=== PATIENT | female | born 1975 | race Caucasian/White ===

== ENCOUNTER 2021-11-14 22:36 | Emergency (ER) | payer BC, MEDICAID, SELFPAY ==
[2021-11-14 22:45] VITALS: BP 127/86; PULSE 86; RESP 18; TEMP 36.7; O2SAT 94; BMI 25.5
--- NOTE | 2021-11-14 23:03 | ED_ITS ---
HPI - General Adult General Time Seen by Provider: 23:09 Date Seen: 11/14/21 Chief complaint: Back Injury/Pain Stated complaint: back pain Time Seen by Provider: 11/14/21 22:37 Source: patient Mode of arrival: ambulatory Limitations: no limitations History of Present Illness HPI narrative: 38-year-old female who comes flank pain after a fall several days ago. Says she tripped cleaning the garage and hit her back on the edge of a shelf. There injury. Denies any numbness or tingling in the legs. Pain is worse with movement, breathing, coughing. She denies shortness of breath. She has been taking ibuprofen for this and applying topical balm but no other treatment. Denies hematuria. Related Data Home Medications Medication Instructions Recorded Confirmed sertraline 50 mg tablet mg 11/14/21 Allergies Allergy/AdvReac Type Severity Reaction Status Date / Time No Known Drug Allergies Allergy Verified 11/14/21 22:50 Review of Systems Status of ROS: Reports: 10 or more systems reviewed and unremarkable except as noted in History and below [facility] Surgical History (Updated 11/14/21 @ 22:51 by Cait Mike RN) History of surgery on left wrist Hx of hysterectomy Social History Smoking Status: Never smoker Do you use any of these nicotine containing products: None Second hand tobacco smoke exposure: No How often do you have a drink containing alcohol: 2-3 times a week AUDIT-C Alcohol total score: 3 Non-prescribed substance use: denies use Exam Narrative: Exam Narrative: General: Well-developed and well-nourished, no acute distress Head: Atraumatic and normocephalic Eyes: Pupils are equal reactive, extraocular motions intact, conjunctiva clear ENT: External nose and ears are normal, posterior pharynx without erythema or exudate Neck: No midline cervical tenderness, full spontaneous range of motion the neck, trachea midline, no adenopathy Heart: Regular rate and rhythm no murmurs or thrills Lungs: Clear to auscultation bilaterally without wheezes or crackles Abdomen: Soft, nontender, nondistended with active bowel sounds Musculoskeletal: Left flank and posterior lower rib tenderness with 4 cm bruise Neurologic: Awake, alert, and oriented x3, no gross focal neurologic deficits, cranial nerves intact as tested Psych: Mood and affect are appropriate Skin: No rashes Const: Vital Signs, click to edit/add: Vital Signs - 24 hr 11/14/21 22:45 Temperature 98.1 F Pulse Rate [Right Pulse Oximeter] 86 Respiratory Rate 18 Blood Pressure [Le ft Upper Arm] 127/86 Pulse Oximetry 94 Course Reevaluation(s) Reevaluation #1: CT scan is negative for any acute traumatic findings. Patient is stable for discharge Time: 01:22 Vital Signs Vital signs: Initial Vital Signs Temperature 98.1 F 11/14/21 22:45 Temperature Source Temporal Artery Scan 11/14/21 22:45 Pulse Rate 86 11/14/21 22:45 Respiratory Rate 18 11/14/21 22:45 Blood Pressure 127/86 11/14/21 22:45 Blood Pressure Mean 99 11/14/21 22:45 Blood Pressure Position Supine 11/14/21 22:45 Pulse Oximetry 94 11/14/21 22:45 Oxygen Delivery Method 11/14/21 22:45 Vital Signs Temperature 98.1 F 11/14/21 22:45 Pulse Rate 86 11/14/21 22:45 Respiratory Rate 18 11/14/21 22:45 Blood Pressure 127/86 11/14/21 22:45 Pulse Oximetry 94 11/14/21 22:45 Temperature 98.1 F 11/14/21 22:45 Pulse Rate 86 11/14/21 22:45 Respiratory Rate 18 11/14/21 22:45 Blood Pressure 127/86 11/14/21 22:45 Pulse Oximetry 94 11/14/21 22:45 Medical Decision Making MDM Narrative Medical decision making narrative: Patient seen and examined, prior records reviewed. Differential diagnosis includes but not limited to contusion, hematoma, psoas hematoma, renal laceration, rib fracture. Patient left flank pain after fall several days ago. Some bruising in the flank area. Due to continued pain out of proportion for soft tissue injury, CT ordered to evaluate for deeper injury. Toradol and Ativan are ordered for pain and spasm. Medical Records Medical records reviewed: Yes I reviewed the patient's medical records Lab Data Lab results reviewed: Yes I reviewed the patient's lab results Imaging Data CT scan - abdomen: Attestation: I have reviewed the pertinent imaging results. My impression: Negative Radiologist's impression: No acute findings Discharge Plan Discharge Clinical Impression: Contusion of flank Patient Disposition: Home, Self-Care Condition: Improved Instructions: Contusion in Adults (ED) Additional Instructions: Warm packs to areas of pain. Gentle stretching and gentle massage. Continue ibuprofen take Flexeril and [place] as needed. Do not drive for at least 12 hours after you take this. Follow-up with your primary care doctor this week. Activity Level: Activity as Tolerated Discharge Diet: Regular Prescriptions: No Action sertraline 50 mg tablet 0RF Label Comments: TAKE 1 TABLET BY MOUTH DAILY Stand Alone Forms: [facility] Info Instructions
--- NOTE | 2021-11-14 23:08 | CRLHL7_ITS ---
For Patients: As a result of the Century Cures Act, medical imaging exams and procedure reports are released immediately into your electronic medical record. You may view this report before your referring provider. If you have questions, please contact your health care provider. INDICATION: Right flank pain. TECHNIQUE: CT abdomen and pelvis without contrast. COMPARISON: None. FINDINGS: Lower chest: Unremarkable. Liver: Normal in size and attenuation. No suspicious masses. Gallbladder and bile ducts: No stones or inflammation. No biliary dilatation. Pancreas: Unremarkable. No mass or inflammation. Spleen: Normal in size. No masses. Adrenal glands: Normal in size. No nodules. Kidneys: Normal in size. No suspicious masses, stones, or hydronephrosis. GI tract: Unremarkable. Normal in caliber. No sign of mass or inflammation. Normal appendix. Vasculature: Abdominal aorta is normal in caliber. Lymph nodes: No lymphadenopathy. Peritoneum/Abdominal Wall: Unremarkable. No sign of mass or infiltration. No free air or significant free fluid. Pelvic organs: Unremarkable. No pelvic masses. Bones: Unremarkable for age. IMPRESSION: Normal CT of the abdomen and pelvis. No finding to explain right flank pain. Specifically no stones and no hydronephrosis. Please note that all CT scans at this facility use dose modulation, iterative reconstruction, and/or weight-based dosing when appropriate to reduce radiation dose to as low as reasonably achievable. Dictated by Román Parker MD @ 11/15/2021 1:21:25 AM (Electronically Signed)
[2021-11-14] MEDS: KETOROLAC 30 MG/ML inj IM (23:15)
[2021-11-14] MEDS: LORazepam 0.5 MG TABLET PO (23:15)
== END 2021-11-15 01:29 | disposition home or self-care (01) ==
LOC: ED 23:48
PROVIDERS: Emergency Provider Family Medicine
DX: S30.1XXA Contusion of abdominal wall, initial encounter (principal); W01.10XA Fall on same level from slipping, tripping and stumbling with subsequent striking against unspecified object, initial encounter
CPT/HCPCS: 74176; 96372; 99284; A9270; J1885

== ENCOUNTER 2022-11-20 17:01 | Emergency (ER) | payer BC, MEDICAID, SELFPAY ==
[2022-11-20 17:04] VITALS: BP 187/124; PULSE 111; RESP 16; TEMP 36.5; O2SAT 95; BMI 22.9
--- NOTE | 2022-11-20 17:33 | ED_ITS ---
HPI - General Adult General Chief complaint: Fall/Minor Trauma Stated complaint: face pain from fall yesterday Time Seen by Provider: 11/20/22 17:10 History of Present Illness HPI narrative: Pt states [place] when a dog ran out in front of her. Pt states she hit face/nose on concrete and is unsure if she had a LOC. Pt states she immediately got up and walked to bathroom with friends and then started to faint in bathroom. Pt states she was evaluated by [facility] and taken to [place] [facility]. Pt states they did blood work, but no imaging . Pt states since this morning, she feels very off , out of it, and like mentally something is really wrong. I can't stop crying, like I feel very depressed and for no reason. All of my teeth hurt. Pt does score positive for suicide screening, states yes to feeling suicidal over past two weeks. 47-year-old woman presenting to the emergency department just not feeling very well with a lot of pain in her face. Seems primarily related to tooth that she broke in a fall yesterday at a festival. She actually did a face plant. She is not complaining of neck or back pain. There may have been loss of consciousness. Been feeling more stressed lately and says she has been doing really well but in last 24 hours then she did have a couple alcoholic drinks. She has not contacted her sponsor. Was evaluated in the local emergency department yesterday without imaging. Blood work was done. She says she had been drinking at the festival in fact they had just gotten there and a dog ran out in front of her and she tripped over the leash falling face down. They did give her a sealant to apply to the tooth and she is to follow up with a dentist but has worried about how far out that appointment will be in the amount of ?shit? 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 She feels embarrassed and generally hides her smile. In fact all of her teeth hurt. Her head feels funny and she is not sure if this is related to her injury or becoming more depressed. Just feels increasingly off and out of it and feels like something is really wrong. I did review concern of suicidality; Ms. Duque clearly denies and indicates that she has resources. Related Data Previous Rx's Medication Instructions Recorded sertraline 50 mg tablet 50 mg PO QDAY #90 tabs 12/21/21 Allergies Allergy/AdvReac Type Severity Reaction Status Date / Time No Known Drug Allergies Allergy Verified 11/20/22 17:13 Review of Systems Status of ROS: Reports: 6 or more systems reviewed and unremarkable except as noted in History and below [facility] Medical History History of hypothyroidism ?Z86.39 - Personal history of other endocrine, nutritional and metabolic disease (ICD-10) Surgical History History of foot surgery ?Z98.890 - Other specified postprocedural states (ICD-10) Hx of hysterectomy ?Z90.710 - Acquired absence of both cervix and uterus (ICD-10) History of surgery on left wrist ?Z98.890 - Other specified postprocedural states (ICD-10) Social History Smoking Status: Current every day smoker Do you use any of these nicotine containing products: E-Cigarettes and Vaping Products Second hand tobacco smoke exposure: No How often do you have a drink containing alcohol: 2-3 times a week AUDIT-C Alcohol total score: 3 Non-prescribed substance use: denies use service: No Exam Narrative: Exam Narrative: Pleasant. Smiles hesitantly. Generally flushed. Cranial nerves 2-12 intact. Extraocular movements are full. Fluid. There is light abrasion at the philtrum of her lip. Oropharyngeal exam shows some paint over fractured tooth 11. TMJs are not tender. Neck is supple nontender back nontender. She is breathing easily. Moving all extremities without difficulty. There is no discrete pain beyond what I think is in the area of her tooth. Does have however some right TMJ area pain. Const: Vital Signs, click to edit/add: Vital Signs - 24 hr 11/20/22 17:04 Temperature 97.7 F Pulse Rate [Pulse Oximeter] 111 H Respiratory Rate 16 Blood Pressure [Ri ght Upper Arm] 187/124 H Pulse Oximetry 95 Oxygen Delivery Me thod Room Air Documenting provider has reviewed patient's vital signs: yes Course Vital Signs Vital signs: Initial Vital Signs Temperature 97.7 F 11/20/22 17:04 Temperature Source Temporal Artery Scan 11/20/22 17:04 Pulse Rate 111 H 11/20/22 17:04 Respiratory Rate 16 11/20/22 17:04 Blood Pressure 187/124 H 11/20/22 17:04 Blood Pressure Mean 145 H 11/20/22 17:04 Blood Pressure Position Sitting 11/20/22 17:04 Pulse Oximetry 95 11/20/22 17:04 Oxygen Delivery Method Room Air 11/20/22 17:04 Vital Signs Temperature 97.7 F 11/20/22 17:04 Pulse Rate 111 H 11/20/22 17:04 Respiratory Rate 16 11/20/22 17:04 Blood Pressure 187/124 H 11/20/22 17:04 Pulse Oximetry 95 11/20/22 17:04 Oxygen Delivery Method Room Air 11/20/22 17:04 Temperature 97.7 F 11/20/22 17:04 Pulse Rate 96 11/20/22 19:32 Respiratory Rate 16 11/20/22 19:32 Blood Pressure 178/119 H 11/20/22 19:32 Pulse Oximetry 95 11/20/22 17:04 Oxygen Delivery Method Room Air 11/20/22 17:04 Medical Decision Making MDM Narrative Medical decision making narrative: I think certainly reasonable to image head and facial bones. If nothing else would provides peace of mind as I think anxiety stress is amplifying other history/symptoms. I did offer a bupivacaine injection which I think ultimately made her feel more nervous. Also indicating general pain more than discrete tooth pain. Settled on a couple tabs of [place]. Perhaps also return to alcohol ingestion generates a feeling of more of a toxic effect than prior generate this feeling of ?out of it?. As well as feelings of sadness. I did review the CT images of head and facial bones and could not appreciate any acute abnormality. Noncontrast CT images acquired through the facial bones. Comparison None. Findings The facial bones are intact. No acute fracture or dislocation. No soft tissue hematoma. Mild sinusoidal nasal septal deviation. Mild right maxillary sinus mucosal thickening. Small left maxillary sinus retention cyst or polyp. The globes are symmetric. No retrobulbar hematoma. Dental caries. IMPRESSION: No acute fracture or dislocation of the facial bones. Noncontrast CT images acquired through the brain. COMPARISON: None. FINDINGS: The ventricles and sulci are within normal limits for patient age. No mass effect or midline shift. The cheng-white differentiation is maintained. No acute intracranial hemorrhage or pathologic extra-axial fluid collection. The globes are symmetric. The calvarium is intact. Small left maxillary sinus retention cyst or polyp. Mild right maxillary sinus mucosal thickening. Trace right mastoid effusion. IMPRESSION: No acute intracranial hemorrhage or mass effect. Overall improved and I think relieved during time in the emergency department. Discussed use of mask at her work for comfort. See patient discharge plan Discharge Plan Discharge Clinical Impression: Pain, dental, Sadness Patient Disposition: Home, Self-Care Condition: Improved Additional Instructions: Try to get quality and regular sleep. Be up to see the morning sunlight. Try to get in little heart pumping exercise daily. Surely all of this will be good for your mental health. Think it is a fine idea to reach out to Dr. Edwards. Dust off your relationship with your therapist. This dental list is a place to start other than any prior clinic you have been to. Reach out to your social support network. Plan something fun to do with other people this coming week. And/or something special just for you. Can take up to 800mg of ibuprofen or up to 1000mg of acetaminophen per dose. Alternative to the ibuprofen might be up to 500mg of naproxen 2 times daily. Prescriptions: No Action sertraline 50 mg tablet 50 mg PO QDAY Qty: 90 3RF Patient Comments: TAKE 1 TABLET BY MOUTH DAILY Follow Up/Referrals: Ravi Smith MD [Primary Care Provider] - Stand Alone Forms: [employer] Info Instructions
--- NOTE | 2022-11-20 17:54 | CRLHL7_ITS ---
For Patients: As a result of the Century Cures Act, medical imaging exams and procedure reports are released immediately into your electronic medical record. You may view this report before your referring provider. If you have questions, please contact your health care provider. INDICATION: Fall. TECHNIQUE: Noncontrast CT images acquired through the brain. COMPARISON: None. FINDINGS: The ventricles and sulci are within normal limits for patient age. No mass effect or midline shift. The cheng-white differentiation is maintained. No acute intracranial hemorrhage or pathologic extra-axial fluid collection. The globes are symmetric. The calvarium is intact. Small left maxillary sinus retention cyst or polyp. Mild right maxillary sinus mucosal thickening. Trace right mastoid effusion. IMPRESSION: No acute intracranial hemorrhage or mass effect. Please note that all CT scans at this facility use dose modulation, iterative reconstruction, and/or weight-based dosing when appropriate to reduce radiation dose to as low as reasonably achievable. Dictated by Jw Zuniga MD @ 11/20/2022 6:39:44 PM (Electronically Signed)
--- NOTE | 2022-11-20 17:54 | CRLHL7_ITS ---
For Patients: As a result of the Cures Act, medical imaging exams and procedure reports are released immediately into your electronic medical record. You may view this report before your referring provider. If you have questions, please contact your health care provider. INDICATION: Fall. Technique Noncontrast CT images acquired through the facial bones. Comparison None. Findings The facial bones are intact. No acute fracture or dislocation. No soft tissue hematoma. Mild sinusoidal nasal septal deviation. Mild right maxillary sinus mucosal thickening. Small left maxillary sinus retention cyst or polyp. The globes are symmetric. No retrobulbar hematoma. Dental caries. IMPRESSION: No acute fracture or dislocation of the facial bones. Please note that all CT scans at this facility use dose modulation, iterative reconstruction, and/or weight-based dosing when appropriate to reduce radiation dose to as low as reasonably achievable. Dictated by Jw Zuniga MD @ 11/20/2022 6:45:32 PM (Electronically Signed)
[2022-11-20] MEDS: BUPIVACAINE 0.25% 30 ML INJECTION (18:12)
[2022-11-20] MEDS: HYDROCODONE-ACETAMIN 5-325 MG 1 TAB 2 TAB PO (19:23)
[2022-11-20 19:32] VITALS: BP 178/119; PULSE 96; RESP 16
== END 2022-11-20 19:32 | disposition home or self-care (01) ==
PROVIDERS: Emergency Provider Family Medicine; PCP Family Medicine
DX: K08.89 Other specified disorders of teeth and supporting structures (principal)
CPT/HCPCS: 70450; 70486; 99283; 99284; A9270; J0665

== ENCOUNTER 2023-07-07 13:29 | Emergency (ER) | payer BC, SELFPAY ==
[2023-07-07 14:01] VITALS: BP 164/123; PULSE 100; RESP 24; TEMP 36.8; O2SAT 98; BMI 25.1
--- NOTE | 2023-07-07 15:18 | ED.PSYCH ---
HPI - Psych General Chief Complaint: Psychiatric Problem/Disorder Stated Complaint: Suicidal Time Seen by Provider: 07/07/23 14:24 History of Present Illness HPI Narrative: This 48-year-old female comes in reporting depression and anxiety symptoms. She states that she is sober from alcohol abuse for the past 4 years. She does not report any use of alcohol or street drugs currently. She has always had some depression in and anxiety and has been on medications in the past but currently is not taking anything. She states that she is not sleeping well at night. She does not report any specific triggers that have made things worse for her. She states that she does have some thoughts of not wanting to live but does not have any specific plan and states that she would never harm herself. She is interested in obtaining prescriptions for medicine to help her feel better. Related Data Previous Rx's Medication Instructions Recorded sertraline 50 mg tablet 50 mg PO QDAY #90 tabs 12/21/21 hydroxyzine HCl 25 mg tablet 25 mg PO QID #30 tabs 07/07/23 lorazepam 0.5 mg tablet (Ativan) 0.5 mg PO BID PRN #15 tabs 07/07/23 sertraline 50 mg tablet (Zoloft) 50 mg PO DAILY #30 tabs 07/07/23 Allergies Allergy/AdvReac Type Severity Reaction Status Date / Time No Known Drug Allergies Allergy Verified 11/20/22 17:13 Review of Systems Status of ROS: Reports: 10 or more systems reviewed and unremarkable except as noted in History and below Narrative: Constitutional: No fevers, no weight gain or loss. Eyes: No discharge. No vision changes. HENT: No congestion, no sore throat, no ear pain. Cardiovascular: No chest pain, no palpitations. Respiratory: No shortness of breath, no wheezes, no cough. Gastrointestinal: No abdominal pain, no vomiting, no diarrhea. Genitourinary: No dysuria, no hematuria. Musculoskeletal: Normal range of motion. Skin: No rashes, no pruritis. Neurological: No dizziness, weakness, sensory change, speech change. Endo/Heme/Allergies: No bruising or bleeding. No polydipsia. Pysch: Anxiety and depression with insomnia. She admits to having some thoughts of not wanting to live but does not specify any particular plan and has not harmed herself in the past. All other systems reviewed and are negative. PFSH PFSH Medical History History of hypothyroidism ?Z86.39 - Personal history of other endocrine, nutritional and metabolic disease (ICD-10) Surgical History History of foot surgery ?Z98.890 - Other specified postprocedural states (ICD-10) Hx of hysterectomy ?Z90.710 - Acquired absence of both cervix and uterus (ICD-10) History of surgery on left wrist ?Z98.890 - Other specified postprocedural states (ICD-10) Social History Smoking Status: Current every day smoker Do you use any of these nicotine containing products: E-Cigarettes and Vaping Products Second hand tobacco smoke exposure: No How often do you have a drink containing alcohol: 2-3 times a week AUDIT-C Alcohol total score: 3 Non-prescribed substance use: denies use service: No Exam Narrative: Exam Narrative: Constitutional: Well-developed, well-nourished, no acute distress. HEENT: Normocephalic, atraumatic. Neck: Normal range of motion. Nontender. Supple. Heart: Regular. No murmurs. Normal rate. Intact distal pulses. Lungs: Clear to auscultation. No chest discomfort. No wheezes, rhonchi, or rales. Abdomen: Normal bowel sounds. Nontender. No rebound tenderness. Genitalia: Deferred. Back: No midline tenderness. Normal range of motion. Extremities: Normal range of motion. No injury. Skin: Intact. No rash. Warm. No erythema or pallor. Neurologic: No altered sensation. No weakness. Alert and oriented. Psychiatric: She is tearful at times. She appears anxious with depression. She reports insomnia. Nursing notes and vitals signs are reviewed. Const: Vital Signs, click to edit/add: Vital Signs - 24 hr 07/07/23 14:01 Temperature 98.3 F Pulse Rate [Pulse Oximeter] 100 Respiratory Rate 24 Blood Pressure [Ri ght Upper Arm] 164/123 H Pulse Oximetry 98 Oxygen Delivery Me thod Room Air Course Vital Signs Vital signs: Initial Vital Signs Temperature 98.3 F 07/07/23 14:01 Temperature Source Temporal Artery Scan 07/07/23 14:01 Pulse Rate 100 07/07/23 14:01 Respiratory Rate 24 07/07/23 14:01 Blood Pressure 164/123 H 07/07/23 14:01 Blood Pressure Mean 136 H 07/07/23 14:01 Pulse Oximetry 98 07/07/23 14:01 Oxygen Delivery Method Room Air 07/07/23 14:01 Vital Signs Temperature 98.3 F 07/07/23 14:01 Pulse Rate 100 07/07/23 14:01 Respiratory Rate 24 07/07/23 14:01 Blood Pressure 164/123 H 07/07/23 14:01 Pulse Oximetry 98 07/07/23 14:01 Oxygen Delivery Method Room Air 07/07/23 14:01 Temperature 98.3 F 07/07/23 14:01 Pulse Rate 100 07/07/23 14:01 Respiratory Rate 24 07/07/23 14:01 Blood Pressure 164/123 H 07/07/23 14:01 Pulse Oximetry 98 07/07/23 14:01 Oxygen Delivery Method Room Air 07/07/23 14:01 MDM - Psych MDM Narrative Medical decision making narrative: This 48-year-old female comes in for psychiatric evaluation and treatment. I did discuss the role of a telehealth assessment. She states that she underwent this about 4 years ago and was placed in an inpatient facility for 3 days. She says it was the most terrible experience for her. She states that she feels she does not need any kind of in patient treatment but is interested in restarting medications to help her with her depression and anxiety. She did receive a oral dose of Ativan 1 mg to treat her current symptoms. I did provide prescription for more tablets of Ativan 0.5 mg with the understanding that we will not refill this here. She also received prescription for Zoloft and hydroxyzine. She is instructed to follow-up with her primary physician in 2-3 weeks for ongoing management or return if worsening symptoms happen. Discharge Plan Discharge Clinical Impression: Anxiety, Depression Patient Disposition: Home w/ Parent or Adult Condition: Stable Additional Instructions: Take medications as prescribed. Follow up with primary physician in 2-3 weeks for ongoing management. Return if not improving or worsening symptoms happen. Prescriptions: New lorazepam [Ativan] 0.5 mg tablet 0.5 mg PO BID PRNQty: 15 0RF hydroxyzine HCl 25 mg tablet 25 mg PO QID Qty: 30 0RF sertraline [Zoloft] 50 mg tablet 50 mg PO DAILY Qty: 30 2RF No Action sertraline 50 mg tablet 50 mg PO QDAY Qty: 90 3RF Patient Comments: TAKE 1 TABLET BY MOUTH DAILY Follow Up/Referrals: Ravi Smith MD [Primary Care Provider] - Stand Alone Forms: [facility] Info Instructions
[2023-07-07] MEDS: LORazepam 1 MG TABLET PO (15:25)
== END 2023-07-07 15:35 | disposition home or self-care (01) ==
PROVIDERS: Emergency Provider Emergency Medicine Emergency Medical Services; PCP Family Medicine
DX: F32.A Depression, unspecified (principal); F41.9 Anxiety disorder, unspecified; F10.10 Alcohol abuse, uncomplicated
CPT/HCPCS: 99284; A9270

== ENCOUNTER 2023-07-19 16:04 | Emergency (ER) | payer BC, SELFPAY ==
[2023-07-19 16:34] VITALS: BP 159/115; PULSE 96; RESP 16; TEMP 36.5; O2SAT 99; BMI 22.7
--- NOTE | 2023-07-19 17:28 | ED_ITS ---
HPI - Anxiety General Chief Complaint: Anxiety Stated Complaint: Anxiety Time Seen by Provider: 07/19/23 16:05 History of Present Illness HPI narrative: This patient is a 48-year-old female that has anxiety and depression symptoms. 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 She does however have significant anxiety symptoms with insomnia. She was seen by me about 12 days ago and benefited from an oral dose of Ativan 1 mg. She did receive a prescription for Ativan 0.5 mg but states that she was afraid to take them. She also received a prescription for Zoloft and has not started the medicine. She had an appointment with her primary physician and received a phone call that the appointment was canceled. She comes in here instead. Related Data Previous Rx's Medication Instructions Recorded sertraline 50 mg tablet 50 mg PO QDAY #90 tabs 12/21/21 hydroxyzine HCl 25 mg tablet 25 mg PO QID #30 tabs 07/07/23 lorazepam 0.5 mg tablet (Ativan) 0.5 mg PO BID PRN #15 tabs 07/07/23 sertraline 50 mg tablet (Zoloft) 50 mg PO DAILY #30 tabs 07/07/23 Allergies Allergy/AdvReac Type Severity Reaction Status Date / Time No Known Drug Allergies Allergy Verified 07/19/23 16:40 Review of Systems Status of ROS: Reports: 10 or more systems reviewed and unremarkable except as noted in History and below Narrative: Constitutional: No fevers, no weight gain or loss. Eyes: No discharge. No vision changes. HENT: No congestion, no sore throat, no ear pain. Cardiovascular: No chest pain, no palpitations. Respiratory: No shortness of breath, no wheezes, no cough. Gastrointestinal: No abdominal pain, no vomiting, no diarrhea. Genitourinary: No dysuria, no hematuria. Musculoskeletal: Normal range of motion. Skin: No rashes, no pruritis. Neurological: No dizziness, weakness, sensory change, speech change. Endo/Heme/Allergies: No bruising or bleeding. No polydipsia. Pysch: no suicidality. Anxiety and insomnia as described above. All other systems reviewed and are negative. [facility] Medical History History of hypothyroidism ?Z86.39 - Personal history of other endocrine, nutritional and metabolic disease (ICD-10) Surgical History History of foot surgery ?Z98.890 - Other specified postprocedural states (ICD-10) Hx of hysterectomy ?Z90.710 - Acquired absence of both cervix and uterus (ICD-10) History of surgery on left wrist ?Z98.890 - Other specified postprocedural states (ICD-10) Social History Smoking Status: Current every day smoker Do you use any of these nicotine containing products: E-Cigarettes and Vaping Products Second hand tobacco smoke exposure: No How often do you have a drink containing alcohol: monthly or less How often do you have six or more drinks on one occasion: Never AUDIT-C Alcohol total score: 1 Non-prescribed substance use: denies use service: No Exam Narrative: Exam Narrative: Constitutional: Well-developed, well-nourished, no acute distress. HEENT: Normocephalic, atraumatic. Neck: Normal range of motion. Nontender. Supple. Heart: Regular. No murmurs. Normal rate. Intact distal pulses. Lungs: Clear to auscultation. No chest discomfort. No wheezes, rhonchi, or rales. Abdomen: Normal bowel sounds. Nontender. No rebound tenderness. Genitalia: Deferred. Back: No midline tenderness. Normal range of motion. Extremities: Normal range of motion. No injury. Skin: Intact. No rash. Warm. No erythema or pallor. Neurologic: No altered sensation. No weakness. Alert and oriented. Psychiatric: No suicidality. The patient is tearful at times but always pleasant and cooperative. She does not appear to be extremely anxious. Nursing notes and vitals signs are reviewed. Const: Vital Signs, click to edit/add: Vital Signs - 24 hr 07/19/23 16:34 Temperature 97.7 F Pulse Rate [Pulse Oximeter] 96 Respiratory Rate 16 Blood Pressure [Le ft Upper Arm] 159/115 H Pulse Oximetry 99 Oxygen Delivery Me thod Room Air Course Vital Signs Vital signs: Initial Vital Signs Temperature 97.7 F 07/19/23 16:34 Temperature Source Temporal Artery Scan 03/20/24 16:34 Pulse Rate 96 07/19/23 16:34 Respiratory Rate 16 07/19/23 16:34 Blood Pressure 159/115 H 07/19/23 16:34 Blood Pressure Mean 129 H 07/19/23 16:34 Blood Pressure Position Sitting 07/19/23 16:34 Pulse Oximetry 99 07/19/23 16:34 Oxygen Delivery Method Room Air 07/19/23 16:34 Vital Signs Temperature 97.7 F 07/19/23 16:34 Pulse Rate 96 07/19/23 16:34 Respiratory Rate 16 07/19/23 16:34 Blood Pressure 159/115 H 07/19/23 16:34 Pulse Oximetry 99 07/19/23 16:34 Oxygen Delivery Method Room Air 07/19/23 16:34 Temperature 97.7 F 07/19/23 16:34 Pulse Rate 96 07/19/23 16:34 Respiratory Rate 16 07/19/23 16:34 Blood Pressure 159/115 H 07/19/23 16:34 Pulse Oximetry 99 07/19/23 16:34 Oxygen Delivery Method Room Air 07/19/23 16:34 MDM - Anxiety MDM Narrative Medical decision making narrative: This patient has prescriptions for Zoloft and Ativan in her keeping but has not used these medicines. I encouraged her to use them as indicated and directed. She did use some hydroxyzine a few times which helped her with anxiety and ins omnia. She is asking for recommendation for primary care physician to help manage these symptoms. I did make some recommendations. The patient is not showing any sign of suicidality or worsening symptoms. She appears better in her mood then when I saw her 12 days ago. I encouraged to use the medicines she has as prescribed and to follow up with the primary care appointment. Discharge Plan Discharge Clinical Impression: Insomnia, Anxiety Patient Disposition: Home, Self-Care Condition: Stable Additional Instructions: Take medication as prescribed. Follow up with MD return if worsening. Prescriptions: No Action lorazepam [Ativan] 0.5 mg tablet 0.5 mg PO BID PRNQty: 15 0RF hydroxyzine HCl 25 mg tablet 25 mg PO QID Qty: 30 0RF sertraline [Zoloft] 50 mg tablet 50 mg PO DAILY Qty: 30 2RF sertraline 50 mg tablet 50 mg PO QDAY Qty: 90 3RF Patient Comments: TAKE 1 TABLET BY MOUTH DAILY Follow Up/Referrals: Ravi Smith MD [Primary Care Provider] - Stand Alone Forms: [employer] Info Instructions
== END 2023-07-19 18:00 | disposition home or self-care (01) ==
LOC: ED 17:48
PROVIDERS: Emergency Provider Emergency Medicine Emergency Medical Services; PCP Family Medicine
DX: G47.00 Insomnia, unspecified (principal); F41.9 Anxiety disorder, unspecified
CPT/HCPCS: 99283; 99284

== ENCOUNTER 2024-01-10 12:28 | Outpatient (CLI) | payer MEDICAID, SELFPAY | END 2024-01-10 12:29 | disposition home or self-care (01) | LOC: AMB 01-25 01:34 | PROVIDERS: PCP Family Medicine; Visit Provider Family Medicine | DX: T65.92XA Toxic effect of unspecified substance, intentional self-harm, initial encounter (principal); Y92.039 Unspecified place in apartment as the place of occurrence of the external cause | CPT/HCPCS: A0425; A0427 ==

== ENCOUNTER 2024-01-10 12:58 | Emergency (ER) | payer MEDICAID, SELFPAY ==
[2024-01-10] VITALS (19 sets, daily range): BP systolic 121–168; BP diastolic 84–135; PULSE 78–131; RESP 16–28; TEMP 36.4; O2SAT 86–99; BMI 27.5
--- NOTE | 2024-01-10 13:05 | CRLHL7_ITS ---
For Patients: As a result of the Century Cures Act, medical imaging exams and procedure reports are released immediately into your electronic medical record. You may view this report before your referring provider. If you have questions, please contact your health care provider. INDICATION: Overdose TECHNIQUE: 1 view chest radiograph COMPARISON: 09/16/2019 FINDINGS: Devices: None. Lung volumes are moderate. Lungs clear. No acute findings. No pleural effusion. No pneumothorax. Heart size is normal. IMPRESSION: Lungs clear. No acute findings. Dictated by Marian Baumann MD @ 01/10/2024 2:40:52 PM (Electronically Signed)
--- NOTE | 2024-01-10 13:05 | CRLHL7_ITS ---
For Patients: As a result of the Cures Act, medical imaging exams and procedure reports are released immediately into your electronic medical record. You may view this report before your referring provider. If you have questions, please contact your health care provider. INDICATION: Confusion. Suspected overdose. TECHNIQUE: CT head without contrast. COMPARISON: CT head without contrast 11/20/2022. FINDINGS: There is no mass effect or midline shift. No hydrocephalus. No CT evidence of acute hemorrhage or infarction. No abnormal extra-axial fluid collection. Bone windows show no acute calvarial fracture. Mild paranasal sinus mucosal thickening. No discrete air-fluid level. Orbits as imaged are unremarkable. IMPRESSION: No acute intracranial abnormality. Dictated by Duran May MD @ 01/10/2024 3:01:25 PM Please note that all CT scans at this facility use dose modulation, iterative reconstruction, and/or weight-based dosing when appropriate to reduce radiation dose to as low as reasonably achievable. Dictated by: Duran May MD @ 01/10/2024 15:01:30 (Electronically Signed)
--- NOTE | 2024-01-10 13:12 | ED.GENADULT ---
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 (Negative) Urine Urobilinogen (0.2-1.0) Ur Leukocyte Esterase (Negative) Urine RBC (0-2) Urine WBC (0-5) Ur Squamous Epith Cells (None-Few) Amorphous Sediment (None) Urine Bacteria (None) Fine Granular Casts (None) Salicylates < 1.0 L (1.0-10) mg/dL Urine Opiates Screen (Negative) Ur Oxycodone Screen (Negative) Urine Methadone Screen (Negative) Acetaminophen < 10.0 L (10.0-30.0) ug/mL Ur Barbiturates Screen (Negative) U Tricyclic Antidepress (Negative) Ur Phencyclidine Scrn (Negative) Ur Amphetamines Screen (Negative) U Methamphetamines Scrn (Negative) U Benzodiazepines Scrn (Negative) Urine Cocaine Screen (Negative) U Marijuana (THC) Screen (Negative) Ur Drug Screen Comment Ethyl Alcohol 0.56 H* < 0.01 L (0.01-0.03) % POC Troponin I (0.01-0.04) ng/ml <Jesse Chavarria MD - Last Filed: 01/10/24 15:56> Lab Results 01/10/24 01/10/24 01/10/24 Range/Units 13:05 13:06 13:12 WBC 7.12 (4.50-11.00) K/uL RBC 5.35 H (4.00-5.20) m/uL Hgb 17.3 H (12.0-16.0) gm/dL Hct 51.3 H (33.0-51.0) % MCV 96 (80-100) fL MCH 32 (26-34) pg MCHC 34 (32-36) gm/dL RDW Coeff of Cally 12.6 (11.5-15.5) % Plt Count 314 (140-440) K/uL Neut % (Auto) 50.9 (42.0-72.0) % Lymph % (Auto) 43.5 (20-44) % [place] % (Auto) 4.5 (0.0-11.0) % Eos % (Auto) 0.4 (0.0-7.0) % Baso % (Auto) 0.6 (0.0-3.0) % Neut # (Auto) 3.62 (1.7-7.0) K/uL Lymph # (Auto) 3.10 H (0.90-2.90) K/uL [place] # (Auto) 0.30 (0.00-0.90) K/UL Eos # (Auto) 0.03 (0.00-0.50) K/uL Baso # (Auto) 0.04 (0.00-0.30) K/uL Abs Immat Gran (auto) 0.01 (0.00-0.30) K/uL Imm/Tot Granulo (auto) 0.1 % VBG pH 7.301 L (7.32-7.43) VBG pCO2 47 (40-50) mmHG VBG pO2 48.9 H (25-47) mmHG VBG HCO3 23 (21-28) mmol/L Sodium 142 (135-149) mmol/L Potassium 3.5 L (3.6-5.1) mmol/L Chloride 105 (96-114) mmol/L Carbon Dioxide 23 (20-32) mmol/L Anion Gap 14 (7-15) mEq/L BUN 12 (7-30) mg/dL Creatinine 0.9 (0.5-1.5) mg/dL Estimated Creat Clear 64.58 Estimated GFR 78 ml/min Glucose 78 (60-115) mg/dL Lactate 2.9 H (0.5-1.9) mmol/L Calcium 8.8 (8.4-10.6) mg/dL Magnesium 1.9 (1.5-2.6) mg/dL Total Bilirubin (0.1-1.5) mg/dL Direct Bilirubin (0.0-0.5) mg/dL AST (12-35) U/L ALT (4-35) U/L Alkaline Phosphatase (40-150) U/L NT-Pro-B Natriuret Pep pg/mL Total Protein (6.0-8.3) g/dL Albumin (3.3-5.0) g/dL HCG, Qual (Negative) Urine Color Yellow (Yellow) Urine Appearance Clear (Clear) Urine pH 5.5 (5.0-8.5) Ur Specific [place] 1.025 (1.000-1.030) Urine Protein 2+ A (Negative) Urine Glucose (UA) Negative (Negative) Urine Ketones 1+ A (Negative) Urine Blood 1+ A (Negative) Urine Nitrite Negative (Negative) Urine Bilirubin Negative (Negative) Urine Urobilinogen 0.2 (0.2-1.0) Ur Leukocyte Esterase Negative (Negative) Urine RBC 0-2 (0-2) Urine WBC 0-2 (0-5) Ur Squamous Epith Cells Few (None-Few) Amorphous Sediment Few A (None) Urine Bacteria Moderate A (None) Fine Granular Casts Few A (None) Salicylates (1.0-10) mg/dL Urine Opiates Screen Negative (Negative) Ur Oxycodone Screen Negative (Negative) Urine Methadone Screen Negative (Negative) Acetaminophen (10.0-30.0) ug/mL Ur Barbiturates Screen Negative (Negative) U Tricyclic Antidepress Negative (Negative) Ur Phencyclidine Scrn Negative (Negative) Ur Amphetamines Screen Negative (Negative) U Methamphetamines Scrn Negative (Negative) U Benzodiazepines Scrn Negative (Negative) Urine Cocaine Screen Negative (Negative) U Marijuana (THC) Screen Negative (Negative) Ur Drug Screen Comment See Note Ethyl Alcohol (0.01-0.03) % POC Troponin I 0.00 L (0.01-0.04) ng/ml 01/10/24 01/11/24 Range/Units 13:12 08:18 WBC (4.50-11.00) K/uL RBC (4.00-5.20) m/uL Hgb (12.0-16.0) gm/dL Hct (33.0-51.0) % MCV (80-100) fL MCH (26-34) pg MCHC (32-36) gm/dL RDW Coeff of Cally (11.5-15.5) % Plt Count (140-440) K/uL Neut % (Auto) (42.0-72.0) % Lymph % (Auto) (20-44) % [place] % (Auto) (0.0-11.0) % Eos % (Auto) (0.0-7.0) % Baso % (Auto) (0.0-3.0) % Neut # (Auto) (1.7-7.0) K/uL Lymph # (Auto) (0.90-2.90) K/uL [place] # (Auto) (0.00-0.90) K/UL Eos # (Auto) (0.00-0.50) K/uL Baso # (Auto) (0.00-0.30) K/uL Abs Immat Gran (auto) (0.00-0.30) K/uL Imm/Tot Granulo (auto) % VBG pH (7.32-7.43) VBG pCO2 (40-50) mmHG VBG pO2 (25-47) mmHG VBG HCO3 (21-28) mmol/L Sodium (135-149) mmol/L Potassium (3.6-5.1) mmol/L Chloride (96-114) mmol/L Carbon Dioxide (20-32) mmol/L Anion Gap (7-15) mEq/L BUN (7-30) mg/dL Creatinine (0.5-1.5) mg/dL Estimated Creat Clear Estimated GFR ml/min Glucose (60-115) mg/dL Lactate (0.5-1.9) mmol/L Calcium (8.4-10.6) mg/dL Magnesium Cancelled (1.5-2.6) mg/dL Total Bilirubin 0.6 (0.1-1.5) mg/dL Direct Bilirubin 0.4 (0.0-0.5) mg/dL AST 68 H (12-35) U/L ALT 30 (4-35) U/L Alkaline Phosphatase 71 (40-150) U/L NT-Pro-B Natriuret Pep < 20 pg/mL Total Protein 7.9 (6.0-8.3) g/dL Albumin 4.9 (3.3-5.0) g/dL HCG, Qual Negative (Negative) Urine Color (Yellow) Urine Appearance (Clear) Urine pH (5.0-8.5) Ur Specific [place] (1.000-1.030) Urine Protein (Negative) Urine Glucose (UA) (Negative) Urine Ketones (Negative) Urine Blood (Negative) Urine Nitrite (Negative) Urine Bilirubin (Negative) Urine Urobilinogen (0.2-1.0) Ur Leukocyte Esterase (Negative) Urine RBC (0-2) Urine WBC (0-5) Ur Squamous Epith Cells (None-Few) Amorphous Sediment (None) Urine Bacteria (None) Fine Granular Casts (None) Salicylates < 1.0 L (1.0-10) mg/dL Urine Opiates Screen (Negative) Ur Oxycodone Screen (Negative) Urine Methadone Screen (Negative) Acetaminophen < 10.0 L (10.0-30.0) ug/mL Ur Barbiturates Screen (Negative) U Tricyclic Antidepress (Negative) Ur Phencyclidine Scrn (Negative) Ur Amphetamines Screen (Negative) U Methamphetamines Scrn (Negative) U Benzodiazepines Scrn (Negative) Urine Cocaine Screen (Negative) U Marijuana (THC) Screen (Negative) Ur Drug Screen Comment Ethyl Alcohol 0.56 H* < 0.01 L (0.01-0.03) % POC Troponin I (0.01-0.04) ng/ml <Harmeet Blackmon, DO - Last Filed: 01/12/24 17:03> Lab Results 01/10/24 01/10/24 01/10/24 Range/Units 13:05 13:06 13:12 WBC 7.12 (4.50-11.00) K/uL RBC 5.35 H (4.00-5.20) m/uL Hgb 17.3 H (12.0-16.0) gm/dL Hct 51.3 H (33.0-51.0) % MCV 96 (80-100) fL MCH 32 (26-34) pg MCHC 34 (32-36) gm/dL RDW Coeff of Cally 12.6 (11.5-15.5) % Plt Count 314 (140-440) K/uL Neut % (Auto) 50.9 (42.0-72.0) % Lymph % (Auto) 43.5 (20-44) % [place] % (Auto) 4.5 (0.0-11.0) % Eos % (Auto) 0.4 (0.0-7.0) % Baso % (Auto) 0.6 (0.0-3.0) % Neut # (Auto) 3.62 (1.7-7.0) K/uL Lymph # (Auto) 3.10 H (0.90-2.90) K/uL [place] # (Auto) 0.30 (0.00-0.90) K/UL Eos # (Auto) 0.03 (0.00-0.50) K/uL Baso # (Auto) 0.04 (0.00-0.30) K/uL Abs Immat Gran (auto) 0.01 (0.00-0.30) K/uL Imm/Tot Granulo (auto) 0.1 % VBG pH 7.301 L (7.32-7.43) VBG pCO2 47 (40-50) mmHG VBG pO2 48.9 H (25-47) mmHG VBG HCO3 23 (21-28) mmol/L Sodium 142 (135-149) mmol/L Potassium 3.5 L (3.6-5.1) mmol/L Chloride 105 (96-114) mmol/L Carbon Dioxide 23 (20-32) mmol/L Anion Gap 14 (7-15) mEq/L BUN 12 (7-30) mg/dL Creatinine 0.9 (0.5-1.5) mg/dL Estimated Creat Clear 64.58 Estimated GFR 78 ml/min Glucose 78 (60-115) mg/dL Lactate 2.9 H (0.5-1.9) mmol/L Calcium 8.8 (8.4-10.6) mg/dL Magnesium 1.9 (1.5-2.6) mg/dL Total Bilirubin (0.1-1.5) mg/dL Direct Bilirubin (0.0-0.5) mg/dL AST (12-35) U/L ALT (4-35) U/L Alkaline Phosphatase (40-150) U/L NT-Pro-B Natriuret Pep pg/mL Total Protein (6.0-8.3) g/dL Albumin (3.3-5.0) g/dL HCG, Qual (Negative) Urine Color Yellow (Yellow) Urine Appearance Clear (Clear) Urine pH 5.5 (5.0-8.5) Ur Specific [place] 1.025 (1.000-1.030) Urine Protein 2+ A (Negative) Urine Glucose (UA) Negative (Negative) Urine Ketones 1+ A (Negative) Urine Blood 1+ A (Negative) Urine Nitrite Negative (Negative) Urine Bilirubin Negative (Negative) Urine Urobilinogen 0.2 (0.2-1.0) Ur Leukocyte Esterase Negative (Negative) Urine RBC 0-2 (0-2) Urine WBC 0-2 (0-5) Ur Squamous Epith Cells Few (None-Few) Amorphous Sediment Few A (None) Urine Bacteria Moderate A (None) Fine Granular Casts Few A (None) Salicylates (1.0-10) mg/dL Urine Opiates Screen Negative (Negative) Ur Oxycodone Screen Negative (Negative) Urine Methadone Screen Negative (Negative) Acetaminophen (10.0-30.0) ug/mL Ur Barbiturates Screen Negative (Negative) U Tricyclic Antidepress Negative (Negative) Ur Phencyclidine Scrn Negative (Negative) Ur Amphetamines Screen Negative (Negative) U Methamphetamines Scrn Negative (Negative) U Benzodiazepines Scrn Negative (Negative) Urine Cocaine Screen Negative (Negative) U Marijuana (THC) Screen Negative (Negative) Ur Drug Screen Comment See Note Ethyl Alcohol (0.01-0.03) % POC Troponin I 0.00 L (0.01-0.04) ng/ml 01/10/24 01/11/24 Range/Units 13:12 08:18 WBC (4.50-11.00) K/uL RBC (4.00-5.20) m/uL Hgb (12.0-16.0) gm/dL Hct (33.0-51.0) % MCV (80-100) fL MCH (26-34) pg MCHC (32-36) gm/dL RDW Coeff of Cally (11.5-15.5) % Plt Count (140-440) K/uL Neut % (Auto) (42.0-72.0) % Lymph % (Auto) (20-44) % [place] % (Auto) (0.0-11.0) % Eos % (Auto) (0.0-7.0) % Baso % (Auto) (0.0-3.0) % Neut # (Auto) (1.7-7.0) K/uL Lymph # (Auto) (0.90-2.90) K/uL [place] # (Auto) (0.00-0.90) K/UL Eos # (Auto) (0.00-0.50) K/uL Baso # (Auto) (0.00-0.30) K/uL Abs Immat Gran (auto) (0.00-0.30) K/uL Imm/Tot Granulo (auto) % VBG pH (7.32-7.43) VBG pCO2 (40-50) mmHG VBG pO2 (25-47) mmHG VBG HCO3 (21-28) mmol/L Sodium (135-149) mmol/L Potassium (3.6-5.1) mmol/L Chloride (96-114) mmol/L Carbon Dioxide (20-32) mmol/L Anion Gap (7-15) mEq/L BUN (7-30) mg/dL Creatinine (0.5-1.5) mg/dL Estimated Creat Clear Estimated GFR ml/min Glucose (60-115) mg/dL Lactate (0.5-1.9) mmol/L Calcium (8.4-10.6) mg/dL Magnesium Cancelled (1.5-2.6) mg/dL Total Bilirubin 0.6 (0.1-1.5) mg/dL Direct Bilirubin 0.4 (0.0-0.5) mg/dL AST 68 H (12-35) U/L ALT 30 (4-35) U/L Alkaline Phosphatase 71 (40-150) U/L NT-Pro-B Natriuret Pep < 20 pg/mL Total Protein 7.9 (6.0-8.3) g/dL Albumin 4.9 (3.3-5.0) g/dL HCG, Qual Negative (Negative) Urine Color (Yellow) Urine Appearance (Clear) Urine pH (5.0-8.5) Ur Specific [place] (1.000-1.030) Urine Protein (Negative) Urine Glucose (UA) (Negative) Urine Ketones (Negative) Urine Blood (Negative) Urine Nitrite (Negative) Urine Bilirubin (Negative) Urine Urobilinogen (0.2-1.0) Ur Leukocyte Esterase (Negative) Urine RBC (0-2) Urine WBC (0-5) Ur Squamous Epith Cells (None-Few) Amorphous Sediment (None) Urine Bacteria (None) Fine Granular Casts (None) Salicylates < 1.0 L (1.0-10) mg/dL Urine Opiates Screen (Negative) Ur Oxycodone Screen (Negative) Urine Methadone Screen (Negative) Acetaminophen < 10.0 L (10.0-30.0) ug/mL Ur Barbiturates Screen (Negative) U Tricyclic Antidepress (Negative) Ur Phencyclidine Scrn (Negative) Ur Amphetamines Screen (Negative) U Methamphetamines Scrn (Negative) U Benzodiazepines Scrn (Negative) Urine Cocaine Screen (Negative) U Marijuana (THC) Screen (Negative) Ur Drug Screen Comment Ethyl Alcohol 0.56 H* < 0.01 L (0.01-0.03) % POC Troponin I (0.01-0.04) ng/ml <Jl Crockett MD - Last Filed: 01/11/24 05:15> Lab Results 01/10/24 01/10/24 01/10/24 Range/Units 13:05 13:06 13:12 WBC 7.12 (4.50-11.00) K/uL RBC 5.35 H (4.00-5.20) m/uL Hgb 17.3 H (12.0-16.0) gm/dL Hct 51.3 H (33.0-51.0) % MCV 96 (80-100) fL MCH 32 (26-34) pg MCHC 34 (32-36) gm/dL RDW Coeff of Cally 12.6 (11.5-15.5) % Plt Count 314 (140-440) K/uL Neut % (Auto) 50.9 (42.0-72.0) % Lymph % (Auto) 43.5 (20-44) % [place] % (Auto) 4.5 (0.0-11.0) % Eos % (Auto) 0.4 (0.0-7.0) % Baso % (Auto) 0.6 (0.0-3.0) % Neut # (Auto) 3.62 (1.7-7.0) K/uL Lymph # (Auto) 3.10 H (0.90-2.90) K/uL [place] # (Auto) 0.30 (0.00-0.90) K/UL Eos # (Auto) 0.03 (0.00-0.50) K/uL Baso # (Auto) 0.04 (0.00-0.30) K/uL Abs Immat Gran (auto) 0.01 (0.00-0.30) K/uL Imm/Tot Granulo (auto) 0.1 % VBG pH 7.301 L (7.32-7.43) VBG pCO2 47 (40-50) mmHG VBG pO2 48.9 H (25-47) mmHG VBG HCO3 23 (21-28) mmol/L Sodium 142 (135-149) mmol/L Potassium 3.5 L (3.6-5.1) mmol/L Chloride 105 (96-114) mmol/L Carbon Dioxide 23 (20-32) mmol/L Anion Gap 14 (7-15) mEq/L BUN 12 (7-30) mg/dL Creatinine 0.9 (0.5-1.5) mg/dL Estimated Creat Clear 64.58 Estimated GFR 78 ml/min Glucose 78 (60-115) mg/dL Lactate 2.9 H (0.5-1.9) mmol/L Calcium 8.8 (8.4-10.6) mg/dL Magnesium 1.9 (1.5-2.6) mg/dL Total Bilirubin (0.1-1.5) mg/dL Direct Bilirubin (0.0-0.5) mg/dL AST (12-35) U/L ALT (4-35) U/L Alkaline Phosphatase (40-150) U/L NT-Pro-B Natriuret Pep pg/mL Total Protein (6.0-8.3) g/dL Albumin (3.3-5.0) g/dL HCG, Qual (Negative) Urine Color Yellow (Yellow) Urine Appearance Clear (Clear) Urine pH 5.5 (5.0-8.5) Ur Specific [place] 1.025 (1.000-1.030) Urine Protein 2+ A (Negative) Urine Glucose (UA) Negative (Negative) Urine Ketones 1+ A (Negative) Urine Blood 1+ A (Negative) Urine Nitrite Negative (Negative) Urine Bilirubin Negative (Negative) Urine Urobilinogen 0.2 (0.2-1.0) Ur Leukocyte Esterase Negative (Negative) Urine RBC 0-2 (0-2) Urine WBC 0-2 (0-5) Ur Squamous Epith Cells Few (None-Few) Amorphous Sediment Few A (None) Urine Bacteria Moderate A (None) Fine Granular Casts Few A (None) Salicylates (1.0-10) mg/dL Urine Opiates Screen Negative (Negative) Ur Oxycodone Screen Negative (Negative) Urine Methadone Screen Negative (Negative) Acetaminophen (10.0-30.0) ug/mL Ur Barbiturates Screen Negative (Negative) U Tricyclic Antidepress Negative (Negative) Ur Phencyclidine Scrn Negative (Negative) Ur Amphetamines Screen Negative (Negative) U Methamphetamines Scrn Negative (Negative) U Benzodiazepines Scrn Negative (Negative) Urine Cocaine Screen Negative (Negative) U Marijuana (THC) Screen Negative (Negative) Ur Drug Screen Comment See Note Ethyl Alcohol (0.01-0.03) % POC Troponin I 0.00 L (0.01-0.04) ng/ml 01/10/24 01/11/24 Range/Units 13:12 08:18 WBC (4.50-11.00) K/uL RBC (4.00-5.20) m/uL Hgb (12.0-16.0) gm/dL Hct (33.0-51.0) % MCV (80-100) fL MCH (26-34) pg MCHC (32-36) gm/dL RDW Coeff of Cally (11.5-15.5) % Plt Count (140-440) K/uL Neut % (Auto) (42.0-72.0) % Lymph % (Auto) (20-44) % [place] % (Auto) (0.0-11.0) % Eos % (Auto) (0.0-7.0) % Baso % (Auto) (0.0-3.0) % Neut # (Auto) (1.7-7.0) K/uL Lymph # (Auto) (0.90-2.90) K/uL [place] # (Auto) (0.00-0.90) K/UL Eos # (Auto) (0.00-0.50) K/uL Baso # (Auto) (0.00-0.30) K/uL Abs Immat Gran (auto) (0.00-0.30) K/uL Imm/Tot Granulo (auto) % VBG pH (7.32-7.43) VBG pCO2 (40-50) mmHG VBG pO2 (25-47) mmHG VBG HCO3 (21-28) mmol/L Sodium (135-149) mmol/L Potassium (3.6-5.1) mmol/L Chloride (96-114) mmol/L Carbon Dioxide (20-32) mmol/L Anion Gap (7-15) mEq/L BUN (7-30) mg/dL Creatinine (0.5-1.5) mg/dL Estimated Creat Clear Estimated GFR ml/min Glucose (60-115) mg/dL Lactate (0.5-1.9) mmol/L Calcium (8.4-10.6) mg/dL Magnesium Cancelled (1.5-2.6) mg/dL Total Bilirubin 0.6 (0.1-1.5) mg/dL Direct Bilirubin 0.4 (0.0-0.5) mg/dL AST 68 H (12-35) U/L ALT 30 (4-35) U/L Alkaline Phosphatase 71 (40-150) U/L NT-Pro-B Natriuret Pep < 20 pg/mL Total Protein 7.9 (6.0-8.3) g/dL Albumin 4.9 (3.3-5.0) g/dL HCG, Qual Negative (Negative) Urine Color (Yellow) Urine Appearance (Clear) Urine pH (5.0-8.5) Ur Specific [place] (1.000-1.030) Urine Protein (Negative) Urine Glucose (UA) (Negative) Urine Ketones (Negative) Urine Blood (Negative) Urine Nitrite (Negative) Urine Bilirubin (Negative) Urine Urobilinogen (0.2-1.0) Ur Leukocyte Esterase (Negative) Urine RBC (0-2) Urine WBC (0-5) Ur Squamous Epith Cells (None-Few) Amorphous Sediment (None) Urine Bacteria (None) Fine Granular Casts (None) Salicylates < 1.0 L (1.0-10) mg/dL Urine Opiates Screen (Negative) Ur Oxycodone Screen (Negative) Urine Methadone Screen (Negative) Acetaminophen < 10.0 L (10.0-30.0) ug/mL Ur Barbiturates Screen (Negative) U Tricyclic Antidepress (Negative) Ur Phencyclidine Scrn (Negative) Ur Amphetamines Screen (Negative) U Methamphetamines Scrn (Negative) U Benzodiazepines Scrn (Negative) Urine Cocaine Screen (Negative) U Marijuana (THC) Screen (Negative) Ur Drug Screen Comment Ethyl Alcohol 0.56 H* < 0.01 L (0.01-0.03) % POC Troponin I (0.01-0.04) ng/ml <Jesus Obregon MD - Last Filed: 01/11/24 11:58> Lab Results 01/10/24 01/10/24 01/10/24 Range/Units 13:05 13:06 13:12 WBC 7.12 (4.50-11.00) K/uL RBC 5.35 H (4.00-5.20) m/uL Hgb 17.3 H (12.0-16.0) gm/dL Hct 51.3 H (33.0-51.0) % MCV 96 (80-100) fL MCH 32 (26-34) pg MCHC 34 (32-36) gm/dL RDW Coeff of Cally 12.6 (11.5-15.5) % Plt Count 314 (140-440) K/uL Neut % (Auto) 50.9 (42.0-72.0) % Lymph % (Auto) 43.5 (20-44) % [place] % (Auto) 4.5 (0.0-11.0) % Eos % (Auto) 0.4 (0.0-7.0) % Baso % (Auto) 0.6 (0.0-3.0) % Neut # (Auto) 3.62 (1.7-7.0) K/uL Lymph # (Auto) 3.10 H (0.90-2.90) K/uL [place] # (Auto) 0.30 (0.00-0.90) K/UL Eos # (Auto) 0.03 (0.00-0.50) K/uL Baso # (Auto) 0.04 (0.00-0.30) K/uL Abs Immat Gran (auto) 0.01 (0.00-0.30) K/uL Imm/Tot Granulo (auto) 0.1 % VBG pH 7.301 L (7.32-7.43) VBG pCO2 47 (40-50) mmHG VBG pO2 48.9 H (25-47) mmHG VBG HCO3 23 (21-28) mmol/L Sodium 142 (135-149) mmol/L Potassium 3.5 L (3.6-5.1) mmol/L Chloride 105 (96-114) mmol/L Carbon Dioxide 23 (20-32) mmol/L Anion Gap 14 (7-15) mEq/L BUN 12 (7-30) mg/dL Creatinine 0.9 (0.5-1.5) mg/dL Estimated Creat Clear 64.58 Estimated GFR 78 ml/min Glucose 78 (60-115) mg/dL Lactate 2.9 H (0.5-1.9) mmol/L Calcium 8.8 (8.4-10.6) mg/dL Magnesium 1.9 (1.5-2.6) mg/dL Total Bilirubin (0.1-1.5) mg/dL Direct Bilirubin (0.0-0.5) mg/dL AST (12-35) U/L ALT (4-35) U/L Alkaline Phosphatase (40-150) U/L NT-Pro-B Natriuret Pep pg/mL Total Protein (6.0-8.3) g/dL Albumin (3.3-5.0) g/dL HCG, Qual (Negative) Urine Color Yellow (Yellow) Urine Appearance Clear (Clear) Urine pH 5.5 (5.0-8.5) Ur Specific [place] 1.025 (1.000-1.030) Urine Protein 2+ A (Negative) Urine Glucose (UA) Negative (Negative) Urine Ketones 1+ A (Negative) Urine Blood 1+ A (Negative) Urine Nitrite Negative (Negative) Urine Bilirubin Negative (Negative) Urine Urobilinogen 0.2 (0.2-1.0) Ur Leukocyte Esterase Negative (Negative) Urine RBC 0-2 (0-2) Urine WBC 0-2 (0-5) Ur Squamous Epith Cells Few (None-Few) Amorphous Sediment Few A (None) Urine Bacteria Moderate A (None) Fine Granular Casts Few A (None) Salicylates (1.0-10) mg/dL Urine Opiates Screen Negative (Negative) Ur Oxycodone Screen Negative (Negative) Urine Methadone Screen Negative (Negative) Acetaminophen (10.0-30.0) ug/mL Ur Barbiturates Screen Negative (Negative) U Tricyclic Antidepress Negative (Negative) Ur Phencyclidine Scrn Negative (Negative) Ur Amphetamines Screen Negative (Negative) U Methamphetamines Scrn Negative (Negative) U Benzodiazepines Scrn Negative (Negative) Urine Cocaine Screen Negative (Negative) U Marijuana (THC) Screen Negative (Negative) Ur Drug Screen Comment See Note Ethyl Alcohol (0.01-0.03) % POC Troponin I 0.00 L (0.01-0.04) ng/ml 01/10/24 01/11/24 Range/Units 13:12 08:18 WBC (4.50-11.00) K/uL RBC (4.00-5.20) m/uL Hgb (12.0-16.0) gm/dL Hct (33.0-51.0) % MCV (80-100) fL MCH (26-34) pg MCHC (32-36) gm/dL RDW Coeff of Cally (11.5-15.5) % Plt Count (140-440) K/uL Neut % (Auto) (42.0-72.0) % Lymph % (Auto) (20-44) % [place] % (Auto) (0.0-11.0) % Eos % (Auto) (0.0-7.0) % Baso % (Auto) (0.0-3.0) % Neut # (Auto) (1.7-7.0) K/uL Lymph # (Auto) (0.90-2.90) K/uL [place] # (Auto) (0.00-0.90) K/UL Eos # (Auto) (0.00-0.50) K/uL Baso # (Auto) (0.00-0.30) K/uL Abs Immat Gran (auto) (0.00-0.30) K/uL Imm/Tot Granulo (auto) % VBG pH (7.32-7.43) VBG pCO2 (40-50) mmHG VBG pO2 (25-47) mmHG VBG HCO3 (21-28) mmol/L Sodium (135-149) mmol/L Potassium (3.6-5.1) mmol/L Chloride (96-114) mmol/L Carbon Dioxide (20-32) mmol/L Anion Gap (7-15) mEq/L BUN (7-30) mg/dL Creatinine (0.5-1.5) mg/dL Estimated Creat Clear Estimated GFR ml/min Glucose (60-115) mg/dL Lactate (0.5-1.9) mmol/L Calcium (8.4-10.6) mg/dL Magnesium Cancelled (1.5-2.6) mg/dL Total Bilirubin 0.6 (0.1-1.5) mg/dL Direct Bilirubin 0.4 (0.0-0.5) mg/dL AST 68 H (12-35) U/L ALT 30 (4-35) U/L Alkaline Phosphatase 71 (40-150) U/L NT-Pro-B Natriuret Pep < 20 pg/mL Total Protein 7.9 (6.0-8.3) g/dL Albumin 4.9 (3.3-5.0) g/dL HCG, Qual Negative (Negative) Urine Color (Yellow) Urine Appearance (Clear) Urine pH (5.0-8.5) Ur Specific [place] (1.000-1.030) Urine Protein (Negative) Urine Glucose (UA) (Negative) Urine Ketones (Negative) Urine Blood (Negative) Urine Nitrite (Negative) Urine Bilirubin (Negative) Urine Urobilinogen (0.2-1.0) Ur Leukocyte Esterase (Negative) Urine RBC (0-2) Urine WBC (0-5) Ur Squamous Epith Cells (None-Few) Amorphous Sediment (None) Urine Bacteria (None) Fine Granular Casts (None) Salicylates < 1.0 L (1.0-10) mg/dL Urine Opiates Screen (Negative) Ur Oxycodone Screen (Negative) Urine Methadone Screen (Negative) Acetaminophen < 10.0 L (10.0-30.0) ug/mL Ur Barbiturates Screen (Negative) U Tricyclic Antidepress (Negative) Ur Phencyclidine Scrn (Negative) Ur Amphetamines Screen (Negative) U Methamphetamines Scrn (Negative) U Benzodiazepines Scrn (Negative) Urine Cocaine Screen (Negative) U Marijuana (THC) Screen (Negative) Ur Drug Screen Comment Ethyl Alcohol 0.56 H* < 0.01 L (0.01-0.03) % POC Troponin I (0.01-0.04) ng/ml <Jl Martinez MD - Last Filed: 01/15/24 11:23> Discharge Plan Discharge Clinical Impression: History of alcohol abuse, Drug overdose Depression Qualifiers: Depression Type: major depressive disorder Major depression recurrence: recurrent Active/Remission status: currently active Major depression episode severity: moderate Qualified Code(s): F33.1 - Major depressive disorder, recurrent, moderate <Jesse Chavarria MD - Last Filed: 01/10/24 15:56> Patient Disposition: Xfer Other <Jesse Chavarria MD - Last Filed: 01/10/24 15:56> Additional Instructions: After cleared medically, needs placement in a mental health institution for suicidal overdose attempt <Jesse Chavarria MD - Last Filed: 01/10/24 15:56> Prescriptions: No Action escitalopram oxalate 10 mg tablet 10 mg PO QDAY Qty: 30 2RF <Jesse Chavarria MD - Last Filed: 01/10/24 15:56> Stand Alone Forms: MyHealth Info Instructions <Jesse Chavarria MD - Last Filed: 01/10/24 15:56>
[2024-01-10] MEDS: NALOXONE 1 MG/ML SYRINGE IV (13:14)
[2024-01-10 13:22] LABS: HCO3 VBG 23 mmol/L (21-28); PCO2 VBG 47 mmHG (40-50); PO2 VBG 48.9 mmHG (25-47); pH VBG 7.301 (7.32-7.43)
[2024-01-10 13:24] LABS: Basophils Absolute Auto 0.04 K/uL (0.00-0.30); Basophils Percent Auto 0.6 % (0.0-3.0); Eosinophils Absolute Auto 0.03 K/uL (0.00-0.50); Eosinophils Percent Auto 0.4 % (0.0-7.0); Hematocrit 51.3 % (33.0-51.0); Hemoglobin* 17.3 gm/dL (12.0-16.0); Immature Granulocytes Abs Auto 0.01 K/uL (0.00-0.30); Immature Granulocytes Pct Auto 0.1 %; Lactate* 2.9 mmol/L (0.5-1.9); Lymphocytes Percent Auto 43.5 % (20-44); Mean Corpuscular HGB Conc 34 gm/dL (32-36); Mean Corpuscular Hemoglobin 32 pg (26-34); Mean Corpuscular Volume 96 fL (80-100); Monocytes Percent Auto 4.5 % (0.0-11.0); Neutrophils Absolute Auto 3.62 K/uL (1.7-7.0); Neutrophils Percent Auto 50.9 % (42.0-72.0); Platelet Count* 314 K/uL (140-440); RDW Coefficient of Variation % 12.6 % (11.5-15.5); Red Blood Count 5.35 m/uL (4.00-5.20); White Blood Count* 7.12 K/uL (4.50-11.00)
[2024-01-10 13:26] LABS: Slide Review Reflex No
[2024-01-10 13:38] LABS: Albumin* 4.9 g/dL (3.3-5.0); Chloride* 105 mmol/L (96-114)
[2024-01-10 13:39] LABS: Potassium* 3.5 mmol/L (3.6-5.1); Sodium* 142 mmol/L (135-149)
[2024-01-10 13:41] LABS: Anion Gap 14 mEq/L (7-15); Bilirubin Direct* 0.4 mg/dL (0.0-0.5); Bilirubin Total* 0.6 mg/dL (0.1-1.5); Carbon Dioxide* 23 mmol/L (20-32); Creatinine* 0.9 mg/dL (0.5-1.5); Est. Creatinine Clearance* 64.58; Estimated Glomerular Filt Rate 78 ml/min; Total Protein* 7.9 g/dL (6.0-8.3)
[2024-01-10] MEDS: THIAMINE 250 MG in 0.9 % SODIUM CHLORIDE 100 ml 100 ML 102.5 MG IVPB (13:41)
[2024-01-10 13:42] LABS: Alanine Aminotransferase* 30 U/L (4-35); Alkaline Phosphatase* 71 U/L (40-150); Aspartate Amino Transferase* 68 U/L (12-35); Blood Urea Nitrogen* 12 mg/dL (7-30); Calcium* 8.8 mg/dL (8.4-10.6); Glucose* 78 mg/dL (60-115); Magnesium* 1.9 mg/dL (1.5-2.6)
[2024-01-10 13:47] LABS: Acetaminophen* < 10.0 ug/mL (10.0-30.0); Salicylate* < 1.0 mg/dL (1.0-10)
[2024-01-10] MEDS: 0.9 % SODIUM CHLORIDE 1000 ml 1,000 ML 6000 ML IV (13:47)
[2024-01-10 13:53] LABS: Amphetamine Screen Urine Negative (Negative); Barbiturate Screen Urine Negative (Negative); Benzodiazepines Screen Urine Negative (Negative); Cannabinoid Screen Urine Negative (Negative); Cocaine Screen Urine Negative (Negative); Methadone Screen Urine Negative (Negative); Methamphetamines Screen Urine Negative (Negative); Opiate Screen Urine Negative (Negative); Oxycodone Screen Urine Negative (Negative); Phencyclidine Screen Urine Negative (Negative); Tricyclic Antidepressant Urine Negative (Negative)
[2024-01-10 13:55] LABS: Appearance Urine Clear (Clear); Bilirubin Urine Negative (Negative); Blood Urine 1+ (Negative); Color Urine Yellow (Yellow); Glucose Urine Negative (Negative); Ketones Urine 1+ (Negative); Leukocyte Esterase Urine Negative (Negative); Nitrite Urine Negative (Negative); Protein Urine 2+ (Negative); Specific Gravity Urine 1.025 (1.000-1.030); Urobilinogen Urine 0.2 (0.2-1.0); pH Urine 5.5 (5.0-8.5)
[2024-01-10 14:04] LABS: Ethanol* 0.56 % (0.01-0.03)
[2024-01-10 14:06] LABS: NT Pro B Type NatriureticPept* < 20 pg/mL
[2024-01-10 14:17] LABS: Bacteria Urine Moderate; RBC Urine 0-2 (0-2); Squamous Epithelial Cell Urine Few (None-Few); WBC Urine 0-2 (0-5)
[2024-01-10 14:18] LABS: Amorphous Sediment Urine Few; Fine Granular Casts Urine Few
[2024-01-10 15:04] LABS: HCG Qualitative Serum* Negative (Negative)
[2024-01-10] MEDS: LORazepam 0.5 MG TABLET PO ×2 (18:45→21:06)
[2024-01-10] MEDS: MELATONIN 3 MG TABLET PO (23:05)
[2024-01-11] VITALS (34 sets, daily range): BP systolic 170–173; BP diastolic 117–124; PULSE 78–117; RESP 18–20; TEMP 36.6; O2SAT 89–99
[2024-01-11] MEDS: LORazepam 1 MG TABLET PO (00:21)
[2024-01-11 08:41] LABS: Ethanol* < 0.01 % (0.01-0.03)
--- NOTE | 2024-01-11 12:33 | PC.SOCIAL ---
Discharge planning: Per MD order for in-pt mental health placement, checked the [place] mental health bed availability board and called the following facilities regarding placement: 1. [facility] facilities - [phone] 2. [facility] [phone] 3. [facility] - [phone] 4. [facility] [phone] - have beds available, please fax information for evaluation for admit to fax#[phone]. Received call from [facility] CPS worker, Natali Denton, , who states there is an open CPS case on pt's 17 year old child, who uses he/him pronouns and goes by Link. Natali requested a call when discharge plan is determined.
[2024-01-11] MEDS: OLANZapine 5 MG TAB.RAPDIS 10 MG PO (19:23)
--- NOTE | 2024-01-12 01:57 | ED.NURSE ---
Pt up to the bathrrom, this nurse performed pysch assessments on pt at this time. Pt cooperative and pleasant. Pt has no questions for this nurse at this time. Pt went back to sleep.
[2024-01-12 10:00] VITALS: BP 134/78; PULSE 90; RESP 18; TEMP 36.3; O2SAT 100
[2024-01-12 10:45] VITALS: BP 134/78; PULSE 90; RESP 18; TEMP 36.3; O2SAT 100
--- NOTE | 2024-01-12 12:10 | PC.SOCIAL ---
Addendum entered by ITALIA Dean 01/12/24 15:43: Social work: Prior to acceptance at [facility], faxed [place] letter in support of commitment to [facility] and [facility]. Called CPS worker, Natali Denton, at her request and informed her of discharge plan. Called [facility] worker, Chloe Sanchez, who is aware of MD letter in support of commitment and when the current 72 hour hold expires. Addendum entered by ITALIA Dean 01/12/24 15:35: Social work: Received call from Kristofer at [facility] intake [phone], stating they are accepting pt for admit any time. Accepting MD is Dr. Ramos to [address] [place]. RN to arrange transport and call for nurse to nurse to [phone] and follow prompts to the [address] [place] nursing station. Addendum entered by ITALIA Dean 01/12/24 13:59: Social work: Received call from [facility] stating they do not have an appropriate bed available. Received call from Kristofer at [facility] stating they can only accept pt today if hospital files for commitment with the [facility] prior to sending pt. embroidery worker to follow up as needed. Original Note: Social work: Checked the [facility] Bed Availability Board online and called all facilities appropriate for this patient in regarding bed availability. 1. [facility], no bed available today. 2. [facility] - [phone] no bed available through the weekend. 3. [facility] - [phone] no beds available today. 4. [facility] - [phone], declined pt yesterday due to high alcohol lab and will not reassess. 5. [facility] - [phone], faxed information for evaluation for [place] facility to [phone]. 6. [facility] - [phone], to fax requested information for evaluation for admit to [phone]. 7. [facility] - [phone], faxed requested information for evaluation for admit to [phone]. The only bed [facility] the [facility] [place] that will evaluate pt are at [facility], [facility] in [place] and [facility] in [place]. Facilities that indicated no beds available today can be called tomorrow for availability if pt is not yet placed by tomorrow. embroidery worker to follow up as needed.
[2024-01-12 19:10] VITALS: BP 176/120; PULSE 93; RESP 16; O2SAT 96
[2024-01-12] MEDS: MELATONIN 3 MG TABLET PO (21:41)
[2024-01-12] MEDS: OLANZapine 5 MG TAB.RAPDIS 10 MG PO (21:42)
[2024-01-12] MEDS: LORazepam 1 MG TABLET PO (21:42)
[2024-01-13 05:30] VITALS: BP 158/115; PULSE 66; RESP 14; TEMP 36.3; O2SAT 98
== END 2024-01-13 07:29 | disposition other institution (70) ==
PROVIDERS: Family Medicine; Emergency Provider Student in an Organized Health Care Education/Training Program; PCP Family Medicine
DX: T43.224A Poisoning by selective serotonin reuptake inhibitors, undetermined, initial encounter (principal); F32.A Depression, unspecified; F10.129 Alcohol abuse with intoxication, unspecified; Z51.81 Encounter for therapeutic drug level monitoring
CPT/HCPCS: 36415; 70450; 71045; 80048; 80076; 80143; 80179; 80306; 81001; 82077; 82803; 83605; 83735; 83880; 84484; 84703; 85025; 87086; 93005; 94761; 96365; 96366; 96375; 99283; 99285; A9270; J2310; J3411; J7030

== ENCOUNTER 2024-01-13 07:10 | Outpatient (CLI) | payer MEDICAID, SELFPAY | END 2024-01-13 07:11 | disposition home or self-care (01) | LOC: AMB 01-25 01:44 | PROVIDERS: PCP Family Medicine; Visit Provider Emergency Medicine Emergency Medical Services | DX: F33.1 Major depressive disorder, recurrent, moderate (principal) | CPT/HCPCS: A0425; A0428 ==

== ENCOUNTER 2024-06-24 22:13 | Outpatient (CLI) | payer BC, SELFPAY | END 2024-06-24 22:14 | disposition home or self-care (01) | LOC: AMB 06-26 10:11 | PROVIDERS: PCP Family Medicine; Visit Provider Emergency Medicine | DX: M25.571 Pain in right ankle and joints of right foot (principal) | CPT/HCPCS: A0425; A0427 ==

== ENCOUNTER 2024-06-24 22:53 | Emergency (ER) | payer BC, SELFPAY ==
--- OUTSIDE RECORDS SUMMARY | 2024-06-24 22:55 | XMS_ITS | Clinical Summary ---
Author Organization [employer] [facility] Address [address] [place] [address] Care Team Providers Care Trial Consultant Name Role Phone Jennifer Benitez MD Primary Care Prov ider Allergies No known active allergies Medications * This document contains information received from the source organization and may not represent a complete record from that organization. [employer] Take by mouth. Active ibuprofen (ADVIL; MOTRIN) 200 mg tabletIndicatio ns:Metrorrhagia Take 1-3 tablets by mouth every 6 hours if needed for Pain. 100 tablet 04/03/2019 Active losartan (COZAAR) 50 mg tabletIndicatio ns:HTN (hypertension) Take 0.5 Tablet (25 mg) by mouth once daily for 1 week then increase to 1 tablets (50mg) daily. 30 Tablet 2 03/25/2024 Active FLUoxetine (PROZAC) 10 mg capsuleIndicati ons:Anxiety and depression Take 1 Capsule (10 mg) by mouth once daily for 1 week then increase to 2 capsules (20mg) by mouth once daily 60 Capsule 1 03/25/2024 Active hydrOXYzine pamoate (VISTARIL) 25 mg capsuleIndicati ons:Anxiety Take 1-2 Capsules (25-50 mg) by mouth every 6 hours if needed for Anxiety. 60 Capsule 1 03/25/2024 Active oxyCODONE (ROXICODONE) 5 mg immediate release tablet Take 5 mg by mouth every 4 hours if needed for Pain. 05/27/2024 Active Active Problems Problem Noted Date Diagnosed Date Anxiety and depression 04/10/2024 HTN (hypertension) 04/10/2024 Intramural leiomyoma of uterus 04/03/2019 Resolved Problems Problem Noted Date Diagnosed Date Resolved Date Metrorrhagia 04/03/2019 04/10/2024 Encounters Date Type Department Care Team Description 05/28/2024 1:15 PM CONE OPERATOR Office Visit [facility] [address] [place] [address] Manjeet Atwood MD Preoperative Exam (DOS: 06/03/2024, right ankle, Dr. Brooks, [facility]) 05/27/2024 Travel 04/10/2024 3:15 PM CONE OPERATOR Office Visit [facility] [address] [place] [address] Abbie Sanders, DO Follow Up (Has started losartan, has not yet started prozac, will start today.) 04/10/2024 Travel 04/10/2024 Telephone [facility] [address] [place] [address] Jennifer Benitez MD Appointment 03/25/2024 3:30 PM CONE OPERATOR Office Visit [facility] [address] [place] [address] Jennifer Benitez MD Establish Care; Medication Management (anxiety and depression ) 03/25/2024 Travel from Last 3 Months Immunizations Name Administration Dates Next Due Influenza, IIV3 (Age >=3 years) 03/17/2003 Tdap 12/13/2021 Family History Medical History Relation Name Comments Asthma Maternal Grandmother Leona Heart Disease Maternal Grandmother Leona Heart Attack at Young Age Hypertension Maternal Grandmother Leona Stroke Maternal Grandmother Leona Hypertension Mother Janine Anesthesia Problem No Family History Blood Disease No Family History Relation Name Status Comments Brother Rubin Alive Father Manjeet Alive Adopted me when I was 1 Maternal Grandmother Leona Mother Janine Alive Paternal Grandmother Social History Tobacco Use Types Packs/Day Years Used Date Smoking Tobacco: Former Cigarettes Smokeless Tobacco: Never Tobacco Cessation:Counseling Given: No Comments:Quit at age 18 Alcohol Use Standard Drinks/Week Comments Not Currently 0 (1 standard drink = 0.6 oz pure alcohol) last use 03/05/2024, 4 times a weeks about 3 drinks (vodka), [facility] outpatient PHQ-2 Answer Date Recorded PHQ-2 TOTAL SCORE 3 03/25/2024 Social Connections Answer Date Recorded Do you often feel lonely or isolated from those around you? 0 03/25/2024 Financial Resource Strain Answer Date R ecorded Difficulty of Paying Living Expenses 3 03/25/2024 Difficulty of Paying Living Expenses Not on file 03/25/2024 Food Insecurity Answer Date Recorded Do you worry your food will run out before you are able to buy more? 1 03/25/2024 Transportation Needs Answer Date Record ed Does lack of transportation keep you from medica l appointments? 1 03/25/2024 Does lack of transportation keep you from work, meetings or getting things that you need? 1 03/25/2024 Housing Stability Answer Date Recorded What is your housing situation today? 1 03/25/2024 Utilities Answer Date Recorded Do you have trouble paying f or utilities (for example, heat, electricity, water, phone)? 1 03/25/2024 Comments No Sex and Gender Information Value Date Recorded Sex Assigned at Not on file Legal Sex Female 6:20 AM CONE OPERATOR Gender Identity Not on file Sexual Orientation Not on file Occupation Industry Job Start Date Job End Date Not on file Not on file Not on file Not on file Not on file Not on file Not on file Not on file Obstetrics History Para Term AB IAB SAB Ectopic Multiple Livin g Live Births 2 2 2 Date Outcome GA Total Labor Labor/2nd/3rd Weight Sex Type Anes PTL [place] A1 A5 Name Clin Para Comments:forceps Para Comments:forceps Last Filed Vital Signs Vital Sign Reading Time Taken Comments Blood Pressure 146/80 05/28/2024 1:39 PM CONE OPERATOR Pulse 81 05/28/2024 1:25 PM CONE OPERATOR Temperature 35.7 C (96.3 F) 11/19/2022 8:14 PM CDT Respiratory Rate 18 11/19/2022 8:14 PM CDT Oxygen Saturation 96% 05/28/2024 1:25 PM CONE OPERATOR Inhaled Oxygen Concentration - - Weight 63 kg (139 lb) 05/28/2024 1:25 PM CONE OPERATOR Height 157.5 cm (5' 2) 05/28/2024 1:25 PM CONE OPERATOR Body Mass Index 25.42 05/28/2024 1:25 PM CONE OPERATOR Plan of Treatment Health Maintenance Due Date Last Done Comments HIV for age 15-65 1988 Pneumococcal series for age 50+ (1 of 2 - PCV) 1992 Colonoscopy through age 75 2018 Mammogram for age 45-75 2018 Zoster (shingles) series for age 50+ (1 of 2) 2023 COVID-19 vaccine series ( - season) 2023 Influenza for age 50-64 12/31/2023 03/17/2003 Depression screening for age 12+ 03/25/2025 03/25/2024, 03/18/2024, 03/15/2024, Additional history exists BMI (ht and wt on same day) for age 18+ 05/28/2025 05/28/2024, 06/11/2019, 07/01/2016, Additional history exists Lipids for age 45-75 04/10/2029 04/10/2024 Tetanus booster 12/14/2031 12/13/2021 Tdap Completed 12/13/2021 Hepatitis C screening for ag e 18-79 Completed 04/10/2024 Procedures Procedure Name Priority Date/Time Associated Diagnosis Comments COMP METABOLIC PANEL Routine 04/10/2024 3:47 PM CONE OPERATOR HTN (hypertension) CBC WITH AUTO DIFFERENTIAL Routine 04/10/2024 3:47 PM CONE OPERATOR HTN (hypertension) TSH WITH REFLEX Routine 04/10/2024 3:47 PM CONE OPERATOR Elevated TSH LIPID PANEL W REFLEX MEASURED LDL Routine 04/10/2024 3:47 PM CONE OPERATOR Screening cholesterol level ANTI HCV Routine 04/10/2024 3:47 PM CONE OPERATOR Encounter for HCV screening test for low risk patient HIV-1 RNA, REAL TIME PCR (NON-GRAPH) Routine 04/10/2024 3:47 PM CONE OPERATOR Encounter for screening for HIV HEMOGLOBIN A1C MONITORING (POCT) Routine 04/10/2024 3:46 PM CONE OPERATOR Screening for diabetes mellitus from Last 3 Months Results * HIV-1 RNA, REAL TIME PCR (NON-GRAPH) [facility] (04/10/2024 3:47 PM CONE OPERATOR) Pathologist [facility] HIV 1 RNA, QN PCR NOT DETECTED NOT DETECTED copies/mL [facility] LOG10 HIV 1 RNA, QN PCR NOT DETECTED NOT DETECTED Log copies/mL [facility] Comment: This test was performed using Real-Time Polymerase Chain Reaction. Reportable Range: 20 copies/mL to 10,000,000 copies/mL (1.30 log copies/mL to 7.00 log copies/mL). Blood BLOOD SPECIMEN / Unknown 04/10/2024 3:47 PM CONE OPERATOR 04/10/2024 3:47 PM CONE OPERATOR Jennifer Benitez MD LABORATORY Fi nal Result servtag [facility] [address] [place] [address], [facility] [address] [place] [address] * TSH WITH REFLEX (04/10/2024 3:47 PM CONE OPERATOR) Pathologist [facility] TSH W/REFLEX TO FT4 3.46 mIU/L [facility] Comment: Reference Range > or = 20 Years 0.40-4.50 Ranges First trimester 0.26-2.66 Second trimester 0.55-2.73 Third trimester 0.43-2.91 Blood BLOOD SPECIMEN / Unknown 04/10/2024 3:47 PM CONE OPERATOR 04/10/2024 3:47 PM CONE OPERATOR Jennifer Benitez MD CHEMISTRY Fi nal Result servtag [facility] [address] [place] [address], [facility] [address] [place] [address] * (ABNORMAL) LIPID PANEL W REFLEX MEASURED LDL (04/10/2024 3:47 PM CONE OPERATOR) Pathologist [facility] CHOLESTEROL, TOTAL 243(H) <200 mg/dL [facility] HDL CHOLESTEROL 97 > OR = 50 mg/dL [facility] TRIGLYCERIDES 115 <150 mg/dL [facility] LDL-CHOLESTEROL 123(H) mg/dL (calc) [facility] Comment: Reference range: <100 Desirable range <100 mg/dL for primary prevention; <70 mg/dL for patients with CHD or diabetic patients with > or = 2 CHD risk factors. LDL-C is now calculated using the Victor Hugo calculation, which is a validated novel method providing better accuracy than the Friedewald equation in the estimation of LDL-C. Kushal SS et al. SARINA. 2013;310(51): 7181-2828 (http://education.[employer]Building/faq/DJS914) CHOL/HDLC RATIO 2.5 <5.0 (calc) [facility] NON HDL CHOLESTEROL 146(H) <130 mg/dL (calc) [facility] Comment: For patients with diabetes plus 1 major ASCVD risk factor, treating to a non-HDL-C goal of <100 mg/dL (LDL-C of <70 mg/dL) is considered a therapeutic option. Blood BLOOD SPECIMEN / Unknown 04/10/2024 3:47 PM CONE OPERATOR 04/10/2024 3:47 PM CONE OPERATOR Jennifer Benitez MD CHEMISTRY Fi nal Result servtag [facility] [address] [place] [address], [place] [phone] [facility] [address] [place] [address] * ANTI HCV (04/10/2024 3:47 PM CONE OPERATOR) Pathologist [facility] HEPATITIS C ANTIBODY NON-REACTI VE NON-REACT DULCE [facility]W [facility] Comment: HCV antibody was non-reactive. There is no laboratory evidence of HCV infection. In most cases, no further action is required. However, if recent HCV exposure is suspected, a test for HCV RNA (test code 44657) is suggested. For additional information please refer to http://education.[employer]/faq/EHW80k8 (This link is being provided for informational/ educational purposes only.) Blood BLOOD SPECIMEN / Unknown 04/10/2024 3:47 PM CONE OPERATOR 04/10/2024 3:47 PM CONE OPERATOR Jennifer Benitez MD SEND OUTS Fi nal Result servtag [facility] [address] [place] [address], [facility] [address] [place] [address] * (ABNORMAL) CBC AND DIFFERENTIAL (04/10/2024 3:47 PM CONE OPERATOR) Pathologist [facility] WHITE BLOOD CELL COUNT 7.8 3.8 - 10.8 Thousand/u L [facility] RED BLOOD CELL COUNT 4.68 3.80 - 5.10 Million/uL [facility] HEMOGLOBIN 15.8(H) 11.7 - 15.5 g/dL [facility] HEMATOCRIT 45.8(H) 35.0 - 45.0 % [facility] MCV 97.9 80.0 - 100.0 fL [facility] MCH 33.8(H) 27.0 - 33.0 pg [facility] MCHC 34.5 32.0 - 36.0 g/dL [facility] Comment: For adults, a slight decrease in the calculated MCHC value (in the range of 30 to 32 g/dL) is most likely not clinically significant; however, it should be interpreted with caution in correlation with other red cell parameters and the patient's clinical condition. RDW 12.3 11.0 - 15.0 % [facility] PLATELET COUNT 306 140 - 400 Thousand/u L [facility] MPV 11.7 7.5 - 12.5 fL [facility] ABSOLUTE NEUTROPHILS 5,741 1,500 - 7,800 cells/uL [facility] ABSOLUTE LYMPHOCYTES 1,388 850 - 3,900 cells/uL [facility] ABSOLUTE MONOCYTES 577 200 - 950 cells/uL [facility] ABSOLUTE EOSINOPHILS 23 15 - 500 cells/uL [facility] ABSOLUTE BASOPHILS 70 0 - 200 cells/uL [facility] NEUTROPHILS 73.6 % [facility] LYMPHOCYTES 17.8 % [facility] MONOCYTES 7.4 % [facility] EOSINOPHILS 0.3 % [facility] BASOPHILS 0.9 % [facility] Blood BLOOD SPECIMEN / Unknown 04/10/2024 3:47 PM CONE OPERATOR 04/10/2024 3:47 PM CONE OPERATOR Jennifer Benitez MD HEMATOLOGY Fi nal Result servtag [facility] [address] [place] [address], [facility] [address] [place] [address] * (ABNORMAL) COMP METABOLIC PANEL (04/10/2024 3:47 PM CONE OPERATOR) [facility] GLUCOSE 100(H) 65 - 99 mg/dL [facility] Comment: Fasting reference interval For someone without known diabetes, a glucose value between 100 and 125 mg/dL is consistent with prediabetes and should be confirmed with a follow-up test. UREA NITROGEN (BUN) 7 7 - 25 mg/dL [facility] CREATININE 0.79 0.50 - 1.03 mg/dL [facility] EGFR 91 > OR = 60 mL/min/1. 73m2 [facility] BUN/CREATININE RATIO SEE NOTE: 6 - 22 (calc) [facility] Comment: Not Reported: BUN and Creatinine are within reference range. SODIUM 135 135 - 146 mmol/L [facility] POTASSIUM 3.7 3.5 - 5.3 mmol/L [facility] CHLORIDE 99 98 - 110 mmol/L [facility] CARBON DIOXIDE 26 20 - 32 mmol/L [facility] CALCIUM 9.8 8.6 - 10.4 mg/dL [facility] PROTEIN, TOTAL 7.9 6.1 - 8.1 g/dL [facility] ALBUMIN 5.0 3.6 - 5.1 g/dL [facility] GLOBULIN 2.9 1.9 - 3.7 g/dL (calc) [facility] ALBUMIN/GLOBULIN RATIO 1.7 1.0 - 2.5 (calc) [facility] BILIRUBIN, TOTAL 1.1 0.2 - 1.2 mg/dL [facility] ALKALINE PHOSPHATASE 68 37 - 153 U/L [facility] AST 28 10 - 35 U/L [facility] ALT 21 6 - 29 U/L [facility] Blood BLOOD SPECIMEN / Unknown 04/10/2024 3:47 PM CONE OPERATOR 04/10/2024 3:47 PM CONE OPERATOR Jennifer Benitez MD CHEMISTRY Fi nal Result servtag [facility] [address] [place] [address], [facility] [address] [place] [address] * HEMOGLOBIN A1C MONITORING (POCT) (04/10/2024 3:46 PM CONE OPERATOR) POC HEMOGLOBIN A1C 4.8 <6.0 % OF TOTAL HGB [facility] Comment: Any point of care results exhibiting inconsistency with the patient's clinical status should be repeated using a different testing method. Blood BLOOD SPECIMEN / Unknown 04/10/2024 3:46 PM CONE OPERATOR 04/10/2024 3:46 PM CONE OPERATOR Jennifer Benitez MD CHEMISTRY Fi nal Result [facility] [address] [place] [address], [place] [phone] [facility] [address] [place] [address] from Last 3 Months Insurance [id number] [facility] [id number] [employer] [facility] CMS Advance Directives * Full Code (Latest Code Status on File) Date Activated Date Inactivated Comments 04/03/2019 6:13 AM 04/03/2019 2:55 PM Care Teams Trial Consultant Relationship Specialty Start Date End Date Jennifer Benitez MD [address] [address] PCP - General Family Practice 03/25/24
--- OUTSIDE RECORDS SUMMARY | 2024-06-24 22:55 | XMS_ITS | Encounter Summary ---
Author Organization [facility] Address [address] [address] Phone Care Team Providers Care Watermelon Inspector Name Role Phone Elsewhere, Pcp Primary Care Provider Unavailabl e Encounter Details Date Type Department Care Team (Latest Contact Info) Description 05/25/2024 Travel Social History Tobacco Use Types Packs/Day Years Used Date Smoking Tobacco: Never Assessed EH IP Custom IPV Answer Date Recorded Do you feel UNSAFE in any of your personal relationships with your family members or any other acquaintances? No 2024 Comments Unknown Sex and Gender Information Value Date Recorded Sex Assigned at Not on file Legal Sex Female 1:53 PM THREAD TRIMMER Gender Identity Not on file Sexual Orientation Not on file documented as of this encounter Functional Status * Patient's Vision Adequate to Safely Complete Daily Activities Answer Date of Assessment Author Yes 05/25/2024 2:10 PM THREAD TRIMMER Haritha Garzon RN * Patient's Memory Adequate to Safely Complete Daily Activities Answer Date of Assessment Author Yes 05/25/2024 2:10 PM THREAD TRIMMER Haritha Garzon RN documented as of this encounter Mental Status * Patient's Judgment Adequate to Safely Complete Daily Activities Answer Entry Date Author Yes 05/25/2024 2:10 PM Haritha Cabrera RN documented in this encounter Plan of Treatment Not on file documented as of this encounter Visit Diagnoses Not on filedocumented in this encounter Care Teams Watermelon Inspector Relationship Specialty Start Date End Date Elsewhere, Pcp PCP - General 05/25/24 documented as of this encounter
--- OUTSIDE RECORDS SUMMARY | 2024-06-24 22:55 | XMS_ITS | Clinical Summary ---
Author Organization [facility] Address [address] [place] [address] Care Team Providers Care Pharmacy Picking Tech Name Role Phone Roman Patten MD Primary Care Provider [phone] Source Comments You are receiving this document as you are listed as the primary care provider,follow-up provider, or the patient has been referred to you for consultation.This is in compliance with the Medicare and[facility] EHR Incentive Program,which states Providers who transition their patient to another setting of careor provider of care or refers their patient to another provider of care shouldprovide summary care record for each transition of care or referral. [facility] Allergies No known active allergies Medications hydrOXYzine pamoate (VISTARIL) 25 MG capsule Take 25-50 mg by mouth two times daily as needed. 05/26/2019 Active FLUoxetine (PROZAC) 10 MG capsuleIndicati ons:Generalized anxiety disorder (HRC) TAKE 1 CAPSULE BY MOUTH DAILY 90 Capsule 2 11/10/2020 Active Active Problems Problem Noted Date Diagnosed Date Hypertension 07/24/2013 Resolved Problems Problem Noted Date Diagnosed Date Resolved Date Anxiety 09/24/2013 03/25/2019 Immunizations Immunization Administration Dates Next Due Flu Vac (3+ yrs) 03/17/2003 Family History Medical History Relation Name Comments Hypertension Mother Hypertension Maternal Grandmother Stroke Maternal Grandmother Diabetes Paternal Aunt Anesthesia Reaction Negative Family History Bleeding Disorder Negative Family History Clotting Disorder Negative Family History Relation Name Status Comments Mother Maternal Grandmother Paternal Aunt Social History Tobacco Use Types Packs/Day Years Used Date Smoking Tobacco: Never Smokeless Tobacco: Never Alcohol Use Standard Drinks/Week Comments Not Currently 0 (1 standard drink = 0.6 oz pur e alcohol) PHQ-2 Answer Date Recorded PHQ-2 Score 6 09/20/2019 Comments No Sex and Gender Information Value Date Recorded Sex Assigned at Not on file Legal Sex Female 4:19 AM CDT Gender Identity Not on file Sexual Orientation Not on file Last Filed Vital Signs Vital Sign Reading Time Taken Comments Blood Pressure 122/86 05/09/2019 10:48 AM TRAINING PERSONNEL SUPERVISOR Pulse 70 03/25/2019 4:28 PM TRAINING PERSONNEL SUPERVISOR Temperature 37 C (98.6 F) 09/24/2013 3:01 PM CDT Respiratory Rate - - Oxygen Saturation - - Inhaled Oxygen Concentration - - Weight 56.7 kg (125 lb) 08/14/2020 2:11 PM CDT Height 157.5 cm (5' 2) 03/25/2019 4:28 PM TRAINING PERSONNEL SUPERVISOR Body Mass Index 22.86 03/25/2019 4:28 PM TRAINING PERSONNEL SUPERVISOR Plan of Treatment Health Maintenance Due Date Last Done Comments Colon Cancer Screening Plan Due 1973 Hep C Screening (Preventive Services) 1973 Mammogram 1973 HIV Screening (Preventive Services) 1989 Adult Preventive Visit 1991 DTaP/Tdap/Td (1 - Tdap) 1992 HepB (1) 1992 Cholesterol 2018 Pneumococcal 50+ Yrs (1 of 1 - PCV) 2023 Zoster/Shingles (1 of 2) 2023 Cervical Cancer Screening 11/22/20232018, 03/12/2010 COVID-19 Vaccine (1 - 2023-2 5 season) 2023 Influenza (#1) 2023 03/17/2003 HepA Aged Out No longer eligi ble based on patient's age to complete this topic Hib Aged Out No longer eligi ble based on patient's age to complete this topic IPV (Polio) Aged Out No longer eligi ble based on patient's age to complete this topic MCV4 Aged Out No longer eligi ble based on patient's age to complete this topic Meningococcal B Aged Out No longer el igible based on patient's age to complete this topic Pneumococcal Aged Out No longer eligi ble based on patient's age to complete this topic Procedures Procedure Name Priority Date/Time Associated Diagnosis Comments PAP TEST Routine 11/21/2018 4:04 PM CDT Screening for cervical cancer from Last 3 Months or Most Recently Relevant to Health Maintenance Results * PAP Test (11/21/2018 4:04 PM CDT) Case Report Pap Case: [id number] Authorizing Provider: Oneyda Bautista MD Collected: 11/21/2018 04:04 PM Ordering Location: [place] [address] Received: 11/21/2018 04:23 PM Obstetrics/Gynec ology First Screen: Theresa Hdz CT (ASCP) Specimen: Pap Test, Routine, Cervix/Endocervix 11/27/2018 6:39 AM CDT [facility] Pap Specimen Adequacy Satisfactory for evaluation, endocervical/stewart sformation zone component present. 11/27/2018 6:39 AM CDT [facility] Pap Interpretation Negative for intraepithelial lesion or malignancy (NILM). 11/27/2018 6:39 AM CDT [facility] at 0639 CDT Pap Other Findings Endometrial cells in a woman >=45 years of age. 11/27/2018 6:39 AM CDT [facility] Gross Description The specimen is received in SurePath fixative and properly labeled. 1 Pap-stained SurePath slide is prepared. 11/27/2018 6:39 AM CDT [facility] Pap Disclaimer The Pap test is a screening test designed to aid in the detection of cervical cancer and its precursor lesions. It is not a diagnostic procedure and should not be used as the sole means of detecting cervical cancer. Both false-positive and false-negative reports may occur. 11/27/2018 6:39 AM CDT [facility] Embedded Images 6:39 AM CDT [facility] Other Specimen Type ENTIRE ENDOCERVIX / Unknown 11/21/2018 4:04 PM CDT 11/21/2018 4:23 PM CDT Comment:LMP: Patient's last menstrual period was 11/17/2018. us Oneyda Bautista MD LAB PATHOLOGY Final Result [facility] [address] [place] [address], [facility] from Last 3 Months or Most Recently Relevant to Health Maintenance Care Teams Pharmacy Picking Tech Relationship Specialty Start Date End Date Roman Patten MD [address] [place] [id number] PCP - General 06/12/13
--- OUTSIDE RECORDS SUMMARY | 2024-06-24 22:55 | XMS_ITS | Clinical Summary ---
Author Organization [facility] Address [address] [place] [address] Care Team Providers Care Cylinder Press Feeder Name Role Phone Elsewhere, Pcp Primary Care Provider Unavailabl e Source Comments Patient records contain information from all sites at [facility]. For routine questions regarding patient records, call [phone] during business hours, M-F 8:00 AM - 5:00 PM Central Time. Record requests for emergency care only can be directed to [phone] at any time.[facility] Allergies No known active allergies Medications cholecalciferol (cholecalcifero l) 400 Unit tablet Take 400 Units by mouth daily. Active B complex-vitamin s (for_BALANCE B-50) tablet Take 1 tablet by mouth daily. Active busPIRone (BUSPAR) 10 mg tablet Take 1 tablet (10 mg total) by mouth 2 (two) times a day. 60 tablet 2 08/30/2017 Active escitalopram (LEXAPRO) 10 mg tablet Take 1 tablet (10 mg total) by mouth daily for 10 days. 30 tablet 1 08/30/2017 Active LORazepam (ATIVAN) 0.5 mg tablet Take 1/2 to 1 tab only as needed for panic symptoms, up to 2 tabs daily max. 10 tablet 08/30/2017 Active traZODone (DESYREL) 50 mg tablet Take 1 tablet (50 mg total) by mouth at bedtime. 30 tablet 1 08/30/2017 Active oxyCODONE-aceta minophen (PERCOCET) 5-325 mg per tabletIndicatio ns:Acute Pain Take 2 tablets by mouth every 6 (six) hours as needed for pain Indication: Acute Pain. 20 tablet 02/21/2018 Active FLUoxetine (PROzac) 10 mg capsule Take 1 capsule by mouth daily. 11/10/2020 Active losartan (COZAAR) 50 mg tablet Take 1 tablet (50 mg total) by mouth daily. 90 tablet 12/13/2022 Active metoprolol succinate (TOPROL-XL) 50 mg 24 hr tablet Take 1 tablet (50 mg total) by mouth daily. Do not crush or chew. 90 tablet 12/13/2022 Active hydrOXYzine (ATARAX) 25 mg tablet Take 1 tablet (25 mg total) by mouth every 8 (eight) hours as needed for anxiety. 90 tablet 12/13/2022 Active potassium chloride (K-TAB) 20 mEq CR tablet TAKE 1 TABLET(20 MEQ) BY MOUTH DAILY FOR 5 DAYS 5 tablet 12/22/2022 Active Active Problems Problem Noted Date Diagnosed Date Anxiety Generalized Disorder 08/30/2017 Hypertension Essential Primary 05/11/2016 Overview (07/14/2017): Hypertension (HTN) Chronic Depressive Disorder Resolved Problems Problem Noted Date Diagnosed Date Resolved Date Encounter For Screening For Cardiovascular Disorders 02/28/2010 08/04/2017 Fissure Anal 09/05/2007 08/04/2017 Hypertension NOS 08/04/2017 Family History Medical History Relation Name Comments Coronary artery disease Maternal Grandmother Hypertension Maternal Grandmother Stroke Maternal Grandmother age 32y rs Hypertension Mother Relation Name Status Comments Maternal Grandmother Mother Social History Tobacco Use Types Packs/Day Years Used Date Smoking Tobacco: Former Cigarettes Smokeless Tobacco: Never Alcohol Use Standard Drinks/Week Comments No 0 (1 standard drink = 0.6 oz pur e alcohol) Hasn't used in 9 months Nutrition Answer Date Recorded Nutrition: EVOO Fat Source Unknown 07/02 Nutrition: Servings of Fruits/Vegetables per Day Not on file 07/02/2020 Dental Answer Date Recorded Dental: Regular Dentist Unknown 07/03/19 21 Comments No Sex and Gender Information Value Date Recorded Sex Assigned at Not on file 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 Gender Identity Female 07/14/2017 9:05 AM CDT Sexual Orientation Straight 07/14/2017 9: 05 AM CDT Occupation Industry Job Start Date Job End Date Not on file Not on file Not on file Not on file Last Filed Vital Signs Vital Sign Reading Time Taken Comments Blood Pressure 148/104 12/13/2022 11:00 PM CDT Pulse 79 12/13/2022 11:15 PM CDT Temperature 36.7 C (98.1 F) 12/09/2020 5:15 AM CDT Respiratory Rate 12 12/13/2022 10:1 5 PM CDT Oxygen Saturation 96% 12/13/2022 11: 15 PM CDT Inhaled Oxygen Concentration - - Weight 61.6 kg (135 lb 12.9 oz) 12/13/2022 8:42 PM CDT Height 157.5 cm (5' 2) 12/13/2022 8:42 PM CDT Body Mass Index 24.84 12/13/2022 8:42 PM CDT Plan of Treatment Health Maintenance Due Date Last Done Comments CT Colonography 1973 Cologuard 1973 Colonoscopy 1973 Colorectal Cancer Screening 1973 Depression Monitoring (PHQ-9) 1973 FIT 1973 Hepatitis C Screening 1973 Lipid (Cholesterol) Screening 1973 Office Visit for Blood Pressure Check / Re-check 1973 Hepatitis B Vaccines (1 of 3 - 19+ 3-dose series) 1992 Mammogram 09/07/2018 09/07/2017 Pneumococcal vaccine (50+ years) (1 of 1 - PCV) 2023 Zoster Vaccines (1 of 2) 2023 COVID-19 Vaccine (1 - 2023- season) 2023 Influenza Vaccine (#1) 2024 03/17/2003 Depression Monitoring (PHQ-9 for quality tracking) 05/01/2024 Fasting Glucose for Diabetes Screening 12/13/2025 12/13/2022, 08/02/2017 DTaP,Tdap,and Td Vaccines (2 - Td or Tdap) 12/14/2031 12/13/2021 Cervical/Vaginal Cancer Screening Discontinued 11/21/2018 IPV Vaccines Aged Out No longer eligi ble based on patient's age to complete this topic Procedures Procedure Name Priority Date/Time Associated Diagnosis Comments COMPREHENSIVE METABOLIC PANEL, S/P STAT 12/13/2022 8:59 PM CDT BI BREAST SCREENING BILATERAL RAD - Routine (most inpatients and all outpatients) 09/07/2017 7:50 AM CDT Screening Mammogram Average Risk Patient from Last 3 Months or Most Recently Relevant to Health Maintenance Results * (ABNORMAL) Comprehensive Metabolic Panel (12/13/2022 8:59 PM CDT) Potassium, P 3.0(L) 3.6 - 5.2 mmol/L 12/13/2022 9:27 PM CDT NPRG Sodium, P 140 135 - 145 mmol/L 12/13/2022 9:27 PM CDT NPRG Chloride, P 100 98 - 107 mmol/L 12/13/2022 9:27 PM CDT NPRG Bicarbonate, P 22 22 - 29 mmol/L 12/13/2022 9:27 PM CDT NPRG Anion Gap, P 18(H) 7 - 15 12/13/2022 9:27 PM CDT NPRG BUN (Blood Urea Nitrogen), P 8 6 - 21 mg/dL 12/13/2022 9:27 PM CDT NPRG Creatinine 1.15(H) 0.59 - 1.04 mg/dL 12/13/2022 9:27 PM CDT NPRG Estimated GFR (eGFR) 58(L) >=60 mL/min/BS A 12/13/2022 9:27 PM CDT NPRG Comment: Estimated GFR calculated using the 2020 CKD_EPI creatinine equation. Calcium, Total, P 8.9 8.6 - 10.0 mg/dL 12/13/2022 9:27 PM CDT NPRG Glucose, P 100 70 - 140 mg/dL 12/13/2022 9:27 PM CDT NPRG Protein, Total, P 7.3 6.3 - 7.9 g/dL 12/13/2022 9:27 PM CDT NPRG Albumin, P 4.3 3.5 - 5.0 g/dL 12/13/2022 9:27 PM CDT NPRG Aspartate Aminotransferase (AST), P 66(H) 8 - 43 U/L 12/13/2022 9:27 PM CDT NPRG Alkaline Phosphatase, P 80 35 - 104 U/L 12/13/2022 9:27 PM CDT NPRG Alanine Aminotransferase (ALT), P 52(H) 7 - 45 U/L 12/13/2022 9:27 PM CDT NPRG Bilirubin, Total, P 0.5 <=1.2 mg/dL 12/13/2022 9:27 PM CDT NPRG Blood (Blood, Venous) 12/13/2022 8:59 PM CDT 12/13/2022 9:08 PM CDT us Suzanne Keene D.O. LAB BLOOD ADD-ON Final Result [facility] [address] [place] [address], [facility] NPRG [facility] [address] [place] [address] * BI Breast Screening Bilateral (09/07/2017 7:50 AM CDT) Anatomical Region Laterality Modality Breast, Breast Imaging RST LOS Bilateral M ammography 09/07/2017 8:45 AM CDT Impressions 09/07/2017 8:46 AM CDT IMPRESSION: Negative. RECOMMENDATION: Annual Screening Mammogram ASSESSMENT: BI-RADS: 1: Negative. Narrative 09/07/2017 8:46 AM CDT EXAM: BI BREAST SCREENING BILATERAL Current study was evaluated with a Computer Aided Detection (CAD) system. INDICATION: Screening mammogram. COMPARISON: None, this is a baseline screening exam. DENSITY: c. The breast(s) are heterogeneously dense, which may obscure small masses. FINDINGS: No mammographic findings of malignancy. Procedure Note Kole Lai M.D. - 09/07/2017 EXAM: BI BREAST SCREENING BILATERAL Current study was evaluated with a Computer Aided Detection (CAD) system. INDICATION: Screening mammogram. COMPARISON: None, this is a baseline screening exam. DENSITY: c. The breast(s) are heterogeneously dense, which may obscuresmall masses. FINDINGS: No mammographic findings of malignancy. IMPRESSION: Negative. RECOMMENDATION: Annual Screening Mammogram ASSESSMENT: BI-RADS: 1: Negative. us Kaya Dejesus APRN, C.N.P. IMG BI PROCEDURES F inal Result from Last 3 Months or Most Recently Relevant to Health Maintenance Care Teams Cylinder Press Feeder Relationship Specialty Start Date End Date Elsewhere, Pcp PCP - General Family Medicine 06/12/20
--- OUTSIDE RECORDS SUMMARY | 2024-06-24 22:55 | XMS_ITS | Encounter Summary ---
Author Organization [facility] Address [address] [place] [address] Care Team Providers Care Support Representative Name Role Phone Roman Patten MD Primary Care Provider [phone] Encounter Details Date Type Department Care Team (Late st Contact Info) Description 01/21/2016 Orders Only [facility] [address] [facility] [address] David Martini, DPM [address] [facility] [place] [id number] Social History Tobacco Use Types Packs/Day Years Used Date Smoking Tobacco: Never Alcohol Use Standard Drinks/Week Comments Yes 0 (1 standard drink = 0.6 oz pur e alcohol) Socially Comments No Sex and Gender Information Value Date Recorded Sex Assigned at Not on file Legal Sex Female 4:19 AM CDT Gender Identity Not on file Sexual Orientation Not on file documented as of this encounter Plan of Treatment Not on file documented as of this encounter Visit Diagnoses Not on filedocumented in this encounter Additional Health Concerns Infection Onset Date Last Indicated Resolved Time R/O COVID19 09/17/2019 09/17/2019 09/18/2019 4:30 PM CDT documented as of this encounter Care Teams Support Representative Relationship Specialty Start Date End Date Roman Patten MD [address] [place] [address] PCP - General 06/12/13 documented as of this encounter
--- OUTSIDE RECORDS SUMMARY | 2024-06-24 22:55 | XMS_ITS | Encounter Summary ---
[facility] Organization [facility] Address [address] [place] [address] Care Team Providers Care Husker Operator Name Role Phone Roman Patten MD Primary Care Provider [phone] Encounter Details Date Type Department Care Team (Late st Contact Info) Description 07/23/2015 Orders Only [facility] [address] [place] [address] David Martini, DPM [address] [facility] [facility] [address] [address] [place] [id number] Social History Tobacco Use Types Packs/Day Years Used Date Smoking Tobacco: Never Assessed Comments No Sex and Gender Information Value [...] documented as of this encounter Care Teams Husker Operator Relationship Specialty Start Date End Date Roman Patten MD [address] [place] [address] PCP - General 06/12/13 documented as of this encounter
--- OUTSIDE RECORDS SUMMARY | 2024-06-24 22:55 | XMS_ITS | Encounter Summary ---
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 Name Role Phone Elsewhere, Pcp Primary Care Provider Unavailabl e Reason for Visit * Reason Comments Trauma Encounter Details Date Type Department Care Team (Late st Contact Info) Description 05/25/2024 1:54 PM RED CAP - 05/25/2024 4:48 PM RED CAP Emergency [facility] EM[facility]GENC[facility] DEPARTMENT [address] [place] [id number] Abbie Reyna, PALady [address] [place], [place] [id number] Closed trimalleolar fracture of right ankle, initial encounter (Primary Dx); Ankle dislocation, right, initial encounter; Fall, initial encounter Discharge Disposition: Home and/or Self Care Social History Tobacco Use Types Packs/Day Years Used Date Smoking Tobacco: Never Assessed EH IP Custom IPV Answer Date Recorded Do you feel UNSAFE in any of your personal relationships with your family members or any other acquaintances? No 2024 Comments Unknown Sex and Gender Information Value Date Recorded Sex Assigned at Not on file Legal Sex Female 1:53 PM RED CAP Gender Identity Not on file Sexual Orientation Not on file documented as of this encounter Last Filed Vital Signs Vital Sign Reading Time Taken Comments Blood Pressure 159/107 05/25/2024 3:20 PM RED CAP Pulse 81 05/25/2024 3:20 PM RED CAP Temperature 36.9 C (98.4 F) 05/25/2024 1:58 PM RED CAP Respiratory Rate 19 05/25/2024 3:20 PM RED CAP Oxygen Saturation 97% 05/25/2024 3:20 PM RED CAP Inhaled Oxygen Concentration - - Weight 56.7 kg (125 lb) 05/25/2024 1:58 PM RED CAP Height - - Body Mass Index - - documented in this encounter Functional Status * Patient's Vision Adequate to Safely Complete Daily Activities Answer Date of Assessment Author Yes 05/25/2024 2:10 PM RED CAP Haritha Garzon RN * Patient's Memory Adequate to Safely Complete Daily Activities Answer Date of Assessment Author Yes 05/25/2024 2:10 PM RED CAP Haritha Garozn RN documented as of this encounter Mental Status * Patient's Judgment Adequate to Safely Complete Daily Activities Answer Entry Date Author Yes 05/25/2024 2:10 PM RED CAP Haritha Garzon RN documented in this encounter Discharge Instructions * Discharge Instructions* Abbie Reyna PA-C - 05/25/2024 4:17 PM RED CAP Take 600 mg of ibuprofen with food every 6-8 hours. Take Tylenol every 6 hours as needed for pain. Maximum dose of Tylenol is 4000 mg in 24 hours and do not exceed this amount. Take Percocet every 4-6 hours as needed for more severe pain. Do not take this with driving or drinking alcohol. Take a stool softener as this can cause constipation. Call [facility] orthopedic on Monday to make a follow-up appointment this week. You will likely need surgical fixation of the right ankle. Return to the emergency department if worsening symptoms, uncontrolled pain, blue discoloration of the toes, numbness or any other medical concerns. CAP CAP CAP documented in this encounter Medications at Time of Discharge FLUoxetine (PROzac) 20 MG capsule Take 20 mg by mouth one time a day. LOSARTAN POTASSIUM OR Take by mouth. HYDROXYZINE HCL OR Take by mouth. oxyCODONE-acetam inophen (Percocet) 5-325 MG oral tablet Take 1 Tablet by mouth every four hours as needed for Pain. Limit acetaminophen to 4000 mg per day from all sources. 15 Tablet 05/25/2024 documented as of this encounter Ordered Prescriptions Prescription Sig Dispense Quantity Refills Last Filled Start Date End Date oxyCODONE-acetami nophen (Percocet) 5-325 MG oral tablet Take 1 Tablet by mouth every four hours as needed for Pain. Limit acetaminophen to 4000 mg per day from all sources. 15 Tablet 05/25/2024 documented in this encounter Discharge Disposition Disposition Code Departure Means Destination Comment s Home and/or Self Mcc documented in this encounter Progress Notes * Rusty Esteves GUN PROFILER - 05/25/2024 3:09 PM CST Procedural Sedation Assist Preoxygenation: 100 Suction and bag valve mask at bedside SpO2: 100 EtCO2: 43 Interventions needed: no Was SpO2 <85% for more than 3 minutes?: no CAP documented in this encounter ED Notes * Jeny Yost RN - 05/25/2024 3:37 PM CST Bed: ED 4 Expected date: 05/25/24 Expected time: Means of arrival: Comments: Hold for B CAP * Jermaine Lee MD - 05/25/2024 2:37 PM CSTAssociated Order(s): Moderate Sedation Post-Procedure Diagnose(s): Closed trimalleolar fracture of right ankle, initial encounter; Ankle dislocation, right, initial encounter Moderate Sedation Date/Time: 05/25/2024 2:37 PM Performed by: Jermaine Lee MD Authorized by: Jermaine Lee MD Consent: Consent obtained: Verbal and emergent situation Risks, benefits, and alternatives were discussed: yes Risks discussed: Inadequate sedation and respiratory compromise necessitating ventilatory assistance and intubation Alternatives discussed: Analgesia without sedation [place] protocol: Procedure explained and questions answered to patient or proxy's satisfaction: yes Immediately prior to procedure, a time out was called: yes Patient identity confirmed: Verbally with patient and arm band Indications: Procedure performed: Dislocation reduction Procedure necessitating sedation performed by: Different physician Intended level of sedation: Moderate Pre-sedation assessment: Time since last food or drink: 4 hr ASA classification: class 1 - normal, healthy patient Mouth openin finger widths Mallampati score: II - soft palate, uvula, fauces visible Neck mobility: normal Pre-sedation assessments completed and reviewed: airway patency, anesthesia/sedation history, cardiovascular function, hydration status, mental status, nausea/vomiting, pain level and respiratory function History of difficult intubation: no Pre-sedation assessment completed: 05/25/2024 2:38 PM Procedure details (see MAR for exact dosages): Sedation start time: 05/25/2024 2:20 PM Preoxygenation: Nonrebreather mask Sedation: Propofol Intra-procedure monitoring: Blood pressure monitoring, playground monitor, continuous pulse oximetry, continuous capnometry, frequent LOC assessments and frequent vital sign checks Intra-procedure events: none Sedation end time: 05/25/2024 3:00 PM Total sedation time (minutes): 40 Post-procedure details: Post-sedation assessment completed: 05/25/2024 3:10 PM Attendance: Constant attendance by certified staff until patient recovered Recovery: Patient returned to pre-procedure baseline Complications: Nil Post-sedation assessments completed and reviewed: airway patency, cardiovascular function, hydration status, mental status and respiratory function Patient is stable for discharge or admission: yes Procedure completion: Tolerated well, no immediate complications Jermaine Lee MD 05/25/24 1722 CAP * Abbie Reyna PA-C - 05/25/2024 2:26 PM CSTAssociated Order(s): Orthopedic Injury Treatment - Fracture Post-Procedure Diagnose(s): Closed trimalleolar fracture of right ankle, initial encounter ED PROVIDER NOTE Name: Suzanne Duque Date of : 1975 SUBJECTIVE: Chief Complaint: Chief Complaint Patient presents with Trauma History of Present Illness: Suzanne Duque is a 49 year old female with a history of anxiety, depression, hypertension, hyperlipidemia presents to the emergency department by EMS after a fall. Patient says she was going to do a polar plunge and accidentally slipped on the ice. Patient felt a crack and pain in the right ankle. Patient was unable to stand and walk. Patient denies head injury. No headache, dizziness or synco pe. No neck pain. No chest, back or abdominal pain. No hip pain. Patient says only area of pain is in the left ankle and it is severe. No numbness or tingling. Patient says she last ate blueberries and bananas around 10:30 AM this morning. Patient was given 100 mg of fentanyl and 10 mg of morphine prior to arrival. MEDICAL, SOCIAL, FAMILY HISTORY: Medical, social, and family history reviewed with patient and in chart. PMH: Anxiety, depression, hypertension, hyperlipidemia PHYSICAL EXAMINATION: Vital Signs: Blood pressure (!) 159/107, pulse 81, temperature 98.4 ??F (36.9 ??C), resp. rate 19, weight 56.7 kg (125 lb), SpO2 97%. Physical Exam: GENERAL: Well-nourished, alert, cooperative, moderate distress from pain. The patient appears moderately uncomfortable. Patient is tearful. HEAD: Atraumatic. No swelling, non-tender EYES: Pupils equal, round, and reactive to light. Extra-ocular movements intact. Conjunctiva clear NOSE: No nasal discharge. MOUTH: Moist mucous membranes, no lesions. THROAT: No posterior pharyngeal inflammation or erythema. Swallowing normally. NECK: Supple, no midline cervical spine tenderness. Atraumatic. No bruising. Full range of motion. BACK: CHEST WALL: Nontender LUNGS: No respiratory distress. Clear to auscultation bilaterally. No SOB or wheezing. No cough HEART: Regular rate and rhythm, no murmurs. Peripheral pulses palpable. ABDOMEN: Soft, nontender. NEURO: Awake and alert. Moving all extremities. Sensation intact. No focal deficits. EXTREMITIES: Bruising, swelling and deformity of the right ankle with skin tenting. No open wounds or bleeding. Severe pain with palpation of the right ankle. Pedal pulses intact. Warm toes. Cap refill less than 2 seconds. No pain with palpation of the right knee, proximal tibia/fib or hip. No painwith palpation of the upper extremities or left lower extremity. Old appearing bruise to the left calvert that is nontender. SKIN: Warm and dry. Good color. PSYCH: Appropriate mood and matching affect. Differential Diagnosis: ED COURSE, MEDICAL DECISION MAKING: Data: All laboratory data, imaging, and EKGs were interpreted independently and reviewed as below. No results found for this or any previous visit (from the past 12 hours). Imaging Results XR ANKLE RIGHT 3 OR MORE VIEWS (In process) XR C ARM FLUORO (In process) XR ANKLE RIGHT 2 VIEWS (In process) Result time 05/25/24 14:33:57 Procedure changed from XR ANKLE RIGHT 3 OR MORE VIEWS Procedure: Orthopedic Injury Treatment - Fracture Date/Time: 05/25/2024 3:30 PM Performed by: Abbie Reyna PA-C Authorized by: Abbie Reyna PA-C Consent: Consent obtained: Verbal Consent given by: Patient Risks, benefits, and alternatives were discussed: yes Risks discussed: Pain [place] protocol: Patient identity confirmed: Verbally with patient Injury: Injury location: Ankle Ankle injury location: R ankle Ankle fracture type: trimalleolar Pre-procedure details: Distal neurologic exam: Normal Distal perfusion: distal pulses strong and brisk capillary refill Range of motion: reduced Sedation: Sedation type: Deep Procedure details: Manipulation performed: yes (Dislocation reduced) Reduction successful: yes Immobilization: Splint Splint type: Short leg (RJ) Supplies used: Plaster (Plaster RJ splint) Post-procedure details: Distal neurologic exam: Normal Distal perfusion: brisk capillary refill Procedure completion: Tolerated well, no immediate complications Patient was seen after arrival. Patient is tearful and appears uncomfortable. Patient was given 150mcg of fentanyl and 10 mg of morphine by EMS. Patient is reporting 10 out of 10 pain in the right ankle. SpO2 sat 94%, respirations 18 and patient is hypertensive at 185/114 which may be related to pain. Patient was given an additional 50 mcg of fentanyl for the x-ray. X-ray of the right ankle shows a displaced trimalleolar fracture with ankle dislocation. No open fracture. Dr. Lee also evaluated the patient and agrees with sedation and reduction. Patient last ate blueberries and bananas around 10:30 AM this morning. Patient is not nauseated and was given Zofran by EMS prior to arrival. Patient has no other areas of pain other than in the right ankle. No proximal tib-fib pain. Patient was moved to room B. Patient was preoxygenated. Patient was sedated with propofol by Dr. Lee and I performed the reduction. See procedure note. C-arm was used during the procedure. RJ splint was placed. Patient tolerated the procedure well. Postreduction x-rays were performed. Postreduction x-rays show improvement of the dislocation and better alignment of the trimalleolar fracture. Pain down to a 6 out of 10. Patient was watched in the emergency department for an hour after receiving sedation. Patient is awake and alert and feeling improved. I did a repeat physical exam and see no other signs of acute injury. Old appearing bruising to the left calvert that is nontender. Patient was taught how to use crutches. After the crutch instructions patient is having increasing pain. Patient was given 5 mg of oxycodone and 600 mg of ibuprofen with crackers. I did not contact orthopedics since patient is from out of town and says she will follow-up with [facility] orthopedics in [place]. We discussed she will likely need surgical intervention to fix the right ankle fracture. Patient will call orthopedics on Monday to make an appointment for early this week. Patient will keep the splint on at all times and notget this wet. Ibuprofen every 6-8 hours, Tylenol every 4- 6 hours, Percocet every 4-6 hours. Percocet does contain Tylenol and patient understands the maximum dose of Tylenol. Patient was given a worknote. Patient was discharged in stable condition and understands return precautions. Patient understands the possibility of compartment syndrome and will watch for this. Return to the emergency department if worsening symptoms, worsening pain, uncontrolled pain, numbness, blue discoloration of the toes or any other medical concerns. After evaluation in the emergency department, patient appears appropriate for a trial of outpatientmanagement. Clinical findings and return precautions were reviewed and the patient verbalized understanding. FINAL CLINICAL IMPRESSION: (S82.851A) Closed trimalleolar fracture of right ankle, initial encounter (primary encounter diagnosis) (S93.04XA) Ankle dislocation, right, initial encounter (W19.XXXA) Fall, initial encounter Abbie Reyna PA-C 05/25/24 1627 CAP * Haritha Garzon RN - 05/25/2024 1:55 PM CST Pt arrived by [facility] from Home alone with complaints of right ankle pain.. EMS Significant Findings: Patient slipped on the ice, states she heard her right ankle crack. No other injuries, did not hit her head. Ankle obviously deformed EMS Interventions: splint Additional Information: patient not from the area- in the area [place] in [place] CAP * Jeny Yost RN - 05/25/2024 1:54 PM CST Bed: ED 4 Expected date: 05/25/24 Expected time: 1:46 PM Means of arrival: Ambulance Comments: [facility] 852 Dislocated or fractured ankle CAP documented in this encounter Plan of Treatment Not on file documented as of this encounter Procedures Procedure Name Priority Date/Time Associated Diagnosis Comments APPLY LOWER LEG SPLINT 05/25/2024 3:30 PM RED CAP Closed trimalleolar fracture of right ankle, initial encounter CLOSED RX TRIMALLEOLAR FX,MANIP 05/25/2024 3:30 PM RED CAP Closed trimalleolar fracture of right ankle, initial encounter XR ANKLE RIGHT 3 OR MORE VIEWS STAT 05/25/2024 3:28 PM RED CAP Closed trimalleolar fracture of right ankle, initial encounter XR C ARM FLUORO STAT 05/25/2024 3:15 PM RED CAP Closed trimalleolar fracture of right ankle, initial encounter MOD SED OTHER PHYS/QHP EACH ADDL 15 MINS 05/25/2024 2:37 PM RED CAP Closed trimalleolar fracture of right ankle, initial encounter Ankle dislocation, right, initial encounter MOD SED OTHER PHYS/QHP EACH ADDL 15 MINS 05/25/2024 2:37 PM RED CAP Closed trimalleolar fracture of right ankle, initial encounter Ankle dislocation, right, initial encounter MOD SED OTHER PHYS/QHP INITIAL 15 MINS 5/> YRS 05/25/2024 2:37 PM RED CAP Closed trimalleolar fracture of right ankle, initial encounter Ankle dislocation, right, initial encounter XR ANKLE RIGHT 2 VIEWS STAT 05/25/2024 2:33 PM RED CAP Closed trimalleolar fracture of right ankle, initial encounter documented in this encounter Results * CLOSED RX TRIMALLEOLAR FX,MANIP, APPLY LOWER LEG SPLINT (05/25/2024 3:30 PM RED CAP) Narrative Abbie Reyna PA-C - 05/25/2024 3:30 PM RED CAP Abbie Reyna PA-C 05/25/2024 4:27 PM Orthopedic Injury Treatment - Fracture Date/Time: 05/25/2024 3:30 PM Performed by: Abbie Reyna PA-C Authorized by: Abbie Reyna PA-C Consent: Consent obtained: Verbal Consent given by: Patient Risks, benefits, and alternatives were discussed: yes Risks discussed: Pain [place] protocol: Patient identity confirmed: Verbally with patient Injury: Injury location: Ankle Ankle injury location: R ankle Ankle fracture type: trimalleolar Pre-procedure details: Distal neurologic exam: Normal Distal perfusion: distal pulses strong and brisk capillary refill Range of motion: reduced Sedation: Sedation type: Deep Procedure details: Manipulation performed: yes (Dislocation reduced) Reduction successful: yes Immobilization: Splint Splint type: Short leg (RJ) Supplies used: Plaster (Plaster RJ splint) Post-procedure details: Distal neurologic exam: Normal Distal perfusion: brisk capillary refill Procedure completion: Tolerated well, no immediate complications Abbie Reyna PA-C PROCEDURE/MINOR RAMY ORDERAB LES Final Result * XR ANKLE RIGHT 3 OR MORE VIEWS (05/25/2024 3:28 PM RED CAP) Anatomical Region Laterality Modality Ankle Radiographic Ursula ging 05/25/2024 3:28 PM RED CAP Narrative 05/26/2024 7:44 AM RED CAP PROCEDURE: XR ANKLE RIGHT 3 OR MORE VIEWS. HISTORY: right ankle injury reduction COMPARISON: Right ankle, 2 views 05/25/2024, 1425 hours. FINDINGS: Post reduction radiographs demonstrate significant improvement in alignment of the fracture dislocation, right tibiotalar joint. No underlying bone lesion is seen to indicate a pathologic fracture. Mild widening of the ankle mortise along the medial aspect. Talar dome appears intact. IMPRESSION: Significant interval improvement in alignment of the fracture dislocation, right tibiotalar joint, post closed reduction. Electronically signed by Patrice Gonsales MD Report Date: 05/26/2024 7:44 AM Procedure Note Patrice Gonsales MD - 05/26/2024 PROCEDURE: XR ANKLE RIGHT 3 OR MORE VIEWS. HISTORY: right ankle injury reduction COMPARISON: Right ankle, 2 views 05/25/2024, 1425 hours. FINDINGS: Post reduction radiographs demonstrate significant improvement inalignment of the fracture dislocation, right tibiotalar joint. No underlying bonelesion is seen to indicate a pathologic fracture. Mild widening of the ankle mortisealong the medial aspect. Talar dome appears intact. IMPRESSION: Significant interval improvement in alignment of the fracture dislocation,right tibiotalar joint, post closed reduction. Electronically signed by Patrice Gonsales MD Report Date: 05/26/2024 7:44 AM Abbie Reyna PA-C EC DIAGNOSTIC IMAGING ORDER ADAM Final Result * XR C ARM FLUORO (05/25/2024 3:15 PM RED CAP) Anatomical Region Laterality Modality Radiographic Ursula ging 05/25/2024 3:05 PM RED CAP Narrative 05/26/2024 7:47 AM RED CAP PROCEDURE: C-ARM FLUOROSCOPIC SUPPORT HISTORY: fall right ankle pain deformity. TECHNIQUE: C-arm fluoroscopic imaging. Total fluoroscopy time: 5 seconds. Number of saved fluoroscopic images: 3. COMPARISON: Right ankle, 2 views 05/25/2024, 1425 hours. IMPRESSION: Images obtained during reduction of a displaced, trimalleolar, fracture dislocation, right tibiotalar joint. Alignment is improved. There is persistent widening of the ankle mortise. Please see the procedure note for additional details. Electronically signed by Patrice Gonsales MD Report Date: 05/26/2024 7:47 AM Procedure Note Patrice Gonsales MD - 05/26/2024 PROCEDURE: C-ARM FLUOROSCOPIC SUPPORT HISTORY: fall right ankle pain deformity. TECHNIQUE: C-arm fluoroscopic imaging. Total fluoroscopy time: 5 seconds. Number of saved fluoroscopic images: 3. COMPARISON: Right ankle, 2 views 05/25/2024, 1425 hours. IMPRESSION: Images obtained during reduction of a displaced, trimalleolar, fracture dislocation, right tibiotalar joint. Alignment is improved. There ispersistent widening of the ankle mortise. Please see the procedure note foradditional details. Electronically signed by Patrice Gonsales MD Report Date: 05/26/2024 7:47 AM us Abbie Reyna PA-C EC DIAGNOSTIC IMAGING ORDER ADAM Final Result * MOD SED OTHER PHYS/QHP INITIAL 15 MINS 5/> YRS, MOD SED OTHER PHYS/QHP EACH ADDL 15 MINS, MOD SED OTHER PHYS/QHP EACH ADDL 15 MINS (05/25/2024 2:37 PM RED CAP) Narrative Jermaine Lee MD - 05/25/2024 2:37 PM RED CAP Jermaine Lee MD 05/25/2024 5:22 PM Moderate Sedation Date/Time: 05/25/2024 2:37 PM Performed by: Jermaine Lee MD Authorized by: Jermaine Lee MD Consent: Consent obtained: Verbal and emergent situation Risks, benefits, and alternatives were discussed: yes Risks discussed: Inadequate sedation and respiratory compromise necessitating ventilatory assistance and intubation Alternatives discussed: Analgesia without sedation [place] protocol: Procedure explained and questions answered to patient or proxy's satisfaction: yes Immediately prior to procedure, a time out was called: yes Patient identity confirmed: Verbally with patient and arm band Indications: Procedure performed: Dislocation reduction Procedure necessitating sedation performed by: Different physician Intended level of sedation: Moderate Pre-sedation assessment: Time since last food or drink: 4 hr ASA classification: class 1 - normal, healthy patient Mouth openin finger widths Mallampati score: II - soft palate, uvula, fauces visible Neck mobility: normal Pre-sedation assessments completed and reviewed: airway patency, anesthesia/sedation history, cardiovascular function, hydration status, mental status, nausea/vomiting, pain level and respiratory function History of difficult intubation: no Pre-sedation assessment completed: 05/25/2024 2:38 PM Procedure details (see MAR for exact dosages): Sedation start time: 05/25/2024 2:20 PM Preoxygenation: Nonrebreather mask Sedation: Propofol Intra-procedure monitoring: Blood pressure monitoring, playground monitor, continuous pulse oximetry, continuous capnometry, frequent LOC assessments and frequent vital sign checks Intra-procedure events: none Sedation end time: 05/25/2024 3:00 PM Total sedation time (minutes): 40 Post-procedure details: Post-sedation assessment completed: 05/25/2024 3:10 PM Attendance: Constant attendance by certified staff until patient recovered Recovery: Patient returned to pre-procedure baseline Complications: Nil Post-sedation assessments completed and reviewed: airway patency, cardiovascular function, hydration status, mental status and respiratory function Patient is stable for discharge or admission: yes Procedure completion: Tolerated well, no immediate complications Jermaine Lee MD PROCEDURE/MINOR RAMY ORDERABLES Final Result * XR ANKLE RIGHT 2 VIEWS (05/25/2024 2:33 PM RED CAP) Anatomical Region Laterality Modality Ankle Radiographic Ursula ging 05/25/2024 2:17 PM RED CAP Narrative 05/26/2024 7:38 AM RED CAP PROCEDURE: XR ANKLE RIGHT 2 VIEWS. HISTORY: fall ankle injury dislocation COMPARISON: None available. FINDINGS: There is a trimalleolar fracture dislocation at the right tibiotalar joint. Orthopedic consultation is advised. No underlying bone lesion is seen to indicate a pathologic fracture. The talar dome appears intact. The subtalar and talonavicular joints are normal. No radiopaque foreign body. IMPRESSION: Acute right trimalleolar fracture dislocation. Electronically signed by Patrice Gonsales MD Report Date: 05/26/2024 7:38 AM Procedure Note Patrice Gonsales MD - 05/26/2024 PROCEDURE: XR ANKLE RIGHT 2 VIEWS. HISTORY: fall ankle injury dislocation COMPARISON: None available. FINDINGS: There is a trimalleolar fracture dislocation at the right tibiotalarjoint. Orthopedic consultation is advised. No underlying bone lesion is seen to indicate a pathologic fracture. The talar dome appears intact. Thesubtalar and talonavicular joints are normal. No radiopaque foreign body. IMPRESSION: Acute right trimalleolar fracture dislocation. Electronically signed by Patrice Gonsales MD Report Date: 05/26/2024 7:38 AM us Abbie Reyna PA-C EC DIAGNOSTIC IMAGING ORDER ADAM Final Result documented in this encounter Visit Diagnoses Diagnosis Closed trimalleolar fracture of right ankle, initial encounter- Primary Ankle dislocation, right, initial encounter Fall, initial encounter documented in this encounter Administered Medications Inactive Administered Medications Medication Order MAR Action Action Date Dose Rate Site fentaNYL (Sublimaze) injection 50 mcg 50 mcg, IV Push, ONCE, 1 dose, On 05/25/24 at 1430 Given 05/25/2024 2:25 PM RED CAP 50 mcg fentaNYL (Sublimaze) injection ADS OVERRIDE 1 dose, Starting on 05/25/24 at 1423, Until 05/25/24 at 1425 ibuprofen (Advil) tablet 600 mg 600 mg, Oral, ONCE, 1 dose, On 05/25/24 at 1630 Given 05/25/2024 4:20 PM RED CAP 600 mg oxyCODONE (Roxicodone) immediate release tablet 5 mg 5 mg, Oral, ONCE, 1 dose, On 05/25/24 at 1630 Given 05/25/2024 4:21 PM RED CAP 5 mg propofol (Diprivan) 200 MG/20ML injection IV Push, One-Step Narrator Medication, Starting on 05/25/24 at 0148, Until 05/25/24 at 1448 Given 05/25/2024 2:48 PM RED CAP 60 mg Given 05/25/2024 1:48 AM RED CAP 60 mg propofol (Diprivan) 200 MG/20ML injection IV Push, One-Step Narrator Medication, Starting on 05/25/24 at 1450, Until 05/25/24 at 1450 Given 05/25/2024 2:50 PM RED CAP 40 mg propofol (Diprivan) 200 MG/20ML injection IV Push, One-Step Narrator Medication, Starting on 05/25/24 at 1551, Until 05/25/24 at 1451 Given 05/25/2024 2:51 PM RED CAP 40 mg propofol (Diprivan) 200 MG/20ML injection IV Push, One-Step Narrator Medication, Starting on 05/25/24 at 1453, Until 05/25/24 at 1453 Given 05/25/2024 2:53 PM RED CAP 30 mg documented in this encounter Historical Medications * This list may reflect changes made after this encounter. HYDROXYZINE HCL OR Take by mouth. LOSARTAN POTASSIUM OR Take by mouth. FLUoxetine (PROzac) 20 MG capsule Take 20 mg by mouth one time a day. added in this encounter Active and Recently Administered Medications Times are shown in RED CAP. Scheduled Medication Order 05/23/2024 05/24/2024 05/25/2024 fentaNYL (Sublimaze) injection 50 mcg (COMPLETED) 50 mcg, IV Push, ONCE, 1 dose, On 05/25/24 at 1430 1425 (Given - Provid er: Haritha Garzon RN) ibuprofen (Advil) tablet 600 mg (COMPLETED) 600 mg, Oral, ONCE, 1 dose, On 05/25/24 at 1630 1620 (Given - Provid er: Haritha Garzon RN) oxyCODONE (Roxicodone) immediate release tablet 5 mg (COMPLETED) 5 mg, Oral, ONCE, 1 dose, On 05/25/24 at 1630 1621 (Given - Provid er: Haritha Garzon RN) PRN Medication Order 05/23/2024 05/24/2024 05/25/2024 propofol (Diprivan) 200 MG/20ML injection (COMPLETED) IV Push, One-Step Narrator Medication, Starting on 05/25/24 at 0148, Until 05/25/24 at 1448 0148 (Given - Provid er: Haritha Garzon RN)1448 (Given - Provider: Haritha Garzon RN) propofol (Diprivan) 200 MG/20ML injection (COMPLETED) IV Push, One-Step Narrator Medication, Starting on 05/25/24 at 1450, Until 05/25/24 at 1450 1450 (Given - Provid er: Haritha Garzon RN) propofol (Diprivan) 200 MG/20ML injection (COMPLETED) IV Push, One-Step Narrator Medication, Starting on 05/25/24 at 1551, Until 05/25/24 at 1451 1451 (Given - Provid er: Haritha Garzon RN) propofol (Diprivan) 200 MG/20ML injection (COMPLETED) IV Push, One-Step Narrator Medication, Starting on 05/25/24 at 1453, Until 05/25/24 at 1453 1453 (Given - Provid er: Haritha Garzon RN) No Frequency Medication Order 05/23/2024 05/24/2024 05/25/2024 propofol (Diprivan) 200 MG/20ML injection ADS OVERRIDE 1 dose, Starting on 05/25/24 at 1536, Until 05/25/24 at 2048 1537 (Not Given - Pr ovider: Haritha Garzon RN - Reason: Other) documented in this encounter Orders Medications Ordered That Kwame ht Not Have Been Administered Count Last Ordered Date First Ordered Date propofol (Diprivan) 200 MG/2 0ML injection ADS OVERRIDE 1 05/25/2024 Materials Management Count Last Ordered Date Fi rst Ordered Date [employer] (DME) AMBULATORY AIDS 1 05/25/2024 documented in this encounter Care Teams Commercial Shrimping Captain Relationship Specialty Start Date End Date Elsewhere, Pcp PCP - General 05/25/24 documented as of this encounter
--- OUTSIDE RECORDS SUMMARY | 2024-06-24 22:55 | XMS_ITS | Clinical Summary ---
Author Organization [facility] Address [address] [address] Phone Care Team Providers Care Director Of Search Engine Marketing Name Role Phone Elsewhere, Pcp Primary Care Provider Unavailabl e Allergies No known active allergies Medications FLUoxetine (PROzac) 20 MG capsule Take 20 mg by mouth one time a day. Active LOSARTAN POTASSIUM OR Take by mouth. Ac tive HYDROXYZINE HCL OR Take by mouth. Activ e oxyCODONE-acet aminophen (Percocet) 5-325 MG oral tablet Take 1 Tablet by mouth every four hours as needed for Pain. Limit acetaminophen to 4000 mg per day from all sources. 15 Tablet Active Active Problems Problem Noted Date Diagnosed Date Anxiety and depression 04/10/2024 Primary hypertension 07/24/2013 Overview (05/25/2024): Hypertension (HTN) Chronic Hypertriglyceridemia 03/19/2009 Encounters Date Type Department Care Team Description 05/25/2024 1:54 PM GENERAL CAR SUPERVISOR YARD - 05/25/2024 4:48 PM [facility] Emergency [facility] EMERGENCY DEPARTMENT [address] [place] [address] Abbie Reyna, JUAQUIN Closed trimalleolar fracture of right ankle, initial encounter (Primary Dx); Ankle dislocation, right, initial encounter; Fall, initial encounter Discharge Disposition: Home and/or Self Care 05/25/2024 Travel from Last 3 Months Social History Tobacco Use Types Packs/Day Years Used Date Smoking Tobacco: Never Assessed EH IP Custom IPV Answer Date Recorded Do you feel UNSAFE in any of your personal relationships with your family members or any other acquaintances? No 2024 Comments Unknown Sex and Gender Information Value Date Recorded Sex Assigned at Not on file Legal Sex Female 1:53 PM GENERAL CAR SUPERVISOR YARD Gender Identity Not on file Sexual Orientation Not on file Last Filed Vital Signs Vital Sign Reading Time Taken Comments Blood Pressure 159/107 05/25/2024 3:20 PM GENERAL CAR SUPERVISOR YARD Pulse 81 05/25/2024 3:20 PM GENERAL CAR SUPERVISOR YARD Temperature 36.9 C (98.4 F) 05/25/2024 1:58 PM GENERAL CAR SUPERVISOR YARD Respiratory Rate 19 05/25/2024 3:20 PM GENERAL CAR SUPERVISOR YARD Oxygen Saturation 97% 05/25/2024 3:20 PM GENERAL CAR SUPERVISOR YARD Inhaled Oxygen Concentration - - Weight 56.7 kg (125 lb) 05/25/2024 1:58 PM GENERAL CAR SUPERVISOR YARD Height - - Body Mass Index - - Plan of Treatment Health Maintenance Due Date Last Done Comments CT Colonography 1973 Cervical Cancer Screening 1975 Cologuard 1975 Colonoscopy 1973 Colorectal Cancer Screening 1973 FIT/FOBT 1973 Last pap w/ HPV Testing 1973 Last pap w/o HPV Testing 1973 Sigmoidoscopy 1973 Hepatitis B Vaccine (Standin g Order) (1 of 3 - 19+ 3-dose series) 1992 PERTUSSIS (Standing Order) 1992 TETANUS (Standing Order) 1992 MAMMO,SCREEN 09/07/2018 09/07/2017 Pneumococcal Vaccine: 50+ yr s (Standing Order) (1 of 1 - PCV) 2023 Shingrix (Zoster recombinant ) vaccine (Standing Order) (1 of 2) 2023 COVID-19 Vaccine ( - 2023-2 5 season) 2023 Influenza Vaccine Seasonal (Standing Order) (#1) 2023 HPV Vaccine (Standing Order) Aged Out No longer eligible based on patient's age to complete this topic Procedures Procedure Name Priority Date/Time Associated Diagnosis Comments APPLY LOWER LEG SPLINT 05/25/2024 3:30 PM GENERAL CAR SUPERVISOR YARD Closed trimalleolar fracture of right ankle, initial encounter CLOSED RX TRIMALLEOLAR FX,MANIP 05/25/2024 3:30 PM GENERAL CAR SUPERVISOR YARD Closed trimalleolar fracture of right ankle, initial encounter XR ANKLE RIGHT 3 OR MORE VIEWS STAT 05/25/2024 3:28 PM GENERAL CAR SUPERVISOR YARD Closed trimalleolar fracture of right ankle, initial encounter XR C ARM FLUORO STAT 05/25/2024 3:15 PM GENERAL CAR SUPERVISOR YARD Closed trimalleolar fracture of right ankle, initial encounter MOD SED OTHER PHYS/QHP EACH ADDL 15 MINS 05/25/2024 2:37 PM GENERAL CAR SUPERVISOR YARD Closed trimalleolar fracture of right ankle, initial encounter Ankle dislocation, right, initial encounter MOD SED OTHER PHYS/QHP EACH ADDL 15 MINS 05/25/2024 2:37 PM GENERAL CAR SUPERVISOR YARD Closed trimalleolar fracture of right ankle, initial encounter Ankle dislocation, right, initial encounter MOD SED OTHER PHYS/QHP INITIAL 15 MINS 5/> YRS 05/25/2024 2:37 PM GENERAL CAR SUPERVISOR YARD Closed trimalleolar fracture of right ankle, initial encounter Ankle dislocation, right, initial encounter XR ANKLE RIGHT 2 VIEWS STAT 05/25/2024 2:33 PM GENERAL CAR SUPERVISOR YARD Closed trimalleolar fracture of right ankle, initial encounter from Last 3 Months Results * CLOSED RX TRIMALLEOLAR FX,MANIP, APPLY LOWER LEG SPLINT (05/25/2024 3:30 PM GENERAL CAR SUPERVISOR YARD) Narrative Abbie Reyna PA-C - 05/25/2024 3:30 PM GENERAL CAR SUPERVISOR YARD Abbie Reyna PA-C 05/25/2024 4:27 PM Orthopedic Injury Treatment - Fracture Date/Time: 05/25/2024 3:30 PM Performed by: Abbie Reyna PA-C Authorized by: Abbie Reyna PA-C Consent: Consent obtained: Verbal Consent given by: Patient Risks, benefits, and alternatives were discussed: yes Risks discussed: Pain [place] protocol: Patient identity confirmed: Verbally with patient [...] Procedure completion: Tolerated well, no immediate complications us Abbie Reyna PA-C PROCEDURE/MINOR RAMY ORDERAB LES Final Result * XR ANKLE RIGHT 3 OR MORE VIEWS (05/25/2024 3:28 PM GENERAL CAR SUPERVISOR YARD) Anatomical Region Laterality Modality Ankle Radiographic Ursula ging 05/25/2024 3:28 PM GENERAL CAR SUPERVISOR YARD Narrative 05/26/2024 7:44 AM GENERAL CAR SUPERVISOR YARD PROCEDURE: XR ANKLE RIGHT 3 OR MORE [...] MD Report Date: 05/26/2024 7:44 AM Abbie E Maribell PA-C EC DIAGNOSTIC IMAGING ORDER ADAM Final Result * XR C ARM FLUORO (05/25/2024 3:15 PM GENERAL CAR SUPERVISOR YARD) Anatomical Region Laterality Modality Radiographic Ursula ging 05/25/2024 3:05 PM GENERAL CAR SUPERVISOR YARD Narrative 05/26/2024 7:47 AM GENERAL CAR SUPERVISOR YARD PROCEDURE: C-ARM FLUOROSCOPIC SUPPORT HISTORY: fall right [...] Gonsales MD Report Date: 05/26/2024 7:47 AM Abbie E Maribell PA-C EC DIAGNOSTIC IMAGING ORDER ADAM Final Result * MOD SED OTHER PHYS/QHP INITIAL 15 MINS 5/> YRS, MOD SED OTHER PHYS/QHP EACH ADDL 15 MINS, MOD SED OTHER PHYS/QHP EACH ADDL 15 MINS (05/25/2024 2:37 PM GENERAL CAR SUPERVISOR YARD) Narrative Jermaine Lee MD - 05/25/2024 2:37 PM GENERAL CAR SUPERVISOR YARD Jermaine Lee MD 05/25/2024 5:22 PM Moderate Sedation Date/Time: 05/25/2024 2:37 PM Performed by: Jermaine Lee MD Authorized by: Jermaine Lee MD Consent: Consent obtained: Verbal and emergent situation Risks, benefits, and alternatives were discussed: yes Risks discussed: Inadequate sedation and respiratory compromise necessitating ventilatory assistance and intubation Alternatives discussed: Analgesia without sedation [place] protocol: Procedure explained and questions answered to [...] Sedation: Propofol Intra-procedure monitoring: Blood pressure monitoring, brazing machine setter, continuous pulse oximetry, continuous capnometry, frequent LOC [...] Procedure completion: Tolerated well, no immediate complications us Jermaine Lee MD PROCEDURE/MINOR RAMY ORDERABLES Final Result * XR ANKLE RIGHT 2 VIEWS (05/25/2024 2:33 PM GENERAL CAR SUPERVISOR YARD) Anatomical Region Laterality Modality Ankle Radiographic Ursula ging 05/25/2024 2:17 PM GENERAL CAR SUPERVISOR YARD Narrative 05/26/2024 7:38 AM GENERAL CAR SUPERVISOR YARD PROCEDURE: XR ANKLE RIGHT 2 VIEWS. HISTORY: [...] Gonsales MD Report Date: 05/26/2024 7:38 AM Abbie Reyna PA-C EC DIAGNOSTIC IMAGING ORDER ADAM Final Result from Last 3 Months Insurance * Guarantor: Suzanne Duque Account Type Relation to Patient Date of Phone Billing Address Personal/Family Self 1975 [address] [place] [address] [facility] Commercial Address: [place] [id number] [place] [id number] Care Teams Director Of Search Engine Marketing Relationship Specialty Start Date End Date Elsewhere, Pcp PCP - General 05/25/24
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
--- OUTSIDE RECORDS SUMMARY | 2024-06-24 22:56 | XMS_ITS | Clinical Summary ---
Author Organization [facility] Address [address] [facility] [address] Care Team Providers Care Transition Mgr Rn Name Role Phone Roman Patten MD Primary Care Provider [phone] Allergies No known active allergies Medications Metoprolol Succinate (TOPROL XL PO) Take 50 mg by mouth daily Active Losartan Potassium (COZAAR PO) Take 50 mg by mouth daily Active ranitidine (ZANTAC) 150 MG tablet Take 150 mg by mouth 2 times daily as needed for heartburn Active escitalopram (LEXAPRO) 10 MG tabletIndication s:Major depressive disorder, recurrent episode, moderate (H) Take 1.5 tablets (15 mg) by mouth daily 45 tablet 8 Active traZODone (DESYREL) 50 MG tabletIndication s:Insomnia, unspecified type Take 1 tablet (50 mg) by mouth nightly as needed 30 tablet 8 Active Active Problems Problem Noted Date Diagnosed Date CARDIOVASCULAR SCREENING; LDL GOAL LESS THAN 160 02/28/2010 Hypertriglyceridemia 03/19/2009 Family History Medical History Relation Comments C.A.D. Maternal Grandfather Cerebrovascular Disease Maternal Grandfather Depression Maternal Grandfather Suicide Maternal Grandfather Anxiety Disorder Maternal Grandmother Asthma Maternal Grandmother C.A.D. Maternal Grandmother Cerebrovascular Disease Maternal Grandmother Anxiety Disorder Mother Hypertension Mother Substance Abuse Mother Diabetes Paternal Grandmother Relation Status Comments Maternal Grandfather Maternal Grandmother Mother Paternal Grandmother Social History Tobacco Use Types Packs/Day Years Used Date Smoking Tobacco: Former Cigarettes 1 - 02/06/1999 Smokeless Tobacco: Never Alcohol Use Standard Drinks/Week Comments Yes 0 (1 standard drink = 0.6 oz pur e alcohol) social Adolescent Education Answer Date Record ed Getting School Help Needed Not on file 02/14 Comments No Sex and Gender Information Value Date Recorded Sex Assigned at Not on file Legal Sex Female 4:41 AM REGULATORY ANALYST Gender Identity Not on file Sexual Orientation Not on file Last Filed Vital Signs Vital Sign Reading Time Taken Comments Blood Pressure 133/93 07/31/2017 4:00 AM CDT Pulse 80 07/31/2017 4:00 AM CDT Temperature 36.9 C (98.4 F) 07/31/2017 8:14 AM CDT Respiratory Rate 16 07/31/2017 8:14 AM CDT Oxygen Saturation 95% 07/30/2017 6:08 PM CDT Inhaled Oxygen Concentration - - Weight 61.2 kg (135 lb) 07/30/2017 6:08 PM CDT Height 157.5 cm (5' 2) 07/30/2017 6:08 PM CDT Body Mass Index 24.69 07/30/2017 6:08 PM CDT Plan of Treatment Not on file Insurance [place] Advance Directives For more information, please contact: [phone] * Full Code (Latest Code Status on File) Date Activated Date Inactivated Comments 07/30/2017 6:37 PM 07/31/2017 4:21 PM Care Teams Transition Mgr Rn Relationship Specialty Start Date End Date Roman Patten MD PCP - General Family Practice 11/13/13
[2024-06-24 23:00] VITALS: BP 160/98; PULSE 94; RESP 20; TEMP 36.3; O2SAT 99; BMI 21.8
--- NOTE | 2024-06-24 23:06 | CRLHL7_ITS ---
For Patients: As a result of the Century Cures Act, medical imaging exams and procedure reports are released immediately into your electronic medical record. You may view this report before your referring provider. If you have questions, please contact your health care provider. INDICATION: Worsening ankle pain post operative TECHNIQUE: Ankle radiograph 3 views right COMPARISON: None FINDINGS: Bone: Metallic plate ORIF of the distal fibula is noted. ORIF of the medial malleolus with 2 cannulated lag screws are seen. Joint: The ankle mortise joint and the visualized hindfoot joints are unremarkable in appearance. No significant ankle effusion is seen. Soft tissue: Mild soft tissue swelling and edema is noted. No radiopaque foreign bodies are seen. IMPRESSION: 1. No acute osseous injuries or abnormalities are noted. Dictated by Ishaan Landeros MD @ 06/24/2024 11:58:20 PM Dictated by: Ishaan Landeros MD @ 06/24/2024 23:58:26 (Electronically Signed)
--- NOTE | 2024-06-24 23:23 | ED_ITS ---
HPI - General Adult General Date Seen: 06/24/24 Chief complaint: Extremity Pain/Injury, Lower Stated complaint: Ambulance Time Seen by Provider: 06/24/24 22:55 Source: patient and EMS Mode of arrival: EMS Limitations: no limitations History of Present Illness HPI narrative: Patient is a 49-year-old female presenting to emergency department for right ankle pain. One month ago she was seen by [facility] for a right ankle fracture. This occurred when she tripped and fell. She states she ran out of her oxycodone for ankle pain 3 days ago and has since been alternating Tylenol and ibuprofen wit hout any improvement in her pain. States rebound seems to be all overhanging bone can not say where it is worst. I asked her when her surgery was and she is able to tell me that but then did not know in her most recent follow-up was and thought her next appointment was March. After repeat questioning she was able to tell me she saw her orthopedic provider 7 days ago and is scheduled to see them again and a couple weeks. Denies any fevers or chills. She is toe- touch weight-bearing at this time and uses crutches. No other concerns noted. Related Data Previous Rx's ?Medication ?Instructions ?Recorded escitalopram oxalate 10 mg tablet 10 mg PO QDAY #30 tabs 12/06/23 Allergies Allergy/AdvReac Type Severity Reaction Status Date / Time No Known Drug Allergies Allergy Verified 12/06/23 08:16 [facility] Medical History History of hypothyroidism ?Z86.39 - Personal history of other endocrine, nutritional and metabolic disease (ICD-10) Surgical History History of foot surgery ?Z98.890 - Other specified postprocedural states (ICD-10) Hx of hysterectomy ?Z90.710 - Acquired absence of both cervix and uterus (ICD-10) History of surgery on left wrist ?Z98.890 - Other specified postprocedural states (ICD-10) Social History Smoking Status: Former smoker Do you use any of these nicotine containing products: None Second hand tobacco smoke exposure: No How often do you have a drink containing alcohol: never How often do you have six or more drinks on one occasion: Never AUDIT-C Alcohol total score: 0 Non-prescribed substance use: denies use service: No Exam Narrative: Exam Narrative: Const: Well-nourished, Well-developed, crying Eyes: PERRL, no conjunctival injection, and symmetrical lids HENT: Atraumatic external nose and ears. Moist mucous membranes. Neck: Symmetric, trachea midline, No thyromegaly. CVS: Peripheral pulses 2+ and equal in lower extremities RESP: Unlabored respiratory effort. Clear to auscultation bilaterally. GI: Nontender/Nondistended, No rebound or guarding. MSK: Swelling to the right ankle, well-healing surgical scars Skin: Warm, Dry. No rashes or lesions. Neuro: Normal Muscle tone, No focal neurological deficits. Psych: Awake, Alert, & Oriented x3. Const: Vital Signs, click to edit/add: Vital Signs - 24 hr 06/24/24 23:00 Temperature 97.3 F L Pulse Rate [Pulse Oximeter] 94 Respiratory Rate 20 Blood Pressure [Ri ght Upper Arm] 160/98 H Pulse Oximetry 99 Oxygen Delivery Me thod Room Air Course Vital Signs Vital signs: Initial Vital Signs Temperature 97.3 F L 06/24/24 23:00 Temperature Source Temporal Artery Scan 06/24/24 23:00 Pulse Rate 94 06/24/24 23:00 Respiratory Rate 20 06/24/24 23:00 Blood Pressure 160/98 H 06/24/24 23:00 Blood Pressure Mean 118 H 06/24/24 23:00 Blood Pressure Position Supine 06/24/24 23:00 Pulse Oximetry 99 06/24/24 23:00 Oxygen Delivery Method Room Air 06/24/24 23:00 Vital Signs Temperature 97.3 F L 06/24/24 23:00 Pulse Rate 94 06/24/24 23:00 Respiratory Rate 20 06/24/24 23:00 Blood Pressure 160/98 H 06/24/24 23:00 Pulse Oximetry 99 06/24/24 23:00 Oxygen Delivery Method Room Air 06/24/24 23:00 Temperature 97.3 F L 06/24/24 23:00 Pulse Rate 94 06/24/24 23:00 Respiratory Rate 20 06/24/24 23:00 Blood Pressure 160/98 H 06/24/24 23:00 Pulse Oximetry 99 06/24/24 23:00 Oxygen Delivery Method Room Air 06/24/24 23:00 Medical Decision Making MDM Narrative Medical decision making narrative: Patient is a 49-year-old female presenting for right ankle pain. On my exam she appears to have well-healing surgical scars and my concern for osteomyelitis is very low at this time. She does have a known alcohol abuse history and was seen here previously with an alcohol level of 0.56. This does raise my concern that she possibly was drinking and fell again. Will do an x-ray to re-evaluate her ankle. She has had a 138 oxycodone in the past month. X-ray shows no acute osseous injury. At this time I will give her for oxycodone via [facility] plane informed her she will not be receiving any more narcotics from our emergency department for this injury. She will need to speak to her orthopedic surgeon. Imaging Data Right ankle x-ray: Attestation: I have reviewed the pertinent imaging results. Radiologist's impression: 1. No acute osseous injuries or abnormalities are noted. Dictated by Ishaan Landeros MD @ 06/24/2024 11:58:20 PM Discharge Plan Discharge Clinical Impression: Ankle fracture Qualifiers: Encounter type: sequela Fracture type: closed Laterality: right Qualified Code(s): S82.891S - Other fracture of right lower leg, sequela Patient Disposition: Home, Self-Care Condition: Stable Instructions: Ankle Fracture (ED) Additional Instructions: rotary planer set up operator the oxycodone from instymeds. For any further narcotic pain medicine y ou will need to follow-up with orthopedic surgeon. He will not be able to receive any further narcotics from this emergency department. Also take Tylenol and ibuprofen for pain Prescriptions: No Action escitalopram oxalate 10 mg tablet 10 mg PO QDAY Qty: 30 2RF Follow Up/Referrals: Ravi Smith MD [Primary Care Provider] - Stand Alone Forms: OB10 Info Instructions
--- OUTSIDE RECORDS SUMMARY | 2024-06-24 23:49 | XMS_ITS | Encounter Summary ---
Author Organization [place] Address [address] [facility] [place] [address] Care Team Providers Care Warper Tender Name Role Phone Roman Patten MD Primary Care Provider [phone] Encounter Details Date Type Department Care Team (Late st Contact Info) Description 07/30/2017 Telephone [facility] Behavioral Health Intake [address] [place] [phone] Generic, Behavioral Intake, Social History Tobacco Use Types Packs/Day Years Used Date Smoking Tobacco: Former Cigarettes 1 - 02/06/1999 Smokeless Tobacco: Never Alcohol Use Standard Drinks/Week Comments Yes 0 (1 standard drink = 0.6 oz pur e alcohol) social Comments No Sex and Gender Information Value Date Recorded Sex Assigned at Not on file Legal Sex Female 4:41 AM STEPDOWN NURSE Gender Identity Not on file Sexual Orientation Not on file documented as of this encounter Miscellaneous Notes * Telephone Encounter - Karen Everett - 07/30/2017 11:26 AM CDT S: The pt was brought to [facility] ED B: The pt reports increased anxiety. [...] 20 under the care of Dr Baker. production dispatcher notified of admission at 3:50pm documented in this encounter Plan of Treatment Not on file documented as of this encounter Visit Diagnoses Not on filedocumented in this encounter Care Teams Warper Tender Relationship Specialty Start Date End Date Roman Patten MD PCP - General Family Practice 11/13/13 documented as of this encounter
--- OUTSIDE RECORDS SUMMARY | 2024-06-24 23:49 | XMS_ITS | Clinical Summary ---
Author Organization [employer] [facility] Address [address] [place] [id number] Care Team Providers Care Back End Engineer Name Role Phone Jennifer Benitez MD Primary [...] Department Care Team Description 05/28/2024 1:15 PM MEDICAL RECORDS COORDINATOR Office Visit [facility] [address] [place] [address] Manjeet Atwood MD Preoperative Exam (DOS: 06/03/2024, right ankle, Dr. Brooks, [facility]) 05/27/2024 Travel 04/10/2024 3:15 PM MEDICAL RECORDS COORDINATOR Office Visit [facility] [address] [place] [address] Abbie Sanders, DO Follow Up (Has started losartan, has not yet started prozac, will start today.) 04/10/2024 Travel 04/10/2024 Telephone [facility] [address] [place] [address] Jennifer Benitez MD Appointment 03/25/2024 3:30 PM MEDICAL RECORDS COORDINATOR Office Visit [facility] [address] [place] [address] Jennifer Benitez MD Establish Care; Medication Management [...] on file Legal Sex Female 6:20 AM MEDICAL RECORDS COORDINATOR Gender Identity Not on file Sexual Orientation [...] Comments Blood Pressure 146/80 05/28/2024 1:39 PM MEDICAL RECORDS COORDINATOR Pulse 81 05/28/2024 1:25 PM MEDICAL RECORDS COORDINATOR Temperature 35.7 C (96.3 F) 11/19/2022 8:14 PM CDT Respiratory Rate 18 11/19/2022 8:14 PM CDT Oxygen Saturation 96% 05/28/2024 1:25 PM MEDICAL RECORDS COORDINATOR Inhaled Oxygen Concentration - - Weight 63 kg (139 lb) 05/28/2024 1:25 PM MEDICAL RECORDS COORDINATOR Height 157.5 cm (5' 2) 05/28/2024 1:25 PM MEDICAL RECORDS COORDINATOR Body Mass Index 25.42 05/28/2024 1:25 PM MEDICAL RECORDS COORDINATOR Plan of Treatment Health Maintenance Due Date [...] COMP METABOLIC PANEL Routine 04/10/2024 3:47 PM MEDICAL RECORDS COORDINATOR HTN (hypertension) CBC WITH AUTO DIFFERENTIAL Routine 04/10/2024 3:47 PM MEDICAL RECORDS COORDINATOR HTN (hypertension) TSH WITH REFLEX Routine 04/10/2024 3:47 PM MEDICAL RECORDS COORDINATOR Elevated TSH LIPID PANEL W REFLEX MEASURED LDL Routine 04/10/2024 3:47 PM MEDICAL RECORDS COORDINATOR Screening cholesterol level ANTI HCV Routine 04/10/2024 3:47 PM MEDICAL RECORDS COORDINATOR Encounter for HCV screening test for low risk patient HIV-1 RNA, REAL TIME PCR (NON-GRAPH) Routine 04/10/2024 3:47 PM MEDICAL RECORDS COORDINATOR Encounter for screening for HIV HEMOGLOBIN A1C MONITORING (POCT) Routine 04/10/2024 3:46 PM MEDICAL RECORDS COORDINATOR Screening for diabetes mellitus from Last 3 Months Results * HIV-1 RNA, REAL TIME PCR (NON-GRAPH) [facility] (04/10/2024 3:47 PM MEDICAL RECORDS COORDINATOR) Pathologist [facility] HIV 1 RNA, QN PCR NOT DETECTED NOT DETECTED copies/mL [facility] LOG10 HIV 1 RNA, QN PCR NOT DETECTED NOT DETECTED Log copies/mL [facility] Comment: This test was performed using Real-Time Polymerase Chain Reaction. Reportable Range: 20 copies/mL to 10,000,000 copies/mL (1.30 log copies/mL to 7.00 log copies/mL). Blood BLOOD SPECIMEN / Unknown 04/10/2024 3:47 PM MEDICAL RECORDS COORDINATOR 04/10/2024 3:47 PM MEDICAL RECORDS COORDINATOR Jennifer Benitez MD LABORATORY Fi nal Result [employer] [facility] [address] [place] [address], [facility] [address] [place] [address] * TSH WITH REFLEX (04/10/2024 3:47 PM MEDICAL RECORDS COORDINATOR) Pathologist [facility] TSH W/REFLEX TO FT4 3.46 mIU/L [facility] Comment: Reference Range > or = 20 Years 0.40-4.50 Ranges First trimester 0.26-2.66 Second trimester 0.55-2.73 Third trimester 0.43-2.91 Blood BLOOD SPECIMEN / Unknown 04/10/2024 3:47 PM MEDICAL RECORDS COORDINATOR 04/10/2024 3:47 PM MEDICAL RECORDS COORDINATOR Jennifer Benitez MD CHEMISTRY Fi nal Result [employer] [facility] [address] [place] [address], [facility] [facility] [address] [place] [address] * (ABNORMAL) LIPID PANEL W REFLEX MEASURED LDL (04/10/2024 3:47 PM MEDICAL RECORDS COORDINATOR) Pathologist [facility] CHOLESTEROL, TOTAL 243(H) <200 mg/dL [employer] HDL CHOLESTEROL 97 > OR = 50 mg/dL [employer] TRIGLYCERIDES 115 <150 mg/dL [employer] LDL-CHOLESTEROL 123(H) mg/dL (calc) [employer] Comment: Reference range: <100 Desirable range <100 mg/dL for primary prevention; <70 mg/dL for patients with CHD or diabetic patients with > or = 2 CHD risk factors. LDL-C is now calculated using the Victor Hugo calculation, which is a validated novel method providing better accuracy than the Friedewald equation in the estimation of LDL-C. Kushal SS et al. SARINA. 2013;310(67): 8355-4636 (http://education.Xuehuile/faq/FLG818) CHOL/HDLC RATIO 2.5 <5.0 (calc) [employer] NON HDL CHOLESTEROL 146(H) <130 mg/dL (calc) [facility] Comment: For patients with diabetes plus 1 major ASCVD risk factor, treating to a non-HDL-C goal of <100 mg/dL (LDL-C of <70 mg/dL) is considered a therapeutic option. Blood BLOOD SPECIMEN / Unknown 04/10/2024 3:47 PM MEDICAL RECORDS COORDINATOR 04/10/2024 3:47 PM MEDICAL RECORDS COORDINATOR Jennifer Benitez MD CHEMISTRY Fi nal Result [employer] [facility] [address] [place] [address], [place] [phone] [employer] [facility] [address] [place] [address] * ANTI HCV (04/10/2024 3:47 PM MEDICAL RECORDS COORDINATOR) Pathologist [facility] HEPATITIS C ANTIBODY NON-REACTI VE NON-REACT DULCE [employer] Comment: HCV antibody was non-reactive. There is no laboratory evidence of HCV infection. In most cases, no further action is required. However, if recent HCV exposure is suspected, a test for HCV RNA (test code 99584) is suggested. For additional information please refer to http://education.Farseer/faq/CUE80o0 (This link is being provided for informational/ educational purposes only.) Blood BLOOD SPECIMEN / Unknown 04/10/2024 3:47 PM MEDICAL RECORDS COORDINATOR 04/10/2024 3:47 PM MEDICAL RECORDS COORDINATOR Jennifer Benitez MD SEND OUTS Fi nal Result [employer] [facility] [address] [place] [address], [employer] [address] [place] [address] * (ABNORMAL) CBC AND DIFFERENTIAL (04/10/2024 3:47 PM MEDICAL RECORDS COORDINATOR) Pathologist [facility] WHITE BLOOD CELL COUNT 7.8 3.8 - [...] BLOOD SPECIMEN / Unknown 04/10/2024 3:47 PM MEDICAL RECORDS COORDINATOR 04/10/2024 3:47 PM MEDICAL RECORDS COORDINATOR Jennifer Benitez MD HEMATOLOGY Fi nal Result [facility] [facility] [address] [place] [address], [employer] [facility] [address] [place] [address] * (ABNORMAL) COMP METABOLIC PANEL (04/10/2024 3:47 PM MEDICAL RECORDS COORDINATOR) [facility] GLUCOSE 100(H) 65 - 99 mg/dL [employer] Comment: Fasting reference interval For [...] BLOOD SPECIMEN / Unknown 04/10/2024 3:47 PM MEDICAL RECORDS COORDINATOR 04/10/2024 3:47 PM MEDICAL RECORDS COORDINATOR Jennifer Benitez MD CHEMISTRY Fi nal Result [employer] [facility] [address] [place] [address], [facility] [address] [place] [address] * HEMOGLOBIN A1C MONITORING (POCT) (04/10/2024 3:46 PM MEDICAL RECORDS COORDINATOR) POC HEMOGLOBIN A1C 4.8 <6.0 % OF TOTAL HGB [facility] Comment: Any point of care results exhibiting inconsistency with the patient's clinical status should be repeated using a different testing method. Blood BLOOD SPECIMEN / Unknown 04/10/2024 3:46 PM MEDICAL RECORDS COORDINATOR 04/10/2024 3:46 PM MEDICAL RECORDS COORDINATOR Jennifer Benitez MD CHEMISTRY Fi nal Result [facility] [address] [place] [address], [place] [phone] [facility] [address] [place] [phone] from Last 3 Months Insurance [id number] [facility] [id number] [employer] [place] [employer] [facility] CMS Advance Directives * Full Code (Latest Code Status on File) Date Activated Date Inactivated Comments 04/03/2019 6:13 AM 04/03/2019 2:55 PM Care Teams Back End Engineer Relationship Specialty Start Date End Date Jennifer Benitez MD [address] [address] PCP - General Family Practice 03/25/24
--- OUTSIDE RECORDS SUMMARY | 2024-06-24 23:49 | XMS_ITS | Clinical Summary ---
Author Organization [place] Address [address] [facility] [place] [address] Care Team Providers Care Land Management Forester Name Role Phone Roman Patten MD Primary Care Provider [phone] Allergies No known active allergies Medications Metoprolol [...] on file Legal Sex Female 4:41 AM MEDICAL APPOINTMENT SCHEDULER Gender Identity Not on file Sexual Orientation [...] Treatment Not on file [place] Advance Directives For more information, please contact: [phone] * Full Code (Latest Code Status on File) Date Activated Date Inactivated Comments 07/30/2017 6:37 PM 07/31/2017 4:21 PM Care Teams Land Management Forester Relationship Specialty Start Date End Date Roman Patten MD PCP - General Family Practice 11/13/13
--- OUTSIDE RECORDS SUMMARY | 2024-06-24 23:49 | XMS_ITS | Encounter Summary ---
Author Organization [facility] Address [address] [address] Phone Care Team Providers Care Charcoal Burner Beehive Kiln Name Role Phone Elsewhere, Pcp Primary Care Provider Unavailabl e Reason for Visit * Reason Comments Trauma Encounter Details Date Type Department Care Team (Late st Contact Info) Description 05/25/2024 1:54 PM REGIONAL ACCOUNT DIRECTOR - 05/25/2024 4:48 PM REGIONAL ACCOUNT DIRECTOR Emergency [facility] EMERGENCY DEPARTMENT [address] [place] [phone] Abbie Reyna, PALady [address] [place], [place] [address] Closed trimalleolar fracture of right ankle, initial [...] on file Legal Sex Female 1:53 PM REGIONAL ACCOUNT DIRECTOR Gender Identity Not on file Sexual Orientation Not on file documented as of this encounter Last Filed Vital Signs Vital Sign Reading Time Taken Comments Blood Pressure 159/107 05/25/2024 3:20 PM REGIONAL ACCOUNT DIRECTOR Pulse 81 05/25/2024 3:20 PM REGIONAL ACCOUNT DIRECTOR Temperature 36.9 C (98.4 F) 05/25/2024 1:58 PM REGIONAL ACCOUNT DIRECTOR Respiratory Rate 19 05/25/2024 3:20 PM REGIONAL ACCOUNT DIRECTOR Oxygen Saturation 97% 05/25/2024 3:20 PM REGIONAL ACCOUNT DIRECTOR Inhaled Oxygen Concentration - - Weight 56.7 kg (125 lb) 05/25/2024 1:58 PM REGIONAL ACCOUNT DIRECTOR Height - - Body Mass Index - - documented in this encounter Functional Status * Patient's Vision Adequate to Safely Complete Daily Activities Answer Date of Assessment Author Yes 05/25/2024 2:10 PM REGIONAL ACCOUNT DIRECTOR Haritha Garzon RN * Patient's Memory Adequate to Safely Complete Daily Activities Answer Date of Assessment Author Yes 05/25/2024 2:10 PM REGIONAL ACCOUNT DIRECTOR Haritha Garzon RN documented as of this encounter Mental Status * Patient's Judgment Adequate to Safely Complete Daily Activities Answer Entry Date Author Yes 05/25/2024 2:10 PM REGIONAL ACCOUNT DIRECTOR Haritha Garzon RN documented in this encounter Discharge Instructions * Discharge Instructions* Abbie Reyna PA-C - 05/25/2024 4:17 PM REGIONAL ACCOUNT DIRECTOR Take 600 mg of ibuprofen with food [...] softener as this can cause constipation. Call [facility] orthopedic on Monday to make a follow-up appointment this week. You will likely need surgical fixation of the right ankle. Return to the emergency department if worsening symptoms, uncontrolled pain, blue discoloration of the toes, numbness or any other medical concerns. ONAL ACCOUNT DIRECTOR ONAL ACCOUNT DIRECTOR ONAL ACCOUNT DIRECTOR documented in this encounter Medications at Time [...] Means Destination Comment s Home and/or Self Snf documented in this encounter Progress Notes * Rusty Esteves HELICOPTER DISPATCHER - 05/25/2024 3:09 PM CST Procedural Sedation Assist Preoxygenation: 100 Suction and bag valve mask at bedside SpO2: 100 EtCO2: 43 Interventions needed: no Was SpO2 <85% for more than 3 minutes?: no ONAL ACCOUNT DIRECTOR documented in this encounter ED Notes * Jeny Yost RN - 05/25/2024 3:37 PM CST Bed: ED 4 Expected date: 05/25/24 Expected time: Means of arrival: Comments: Hold for B ONAL ACCOUNT DIRECTOR * Jermaine Lee MD - 05/25/2024 2:37 [...] and intubation Alternatives discussed: Analgesia without sedation [place] protocol: Procedure explained and questions answered to [...] Sedation: Propofol Intra-procedure monitoring: Blood pressure monitoring, director of cardiac rehabilitation, continuous pulse oximetry, continuous capnometry, frequent LOC [...] immediate complications Jermaine Lee MD 05/25/24 1722 ONAL ACCOUNT DIRECTOR * Abbie Reyna PA-C - 05/25/2024 2:26 [...] alternatives were discussed: yes Risks discussed: Pain [place] protocol: Patient identity confirmed: Verbally with patient [...] town and says she will follow-up with [facility] orthopedics in [place]. We discussed she will likely need surgical [...] initial encounter Abbie Reyna PA-C 05/25/24 1627 ONAL ACCOUNT DIRECTOR * Haritha Garzon RN - 05/25/2024 1:55 PM CST Pt arrived by [facility] from Home alone with complaints of right ankle pain.. EMS Significant Findings: Patient slipped on the ice, states she heard her right ankle crack. No other injuries, did not hit her head. Ankle obviously deformed EMS Interventions: splint Additional Information: patient not from the area- in the [place] ONAL ACCOUNT DIRECTOR * Jeny Yost RN - 05/25/2024 1:54 PM CST Bed: ED 4 Expected date: 05/25/24 Expected time: 1:46 PM Means of arrival: Ambulance Comments: [facility] [address]52 Dislocated or fractured ankle ONAL ACCOUNT DIRECTOR documented in this encounter Plan of Treatment Not on file documented as of this encounter Procedures Procedure Name Priority Date/Time Associated Diagnosis Comments APPLY LOWER LEG SPLINT 05/25/2024 3:30 PM REGIONAL ACCOUNT DIRECTOR Closed trimalleolar fracture of right ankle, initial encounter CLOSED RX TRIMALLEOLAR FX,MANIP 05/25/2024 3:30 PM REGIONAL ACCOUNT DIRECTOR Closed trimalleolar fracture of right ankle, initial encounter XR ANKLE RIGHT 3 OR MORE VIEWS STAT 05/25/2024 3:28 PM REGIONAL ACCOUNT DIRECTOR Closed trimalleolar fracture of right ankle, initial encounter XR C ARM FLUORO STAT 05/25/2024 3:15 PM REGIONAL ACCOUNT DIRECTOR Closed trimalleolar fracture of right ankle, initial encounter MOD SED OTHER PHYS/QHP EACH ADDL 15 MINS 05/25/2024 2:37 PM REGIONAL ACCOUNT DIRECTOR Closed trimalleolar fracture of right ankle, initial encounter Ankle dislocation, right, initial encounter MOD SED OTHER PHYS/QHP EACH ADDL 15 MINS 05/25/2024 2:37 PM REGIONAL ACCOUNT DIRECTOR Closed trimalleolar fracture of right ankle, initial encounter Ankle dislocation, right, initial encounter MOD SED OTHER PHYS/QHP INITIAL 15 MINS 5/> YRS 05/25/2024 2:37 PM REGIONAL ACCOUNT DIRECTOR Closed trimalleolar fracture of right ankle, initial encounter Ankle dislocation, right, initial encounter XR ANKLE RIGHT 2 VIEWS STAT 05/25/2024 2:33 PM REGIONAL ACCOUNT DIRECTOR Closed trimalleolar fracture of right ankle, initial encounter documented in this encounter Results * CLOSED RX TRIMALLEOLAR FX,MANIP, APPLY LOWER LEG SPLINT (05/25/2024 3:30 PM REGIONAL ACCOUNT DIRECTOR) Narrative Abbie Reyna PA-C - 05/25/2024 3:30 PM REGIONAL ACCOUNT DIRECTOR Abbie Reyna PA-C 05/25/2024 4:27 PM Orthopedic Injury Treatment - Fracture Date/Time: 05/25/2024 3:30 PM Performed by: Abbie Reyna PA-C Authorized by: Abbie Reyna PA-C Consent: Consent obtained: Verbal Consent given by: Patient Risks, benefits, and alternatives were discussed: yes Risks discussed: Pain [place] protocol: Patient identity confirmed: Verbally with patient [...] 3 OR MORE VIEWS (05/25/2024 3:28 PM REGIONAL ACCOUNT DIRECTOR) Anatomical Region Laterality Modality Ankle Radiographic Ursula ging 05/25/2024 3:28 PM REGIONAL ACCOUNT DIRECTOR Narrative 05/26/2024 7:44 AM REGIONAL ACCOUNT DIRECTOR PROCEDURE: XR ANKLE RIGHT 3 OR MORE [...] XR C ARM FLUORO (05/25/2024 3:15 PM REGIONAL ACCOUNT DIRECTOR) Anatomical Region Laterality Modality Radiographic Ursula ging 05/25/2024 3:05 PM REGIONAL ACCOUNT DIRECTOR Narrative 05/26/2024 7:47 AM REGIONAL ACCOUNT DIRECTOR PROCEDURE: C-ARM FLUOROSCOPIC SUPPORT HISTORY: fall right [...] EACH ADDL 15 MINS (05/25/2024 2:37 PM REGIONAL ACCOUNT DIRECTOR) Narrative Jermaine Lee MD - 05/25/2024 2:37 PM REGIONAL ACCOUNT DIRECTOR Jermaine Lee MD 05/25/2024 5:22 PM Moderate Sedation Date/Time: 05/25/2024 2:37 PM Performed by: Jermaine Lee MD Authorized by: Jermaine Lee MD Consent: Consent obtained: Verbal and emergent situation Risks, benefits, and alternatives were discussed: yes Risks discussed: Inadequate sedation and respiratory compromise necessitating ventilatory assistance and intubation Alternatives discussed: Analgesia without sedation [place] protocol: Procedure explained and questions answered to [...] Sedation: Propofol Intra-procedure monitoring: Blood pressure monitoring, director of cardiac rehabilitation, continuous pulse oximetry, continuous capnometry, frequent LOC [...] ANKLE RIGHT 2 VIEWS (05/25/2024 2:33 PM REGIONAL ACCOUNT DIRECTOR) Anatomical Region Laterality Modality Ankle Radiographic Ursula ging 05/25/2024 2:17 PM REGIONAL ACCOUNT DIRECTOR Narrative 05/26/2024 7:38 AM REGIONAL ACCOUNT DIRECTOR PROCEDURE: XR ANKLE RIGHT 2 VIEWS. HISTORY: [...] 05/25/24 at 1430 Given 05/25/2024 2:25 PM REGIONAL ACCOUNT DIRECTOR 50 mcg fentaNYL (Sublimaze) injection ADS OVERRIDE 1 dose, Starting on 05/25/24 at 1423, Until 05/25/24 at 1425 ibuprofen (Advil) tablet 600 mg 600 mg, Oral, ONCE, 1 dose, On 05/25/24 at 1630 Given 05/25/2024 4:20 PM REGIONAL ACCOUNT DIRECTOR 600 mg oxyCODONE (Roxicodone) immediate release tablet 5 mg 5 mg, Oral, ONCE, 1 dose, On 05/25/24 at 1630 Given 05/25/2024 4:21 PM REGIONAL ACCOUNT DIRECTOR 5 mg propofol (Diprivan) 200 MG/20ML injection IV Push, One-Step Narrator Medication, Starting on 05/25/24 at 0148, Until 05/25/24 at 1448 Given 05/25/2024 2:48 PM REGIONAL ACCOUNT DIRECTOR 60 mg Given 05/25/2024 1:48 AM REGIONAL ACCOUNT DIRECTOR 60 mg propofol (Diprivan) 200 MG/20ML injection IV Push, One-Step Narrator Medication, Starting on 05/25/24 at 1450, Until 05/25/24 at 1450 Given 05/25/2024 2:50 PM REGIONAL ACCOUNT DIRECTOR 40 mg propofol (Diprivan) 200 MG/20ML injection IV Push, One-Step Narrator Medication, Starting on 05/25/24 at 1551, Until 05/25/24 at 1451 Given 05/25/2024 2:51 PM REGIONAL ACCOUNT DIRECTOR 40 mg propofol (Diprivan) 200 MG/20ML injection IV Push, One-Step Narrator Medication, Starting on 05/25/24 at 1453, Until 05/25/24 at 1453 Given 05/25/2024 2:53 PM REGIONAL ACCOUNT DIRECTOR 30 mg documented in this encounter Historical Medications * This list may reflect changes made after this encounter. HYDROXYZINE HCL OR Take by mouth. LOSARTAN POTASSIUM OR Take by mouth. FLUoxetine (PROzac) 20 MG capsule Take 20 mg by mouth one time a day. added in this encounter Active and Recently Administered Medications Times are shown in REGIONAL ACCOUNT DIRECTOR. Scheduled Medication Order 05/23/2024 05/24/2024 05/25/2024 fentaNYL [...] 05/25/2024 documented in this encounter Care Teams Charcoal Burner Beehive Kiln Relationship Specialty Start Date End Date Elsewhere, Pcp PCP - General 05/25/24 documented as of this encounter
--- OUTSIDE RECORDS SUMMARY | 2024-06-24 23:49 | XMS_ITS | Clinical Summary ---
Author Organization [facility] Address [address] [place] [address] Care Team Providers Care Equipment Maintenance Engineer Name Role Phone Roman Patten MD Primary Care Provider +[phone] Source Comments You are receiving this document as you are listed as the primary care provider,follow-up provider, or the patient has been referred to you for consultation.This is in compliance with the Medicare and[facility] EHR Incentive Program,which states Providers who transition their patient to another setting of careor provider of care or refers their patient to another provider of care shouldprovide summary care record for each transition of care or referral. [facility] Allergies No known active allergies Medications hydrOXYzine [...] Comments Blood Pressure 122/86 05/09/2019 10:48 AM DATA CENTER TECHNICIAN Pulse 70 03/25/2019 4:28 PM DATA CENTER TECHNICIAN Temperature 37 C (98.6 F) 09/24/2013 3:01 PM CDT Respiratory Rate - - Oxygen Saturation - - Inhaled Oxygen Concentration - - Weight 56.7 kg (125 lb) 08/14/2020 2:11 PM CDT Height 157.5 cm (5' 2) 03/25/2019 4:28 PM DATA CENTER TECHNICIAN Body Mass Index 22.86 03/25/2019 4:28 PM DATA CENTER TECHNICIAN Plan of Treatment Health Maintenance Due Date [...] 4:04 PM CDT) Case Report Pap Case: [id number] Authorizing Provider: Oneyda Bautista MD Collected: 11/21/2018 04:04 PM Ordering Location: [place] [address] Received: 11/21/2018 04:23 PM Obstetrics/Gynec ology First Screen: Theresa Hdz CT (ASCP) Specimen: Pap Test, Routine, Cervix/Endocervix 11/27/2018 6:39 AM CDT [facility] Pap Specimen Adequacy Satisfactory for evaluation, endocervical/stewart sformation zone component present. 11/27/2018 6:39 AM CDT [facility] Pap Interpretation Negative for intraepithelial lesion or malignancy (NILM). 11/27/2018 6:39 AM CDT [facility] at 0639 CDT Pap Other Findings Endometrial cells in a woman >=45 years of age. 11/27/2018 6:39 AM CDT [facility] Gross Description The specimen is received in SurePath fixative and properly labeled. 1 Pap-stained SurePath slide is prepared. 11/27/2018 6:39 AM CDT [facility] Pap Disclaimer The Pap test is a screening test designed to aid in the detection of cervical cancer and its precursor lesions. It is not a diagnostic procedure and should not be used as the sole means of detecting cervical cancer. Both false-positive and false-negative reports may occur. 11/27/2018 6:39 AM CDT [facility] Embedded Images 6:39 AM CDT [facility] Other Specimen Type ENTIRE ENDOCERVIX / Unknown 11/21/2018 4:04 PM CDT 11/21/2018 4:23 PM CDT Comment:LMP: Patient's last menstrual period was 11/17/2018. us Oneyda Bautista MD LAB PATHOLOGY Final Result [facility] [address] [place] [address], [facility] from Last 3 Months or Most Recently Relevant to Health Maintenance Care Teams Equipment Maintenance Engineer Relationship Specialty Start Date End Date Roman Patten MD [address] [facility] [address] [place] [id number] PCP - General 06/12/13
--- OUTSIDE RECORDS SUMMARY | 2024-06-24 23:49 | XMS_ITS | Clinical Summary ---
Author Organization [facility] Address [address] [place] [address] Care Team Providers Care Spindle Repairer Name Role Phone Elsewhere, Pcp Primary Care Provider Unavailabl e Source Comments Patient records contain information from all sites at [facility]. For routine questions regarding patient records, call [phone] during business hours, M-F 8:00 AM - 5:00 PM Central Time. Record requests for emergency care only can be directed to [phone] at any time.[facility] Allergies No known active allergies Medications cholecalciferol [...] on file Legal Sex Female 11:15 AM EXPANDER Gender Identity Female 07/14/2017 9:05 AM CDT [...] Keene D.O. LAB BLOOD ADD-ON Final Result [facility] [address] [place] [address], [facility] NPRG [facility] [address] [place] [address] * BI Breast Screening Bilateral (09/07/2017 7:50 [...] Recently Relevant to Health Maintenance Care Teams Spindle Repairer Relationship Specialty Start Date End Date Elsewhere, Pcp PCP - General Family Medicine 06/12/20
--- OUTSIDE RECORDS SUMMARY | 2024-06-24 23:49 | XMS_ITS | Encounter Summary ---
Author Organization [facility] Address [address] [place] [address] Care Team Providers Care Bulker Name Role Phone Roman Patten MD Primary Care Provider +[phone] Encounter Details Date Type Department Care Team (Late st Contact Info) Description 01/21/2016 Orders Only [facility] [address] [facility] [place] [address] David Martini, DPM [address] [facility] [place] [id number] Social History Tobacco Use Types Packs/Day Years [...] documented as of this encounter Care Teams Bulker Relationship Specialty Start Date End Date Roman Patten MD [address] [facility] [place] [address] PCP - General 06/12/13 documented as of this encounter
--- OUTSIDE RECORDS SUMMARY | 2024-06-24 23:49 | XMS_ITS | Encounter Summary ---
Author Organization [facility] Address [address] [address] Phone Care Team Providers Care Beauty School Instructor Name Role Phone Elsewhere, Pcp Primary Care [...] on file Legal Sex Female 1:53 PM RECEIVING MANAGER Gender Identity Not on file Sexual Orientation Not on file documented as of this encounter Functional Status * Patient's Vision Adequate to Safely Complete Daily Activities Answer Date of Assessment Author Yes 05/25/2024 2:10 PM RECEIVING MANAGER Haritha Garzon RN * Patient's Memory Adequate to Safely Complete Daily Activities Answer Date of Assessment Author Yes 05/25/2024 2:10 PM RECEIVING MANAGER Haritha Garzon RN documented as of this encounter Mental Status * Patient's Judgment Adequate to Safely Complete Daily Activities Answer Entry Date Author Yes 05/25/2024 2:10 PM Haritha Cabrera RN documented in this encounter Plan of Treatment Not on file documented as of this encounter Visit Diagnoses Not on filedocumented in this encounter Care Teams Beauty School Instructor Relationship Specialty Start Date End Date Elsewhere, Pcp PCP - General 05/25/24 documented as of this encounter
--- OUTSIDE RECORDS SUMMARY | 2024-06-24 23:49 | XMS_ITS | Clinical Summary ---
Author Organization [facility] Address [address] [address] Phone Care Team Providers Care Silk Winding Machine Operator Name Role Phone Elsewhere, Pcp Primary Care [...] Department Care Team Description 05/25/2024 1:54 PM LOCAL HAZMAT DRIVER - 05/25/2024 4:48 PM [facility] Emergency [facility] EMERGENCY DEPARTMENT [address] [place] [address] Abbie Reyna, JUAQUIN Closed trimalleolar [...] on file Legal Sex Female 1:53 PM LOCAL HAZMAT DRIVER Gender Identity Not on file Sexual Orientation Not on file Last Filed Vital Signs Vital Sign Reading Time Taken Comments Blood Pressure 159/107 05/25/2024 3:20 PM LOCAL HAZMAT DRIVER Pulse 81 05/25/2024 3:20 PM LOCAL HAZMAT DRIVER Temperature 36.9 C (98.4 F) 05/25/2024 1:58 PM LOCAL HAZMAT DRIVER Respiratory Rate 19 05/25/2024 3:20 PM LOCAL HAZMAT DRIVER Oxygen Saturation 97% 05/25/2024 3:20 PM LOCAL HAZMAT DRIVER Inhaled Oxygen Concentration - - Weight 56.7 kg (125 lb) 05/25/2024 1:58 PM LOCAL HAZMAT DRIVER Height - - Body Mass Index - [...] APPLY LOWER LEG SPLINT 05/25/2024 3:30 PM LOCAL HAZMAT DRIVER Closed trimalleolar fracture of right ankle, initial encounter CLOSED RX TRIMALLEOLAR FX,MANIP 05/25/2024 3:30 PM LOCAL HAZMAT DRIVER Closed trimalleolar fracture of right ankle, initial encounter XR ANKLE RIGHT 3 OR MORE VIEWS STAT 05/25/2024 3:28 PM LOCAL HAZMAT DRIVER Closed trimalleolar fracture of right ankle, initial encounter XR C ARM FLUORO STAT 05/25/2024 3:15 PM LOCAL HAZMAT DRIVER Closed trimalleolar fracture of right ankle, initial encounter MOD SED OTHER PHYS/QHP EACH ADDL 15 MINS 05/25/2024 2:37 PM LOCAL HAZMAT DRIVER Closed trimalleolar fracture of right ankle, initial encounter Ankle dislocation, right, initial encounter MOD SED OTHER PHYS/QHP EACH ADDL 15 MINS 05/25/2024 2:37 PM LOCAL HAZMAT DRIVER Closed trimalleolar fracture of right ankle, initial encounter Ankle dislocation, right, initial encounter MOD SED OTHER PHYS/QHP INITIAL 15 MINS 5/> YRS 05/25/2024 2:37 PM LOCAL HAZMAT DRIVER Closed trimalleolar fracture of right ankle, initial encounter Ankle dislocation, right, initial encounter XR ANKLE RIGHT 2 VIEWS STAT 05/25/2024 2:33 PM LOCAL HAZMAT DRIVER Closed trimalleolar fracture of right ankle, initial encounter from Last 3 Months Results * CLOSED RX TRIMALLEOLAR FX,MANIP, APPLY LOWER LEG SPLINT (05/25/2024 3:30 PM LOCAL HAZMAT DRIVER) Narrative Abbie Reyna PA-C - 05/25/2024 3:30 PM LOCAL HAZMAT DRIVER Abbie Reyna PA-C 05/25/2024 4:27 PM Orthopedic Injury Treatment - Fracture Date/Time: 05/25/2024 3:30 PM Performed by: Abbie Reyna PA-C Authorized by: Abbie Reyna PA-C Consent: Consent obtained: Verbal Consent given by: Patient Risks, benefits, and alternatives were discussed: yes Risks discussed: Pain [place] protocol: Patient identity confirmed: Verbally with patient [...] 3 OR MORE VIEWS (05/25/2024 3:28 PM LOCAL HAZMAT DRIVER) Anatomical Region Laterality Modality Ankle Radiographic Ursula ging 05/25/2024 3:28 PM LOCAL HAZMAT DRIVER Narrative 05/26/2024 7:44 AM LOCAL HAZMAT DRIVER PROCEDURE: XR ANKLE RIGHT 3 OR MORE [...] XR C ARM FLUORO (05/25/2024 3:15 PM LOCAL HAZMAT DRIVER) Anatomical Region Laterality Modality Radiographic Ursula ging 05/25/2024 3:05 PM LOCAL HAZMAT DRIVER Narrative 05/26/2024 7:47 AM LOCAL HAZMAT DRIVER PROCEDURE: C-ARM FLUOROSCOPIC SUPPORT HISTORY: fall right [...] EACH ADDL 15 MINS (05/25/2024 2:37 PM LOCAL HAZMAT DRIVER) Narrative Jermaine Lee MD - 05/25/2024 2:37 PM LOCAL HAZMAT DRIVER Jermaine Lee MD 05/25/2024 5:22 PM Moderate Sedation Date/Time: 05/25/2024 2:37 PM Performed by: Jermaine Lee MD Authorized by: Jermaine Lee MD Consent: Consent obtained: Verbal and emergent situation Risks, benefits, and alternatives were discussed: yes Risks discussed: Inadequate sedation and respiratory compromise necessitating ventilatory assistance and intubation Alternatives discussed: Analgesia without sedation [place] protocol: Procedure explained and questions answered to [...] Sedation: Propofol Intra-procedure monitoring: Blood pressure monitoring, school bus monitor, continuous pulse oximetry, continuous capnometry, frequent [...] ANKLE RIGHT 2 VIEWS (05/25/2024 2:33 PM LOCAL HAZMAT DRIVER) Anatomical Region Laterality Modality Ankle Radiographic Ursula ging 05/25/2024 2:17 PM LOCAL HAZMAT DRIVER Narrative 05/26/2024 7:38 AM LOCAL HAZMAT DRIVER PROCEDURE: XR ANKLE RIGHT 2 VIEWS. HISTORY: [...] Billing Address Personal/Family Self 1975 [address] [place] [address] [facility] Care Teams Silk Winding Machine Operator Relationship Specialty Start Date End Date Elsewhere, Pcp PCP - General 05/25/24
--- OUTSIDE RECORDS SUMMARY | 2024-06-24 23:49 | XMS_ITS | Encounter Summary ---
Author Organization [facility] Address [address] [place] [address] Care Team Providers Care Supply Chain Project Manager Name Role Phone Roman Patten MD Primary Care Provider [phone] Encounter Details Date Type Department Care Team (Late st Contact Info) Description 07/23/2015 Orders Only [facility] [address] [facility] [place] [address] David Martini, DPM [address] [facility] [address] [place] [id number] Social History Tobacco Use Types Packs/Day Years [...] documented as of this encounter Care Teams Supply Chain Project Manager Relationship Specialty Start Date End Date Roman Patten MD [address] [facility] [place] [address] PCP - General 06/12/13 documented as of this encounter
== END 2024-06-25 00:09 | disposition home or self-care (01) ==
PROVIDERS: Emergency Provider Student in an Organized Health Care Education/Training Program; PCP Family Medicine
DX: S82.891D Other fracture of right lower leg, subsequent encounter for closed fracture with routine healing (principal)
CPT/HCPCS: 73610; 99283

== ENCOUNTER 2024-07-15 13:30 | Outpatient (CLI) | payer BC, SELFPAY | END 2024-07-15 13:31 | disposition home or self-care (01) | LOC: AMB 07-16 11:08 | PROVIDERS: PCP Family Medicine; Visit Provider Family Medicine | DX: R45.851 Suicidal ideations (principal) | CPT/HCPCS: A0425; A0429 ==

== ENCOUNTER 2024-07-15 14:28 | Emergency (ER) | payer BC, SELFPAY ==
[2024-07-15] VITALS (18 sets, daily range): BP systolic 107–156; BP diastolic 66–124; PULSE 81–114; RESP 4–20; TEMP 36.4; O2SAT 95–100; BMI 26.3
--- OUTSIDE RECORDS SUMMARY | 2024-07-15 14:30 | XMS_ITS | Clinical Summary ---
Author Organization [facility] Address [address] [place] [address] Care Team Providers Care Shuttle Car Operator Name Role Phone Elsewhere, Pcp Primary Care Provider Unavailabl e Source Comments Patient records contain information from all sites at [facility]. For routine questions regarding patient records, call [phone] during business hours, M-F 8:00 AM - 5:00 PM Central Time. Record requests for emergency care only can be directed to [phone] at any time.[facility] Allergies No known active allergies [...] on file Legal Sex Female 11:15 AM SUPPORT SERVICES MANAGER Gender Identity Female 07/14/2017 9:05 AM CDT [...] Keene D.O. LAB BLOOD ADD-ON Final Result [facility] [address] [place] [address], [facility] NPRG [facility] [address] [place] [address] * BI Breast Screening Bilateral (09/07/2017 7:50 [...] Recently Relevant to Health Maintenance Care Teams Shuttle Car Operator Relationship Specialty Start Date End Date Elsewhere, Pcp PCP - General Family Medicine 06/12/20
--- OUTSIDE RECORDS SUMMARY | 2024-07-15 14:30 | XMS_ITS | Clinical Summary ---
Author Organization [facility] Address [address] [address] Phone Care Team Providers Care Foam Tank Laminator Name Role Phone Elsewhere, Pcp Primary Care [...] Department Care Team Description 05/25/2024 1:54 PM BUILDING MAINTENANCE WORKER - 05/25/2024 4:48 PM [facility] Emergency [facility] EMERGENCY DEPARTMENT [address] [place] [address] Abbie Reyna, JUAQUIN Closed trimalleolar [...] on file Legal Sex Female 1:53 PM BUILDING MAINTENANCE WORKER Gender Identity Not on file Sexual Orientation Not on file Last Filed Vital Signs Vital Sign Reading Time Taken Comments Blood Pressure 159/107 05/25/2024 3:20 PM BUILDING MAINTENANCE WORKER Pulse 81 05/25/2024 3:20 PM BUILDING MAINTENANCE WORKER Temperature 36.9 C (98.4 F) 05/25/2024 1:58 PM BUILDING MAINTENANCE WORKER Respiratory Rate 19 05/25/2024 3:20 PM BUILDING MAINTENANCE WORKER Oxygen Saturation 97% 05/25/2024 3:20 PM BUILDING MAINTENANCE WORKER Inhaled Oxygen Concentration - - Weight 56.7 kg (125 lb) 05/25/2024 1:58 PM BUILDING MAINTENANCE WORKER Height - - Body Mass Index - [...] APPLY LOWER LEG SPLINT 05/25/2024 3:30 PM BUILDING MAINTENANCE WORKER Closed trimalleolar fracture of right ankle, initial encounter CLOSED RX TRIMALLEOLAR FX,MANIP 05/25/2024 3:30 PM BUILDING MAINTENANCE WORKER Closed trimalleolar fracture of right ankle, initial encounter XR ANKLE RIGHT 3 OR MORE VIEWS STAT 05/25/2024 3:28 PM BUILDING MAINTENANCE WORKER Closed trimalleolar fracture of right ankle, initial encounter XR C ARM FLUORO STAT 05/25/2024 3:15 PM BUILDING MAINTENANCE WORKER Closed trimalleolar fracture of right ankle, initial encounter MOD SED OTHER PHYS/QHP EACH ADDL 15 MINS 05/25/2024 2:37 PM BUILDING MAINTENANCE WORKER Closed trimalleolar fracture of right ankle, initial encounter Ankle dislocation, right, initial encounter MOD SED OTHER PHYS/QHP EACH ADDL 15 MINS 05/25/2024 2:37 PM BUILDING MAINTENANCE WORKER Closed trimalleolar fracture of right ankle, initial encounter Ankle dislocation, right, initial encounter MOD SED OTHER PHYS/QHP INITIAL 15 MINS 5/> YRS 05/25/2024 2:37 PM BUILDING MAINTENANCE WORKER Closed trimalleolar fracture of right ankle, initial encounter Ankle dislocation, right, initial encounter XR ANKLE RIGHT 2 VIEWS STAT 05/25/2024 2:33 PM BUILDING MAINTENANCE WORKER Closed trimalleolar fracture of right ankle, initial encounter from Last 3 Months Results * CLOSED RX TRIMALLEOLAR FX,MANIP, APPLY LOWER LEG SPLINT (05/25/2024 3:30 PM BUILDING MAINTENANCE WORKER) Narrative Abbie Reyna PA-C - 05/25/2024 3:30 PM BUILDING MAINTENANCE WORKER Abbie Reyna PA-C 05/25/2024 4:27 PM Orthopedic Injury Treatment - Fracture Date/Time: 05/25/2024 3:30 PM Performed by: Abbie Reyna PA-C Authorized by: Abbie Reyna PA-C Consent: Consent obtained: Verbal Consent given by: Patient Risks, benefits, and alternatives were discussed: yes Risks discussed: Pain [place] protocol: Patient identity confirmed: Verbally with patient [...] 3 OR MORE VIEWS (05/25/2024 3:28 PM BUILDING MAINTENANCE WORKER) Anatomical Region Laterality Modality Ankle Radiographic Ursula ging 05/25/2024 3:28 PM BUILDING MAINTENANCE WORKER Narrative 05/26/2024 7:44 AM BUILDING MAINTENANCE WORKER PROCEDURE: XR ANKLE RIGHT 3 OR MORE [...] Date: 05/26/2024 7:44 AM Procedure Note Patrice Gosnales MD - 05/26/2024 PROCEDURE: XR ANKLE RIGHT [...] XR C ARM FLUORO (05/25/2024 3:15 PM BUILDING MAINTENANCE WORKER) Anatomical Region Laterality Modality Radiographic Ursula ging 05/25/2024 3:05 PM BUILDING MAINTENANCE WORKER Narrative 05/26/2024 7:47 AM BUILDING MAINTENANCE WORKER PROCEDURE: C-ARM FLUOROSCOPIC SUPPORT HISTORY: fall right [...] EACH ADDL 15 MINS (05/25/2024 2:37 PM BUILDING MAINTENANCE WORKER) Narrative Jermaine Lee MD - 05/25/2024 2:37 PM BUILDING MAINTENANCE WORKER Jermaine Lee MD 05/25/2024 5:22 PM Moderate Sedation Date/Time: 05/25/2024 2:37 PM Performed by: Jermaine Lee MD Authorized by: Jermaine Lee MD Consent: Consent obtained: Verbal and emergent situation Risks, benefits, and alternatives were discussed: yes Risks discussed: Inadequate sedation and respiratory compromise necessitating ventilatory assistance and intubation Alternatives discussed: Analgesia without sedation [place] protocol: Procedure explained and questions answered to [...] Sedation: Propofol Intra-procedure monitoring: Blood pressure monitoring, cardiac monitor technician, continuous pulse oximetry, continuous capnometry, frequent LOC [...] ANKLE RIGHT 2 VIEWS (05/25/2024 2:33 PM BUILDING MAINTENANCE WORKER) Anatomical Region Laterality Modality Ankle Radiographic Ursula ging 05/25/2024 2:17 PM BUILDING MAINTENANCE WORKER Narrative 05/26/2024 7:38 AM BUILDING MAINTENANCE WORKER PROCEDURE: XR ANKLE RIGHT 2 VIEWS. HISTORY: [...] Billing Address Personal/Family Self 1975 [address] [place] [address] [facility] Commercial Address: [place] [address] [place] [address] Care Teams Foam Tank Laminator Relationship Specialty Start Date End Date Elsewhere, Pcp PCP - General 05/25/24
--- OUTSIDE RECORDS SUMMARY | 2024-07-15 14:31 | XMS_ITS | Encounter Summary ---
Author Organization [facility] Address [address] [place] [address] Care Team Providers Care Hospital Administrative Assistant Name Role Phone Roman Patten MD Primary Care Provider +1 [phone] Encounter Details Date Type Department Care Team (Late st Contact Info) Description 07/23/2015 Orders Only [facility] [address] [place] [place] [address] David Martini, DPM [address] [facility] [address] [place] [id number] Social History Tobacco Use Types Packs/Day Years [...] documented as of this encounter Care Teams Hospital Administrative Assistant Relationship Specialty Start Date End Date Roman Patten MD [address] [place] [address] PCP - General 06/12/13 documented as of this encounter
--- OUTSIDE RECORDS SUMMARY | 2024-07-15 14:31 | XMS_ITS | Encounter Summary ---
Author Organization [facility] Address [address] [place] [address] Care Team Providers Care Stereo Equipment Salesperson Name Role Phone Roman Patten MD Primary Care Provider +[phone] Encounter Details Date Type Department Care Team (Late st Contact Info) Description 01/21/2016 Orders Only [facility] [address] [place] [address] David Martini, DPM [address] [facility] [place] [id number] Social History Tobacco Use Types Packs/Day Years [...] documented as of this encounter Care Teams Stereo Equipment Salesperson Relationship Specialty Start Date End Date Roman Patten MD [address] [facility] [place] [address] PCP - General 06/12/13 documented as of this encounter
--- OUTSIDE RECORDS SUMMARY | 2024-07-15 14:31 | XMS_ITS | Clinical Summary ---
Author Organization [facility] Address [address] [place] [address] Care Team Providers Care Bullet Maker Name Role Phone Roman Patten MD Primary Care Provider [phone] Source Comments You are receiving this document as you are listed as the primary care provider,follow-up provider, or the patient has been referred to you for consultation.This is in compliance with the Medicare and[facility] Campus[facility] EHR Incentive Program,which states Providers who transition their patient to another setting of careor provider of care or refers their patient to another provider of care shouldprovide summary care record for each transition of care or referral. [facility] Allergies No known active allergies Medications hydrOXYzine [...] Comments Blood Pressure 122/86 05/09/2019 10:48 AM POLISHER APPRENTICE Pulse 70 03/25/2019 4:28 PM POLISHER APPRENTICE Temperature 37 C (98.6 F) 09/24/2013 3:01 PM CDT Respiratory Rate - - Oxygen Saturation - - Inhaled Oxygen Concentration - - Weight 56.7 kg (125 lb) 08/14/2020 2:11 PM CDT Height 157.5 cm (5' 2) 03/25/2019 4:28 PM POLISHER APPRENTICE Body Mass Index 22.86 03/25/2019 4:28 PM POLISHER APPRENTICE Plan of Treatment Health Maintenance Due Date [...] Procedure Name Priority Date/Time Associated Diagnosis Comments CYTOLOGY (PAP) Routine 11/21/2018 4:04 PM CDT Screening for cervical cancer from Last 3 Months or Most Recently Relevant to Health Maintenance Results * PAP Test (11/21/2018 4:04 PM CDT) Case Report Pap Case: [id number] Authorizing Provider: Oneyda Bautista MD Collected: 11/21/2018 04:04 PM Ordering Location: [place] [address] Received: 11/21/2018 04:23 PM Obstetrics/Gynec ology First Screen: Theresa Hdz CT (ASCP) Specimen: Pap Test, Routine, Cervix/Endocervix 11/27/2018 6:39 AM CDT [facility] Pap Specimen Adequacy Satisfactory for evaluation, endocervical/stewart sformation zone component present. 11/27/2018 6:39 AM CDT [facility] Pap Interpretation Negative for intraepithelial lesion or malignancy (NILM). 11/27/2018 6:39 AM CDT [facility] at 0639 CDT Pap Other Findings Endometrial cells in a woman >=45 years of age. 11/27/2018 6:39 AM CDT [facility] Gross Description The specimen is received in SurePath fixative and properly labeled. 1 Pap-stained SurePath slide is prepared. 11/27/2018 6:39 AM CDT [facility] Pap Disclaimer The Pap test is a screening test designed to aid in the detection of cervical cancer and its precursor lesions. It is not a diagnostic procedure and should not be used as the sole means of detecting cervical cancer. Both false-positive and false-negative reports may occur. 11/27/2018 6:39 AM CDT [facility] Embedded Images 6:39 AM CDT [facility] Other Specimen Type ENTIRE ENDOCERVIX / Unknown 11/21/2018 4:04 PM CDT 11/21/2018 4:23 PM CDT Comment:LMP: Patient's last menstrual period was 11/17/2018. us Oneyda Bautista MD LAB PATHOLOGY Final Result [facility] [address] [place] [address], [facility] from Last 3 Months or Most Recently Relevant to Health Maintenance Care Teams Bullet Maker Relationship Specialty Start Date End Date Roman Patten MD [address] [place] [id number] PCP - General 06/12/13
--- OUTSIDE RECORDS SUMMARY | 2024-07-15 14:31 | XMS_ITS | Encounter Summary ---
Author Organization [place] Address [address] [facility] [place] [address] Care Team Providers Care Street Contractor Name Role Phone Roman Patten MD Primary Care Provider [phone] Encounter Details Date Type Department Care Team (Late st Contact Info) Description 07/30/2017 Telephone [facility] Intake [address] [place] [phone] Generic, Behavioral Intake, Social History Tobacco Use Types Packs/Day Years Used Date Smoking Tobacco: Former Cigarettes 1 - 02/06/1999 Smokeless Tobacco: Never Alcohol Use Standard Drinks/Week Comments Yes 0 (1 standard drink = 0.6 oz pur e alcohol) social Comments No Sex and Gender Information Value Date Recorded Sex Assigned at Not on file Legal Sex Female 4:41 AM WOUND CARE CENTER CONSULTANT Gender Identity Not on file Sexual Orientation Not on file documented as of this encounter Miscellaneous Notes * Telephone Encounter - Karen Everett - 07/30/2017 11:26 AM CDT S: The pt was brought to [facility] ED B: The pt reports increased anxiety. [...] 20 under the care of Dr Baker. worship leader notified of admission at 3:50pm documented in this encounter Plan of Treatment Not on file documented as of this encounter Visit Diagnoses Not on filedocumented in this encounter Care Teams Street Contractor Relationship Specialty Start Date End Date Roman Patten MD PCP - General Family Practice 11/13/13 documented as of this encounter
--- OUTSIDE RECORDS SUMMARY | 2024-07-15 14:31 | XMS_ITS | Clinical Summary ---
Author Organization [place] Address [address] [facility] [place] [address] Care Team Providers Care Multiple Punch Press Operator Name Role Phone Roman Patten MD Primary Care Provider [phone] Allergies No known active allergies Medications Metoprolol [...] on file Legal Sex Female 4:41 AM LEADERSHIP DEVELOPMENT INSTRUCTOR Gender Identity Not on file Sexual Orientation [...] Treatment Not on file [place] Advance Directives For more information, please contact: [phone] * Full Code (Latest Code Status on File) Date Activated Date Inactivated Comments 07/30/2017 6:37 PM 07/31/2017 4:21 PM Care Teams Multiple Punch Press Operator Relationship Specialty Start Date End Date Roman Patten MD PCP - General Family Practice 11/13/13
--- OUTSIDE RECORDS SUMMARY | 2024-07-15 14:31 | XMS_ITS | Clinical Summary ---
Author Organization [employer] [facility] [employer] [facility] Address [address] [place] [id number] Care Team Providers Care Internal Audit Consultant Name Role Phone Jennifer Benitez MD [...] Department Care Team Description 05/28/2024 1:15 PM NUCLEAR MEDICINE TECHNICIAN Office Visit [facility] [address] [place], [place] [id number] Manjeet Atwood MD Preoperative Exam (DOS: 06/03/2024, right ankle, Dr. Brooks, [facility]) 05/27/2024 Travel from Last 3 Months Immunizations Immunization Administration Dates Next Due Influenza, IIV3 (Age [...] times a weeks about 3 drinks (vodka), [facility] outpatient PHQ-2 Answer Date Recorded PHQ-2 TOTAL [...] on file Legal Sex Female 6:20 AM NUCLEAR MEDICINE TECHNICIAN Gender Identity Not on file Sexual Orientation [...] Comments Blood Pressure 146/80 05/28/2024 1:39 PM NUCLEAR MEDICINE TECHNICIAN Pulse 81 05/28/2024 1:25 PM NUCLEAR MEDICINE TECHNICIAN Temperature 35.7 C (96.3 F) 11/19/2022 8:14 PM CDT Respiratory Rate 18 11/19/2022 8:14 PM CDT Oxygen Saturation 96% 05/28/2024 1:25 PM NUCLEAR MEDICINE TECHNICIAN Inhaled Oxygen Concentration - - Weight 63 kg (139 lb) 05/28/2024 1:25 PM NUCLEAR MEDICINE TECHNICIAN Height 157.5 cm (5' 2) 05/28/2024 1:25 PM NUCLEAR MEDICINE TECHNICIAN Body Mass Index 25.42 05/28/2024 1:25 PM NUCLEAR MEDICINE TECHNICIAN Plan of Treatment Health Maintenance Due Date Last Done Comments HIV for age 15-65 1988 Pneumococcal series for age 50+ (1 of 2 - PCV) 1992 Colonoscopy through age 75 2018 Mammogram for age 45-75 2018 Zoster (shingles) series for age 50+ (1 of 2) 2023 COVID-19 vaccine series ( - season) 2023 Influenza Vaccine (#1) 2023 03/17/2003 Depression screening for age 12+ 03/25/2025 03/25/2024, 03/18/2024, 03/15/2024, Additional history exists BMI (ht and wt on same day) for age 18+ 05/28/2025 05/28/2024, 06/11/2019, 07/01/2016, Additional history exists Lipids for age 45-75 04/10/2029 04/10/2024 Tetanus booster 12/14/2031 12/13/2021 Tdap Completed 12/13/2021 Hepatitis C screening for ag e 18-79 Completed 04/10/2024 Procedures Procedure Name Priority Date/Time Associated Diagnosis Comments ANTI HCV Routine 04/10/2024 3:47 PM NUCLEAR MEDICINE TECHNICIAN Encounter for HCV screening test for low risk patient LIPID PANEL W REFLEX MEASURED LDL Routine 04/10/2024 3:47 PM NUCLEAR MEDICINE TECHNICIAN Screening cholesterol level from Last 3 Months or Most Recently Relevant to Health Maintenance Results * (ABNORMAL) LIPID PANEL W REFLEX MEASURED LDL (04/10/2024 3:47 PM NUCLEAR MEDICINE TECHNICIAN) CHOLESTEROL, TOTAL 243(H) <200 mg/dL [facility] HDL CHOLESTEROL 97 > OR = 50 mg/dL [facility] TRIGLYCERIDES 115 <150 mg/dL [facility] LDL-CHOLESTEROL 123(H) mg/dL (calc) [facility] Comment: Reference range: <100 Desirable range <100 mg/dL for primary prevention; <70 mg/dL for patients with CHD or diabetic patients with > or = 2 CHD risk factors. LDL-C is now calculated using the Kushal-Arroyo calculation, which is a validated novel method providing better accuracy than the Friedewald equation in the estimation of LDL-C. Kushal SS et al. SARINA. 2013;310(19): 3424-9517 (http://education.UnLtdWorld/faq/UTH908) CHOL/HDLC RATIO 2.5 <5.0 (calc) [facility] NON HDL CHOLESTEROL 146(H) <130 mg/dL (calc) [facility] Comment: For patients with diabetes plus 1 major ASCVD risk factor, treating to a non-HDL-C goal of <100 mg/dL (LDL-C of <70 mg/dL) is considered a therapeutic option. Blood BLOOD SPECIMEN / Unknown 04/10/2024 3:47 PM NUCLEAR MEDICINE TECHNICIAN 04/10/2024 3:47 PM NUCLEAR MEDICINE TECHNICIAN Jennifer Benitez MD CHEMISTRY Fi nal Result Performing Organization Address City/[facility]/ZIP Co de Phone Number [facility] [address] [place] [address], [place] [phone] [facility] [address] [place] [address] * ANTI HCV (04/10/2024 3:47 PM NUCLEAR MEDICINE TECHNICIAN) HEPATITIS C ANTIBODY NON-REACTI VE NON-REACT [facility] Comment: HCV antibody was non-reactive. There is no laboratory evidence of HCV infection. In most cases, no further action is required. However, if recent HCV exposure is suspected, a test for HCV RNA (test code 87975) is suggested. For additional information please refer to http://education.BinWise/faq/UTK86m9 (This link is being provided for informational/ educational purposes only.) Blood BLOOD SPECIMEN / Unknown 04/10/2024 3:47 PM NUCLEAR MEDICINE TECHNICIAN 04/10/2024 3:47 PM NUCLEAR MEDICINE TECHNICIAN Jennifer Benitez MD SEND OUTS Fi nal Result Performing Organization Address [facility] Co de Phone Number [facility] [address] [place] [address], [facility] [address] [place] [phone] from Last 3 Months or Most Recently Relevant to Health Maintenance Insurance MEDICA PASSPORT MEDICA PAS[employer]ORT BLUE ADVANTAGE [facility] Advance Directives * Full Code (Latest Code Status on File) Date Activated Date Inactivated Comments 04/03/2019 6:13 AM 04/03/2019 2:55 PM Care Teams Internal Audit Consultant Relationship Specialty Start Date End Date Jennifer Benitez MD [address] [facility] [place] [address] PCP - General Family Practice 03/25/24
--- NOTE | 2024-07-15 14:35 | ED_ITS ---
HPI - Psych General Time Seen by Provider: 15:13 Date Seen: 07/15/24 Chief Complaint: Psychiatric Problem/Disorder Stated Complaint: mental Illness Time Seen by Provider: 07/15/24 14:35 Source: patient, RN notes reviewed and old records reviewed Mode of arrival: EMS Limitations: no limitations History of Present Illness HPI Narrative: Suzanne is a 49 year old female with history of right fracture dislocation of her right ankle in May who comes to the ER from EMS with a law enforcement hold for evaluation of holding a knife to her throat. Suzanne states that she has been dealing with significant right leg pain after her injury in May And could not take it anymore today. She denies wanting to hurt herself for any suicidal thoughts. She is mainly concerned about her ankle pain today. Patient was noted to be watching the polar plunge in [place] when she slipped on the ice causing a tri-malleolar fracture dislocation of the right ankle. She was seen, splinted and given oxycodone for discomfort. [facility] repaired her ankle 10 days later and gave her percocet for pain. Suzanne notes that she has an addictive personality and did not want to be on oxycodone and thus, has been using tramadol for pain. Suzanne notes that she occasionally has a better day but for the most part, has been in constant pain since the surgery. She notes the pain is on the top of her foot and radiates to the front of her lower leg. She has no calf pain and denies any shortness of breath. She notes that she has been in contact with [facility] but really has not gotten any answers. She will be seeing them in person on the or the day after tomorrow. She does not really think that wearing her splint helps or makes the pain worse. She continues to have swelling in the area. She also has pain over the lateral aspect of the fibula. Again, patient is adamant that she did not want to kill herself but merely wanted to be heard. She does not think people believe her that she is in this much pain. Patient also notes that she really has not had anything to eat over the last 72 hours. She states that nothing tastes good. She denies abdominal pain vomiting or nausea. She has not had any diarrhea. She denies fever or chills. She denies any difficulty with breathing. She denies taking any other medications that she is not prescribed today. Related Data Home Medications ?Medication ?Instructions ?Recorded ?Confirmed aspirin 325 mg tablet 325 mg PO DAILY 07/15/24 07/15/24 fluoxetine 10 mg capsule 10 mg PO DAILY 07/15/24 07/15/24 losartan 50 mg tablet mg PO 07/15/24 tramadol 50 mg tablet 50 mg PO Q4-6H PRN pain 07/15/24 07/15/24 Previous Rx's ?Medication ?Instructions ?Recorded escitalopram oxalate 10 mg tablet 10 mg PO QDAY #30 tabs 12/06/23 Allergies Allergy/AdvReac Type Severity Reaction Status Date / Time No Known Drug Allergies Allergy Verified 07/15/24 15:01 Review of Systems Status of ROS: Reports: 10 or more systems reviewed and unremarkable except as noted in History and below Const: Reports: fatigue; Denies: fever or chills Eyes: Denies: change in vision ENMT: Denies: throat pain, neck pain or nasal congestion Cardio: Denies: chest pain, swelling of feet/ankles, lightheadedness or shortness of breath with exertion Resp: Denies: shortness of breath or cough GI: Reports: nausea; Denies: abdominal pain, vomiting or diarrhea : Denies: painful urination or urinary frequency Musculo: Reports: extremity pain and extremity swelling; Denies: neck pain Integ/Breast: Denies: rash Endo: Reports: fatigue PFSH PFSH Medical History History of hypothyroidism ?Z86.39 - Personal history of other endocrine, nutritional and metabolic disease (ICD-10) Surgical History History of foot surgery ?Z98.890 - Other specified postprocedural states (ICD-10) Hx of hysterectomy ?Z90.710 - Acquired absence of both cervix and uterus (ICD-10) History of surgery on left wrist ?Z98.890 - Other specified postprocedural states (ICD-10) Social History Smoking Status: Former smoker Do you use any of these nicotine containing products: None Second hand tobacco smoke exposure: No How often do you have a drink containing alcohol: never How often do you have six or more drinks on one occasion: Never AUDIT-C Alcohol total score: 0 Non-prescribed substance use: denies use service: No Exam Narrative: Exam Narrative: Alert and oriented. Tearful without tears. Very dramatic in appearance. Eyes are clear. Face symmetrical. Mentation normal. No pressured speech. Lips are dry. Neck is supple. Heart with regular rate and rhythm and lungs are clear to auscultation. Abdomen soft. Patient is very thin. She has resolving bruises on her left deltoid her left elbow and her left knee. She has very subtle swelling of the anterior of her right foot and her ankle. She has well- healed surgical wounds on her lateral lower leg as well as her medial malleolus. I do not really palpate any specific areas of tenderness. There is no erythema on the foot dorsum or the lower leg. She has full sensation. Const: Vital Signs, click to edit/add: Vital Signs - 24 hr 07/15/24 14:51 07/15/24 15:40 07/15/24 15:59 Temperature 97.6 F Pulse Rate 90 89 Pulse Rate [Pulse Oximeter] 114 H Respiratory Rate 20 Blood Pressure Blood Pressure [Ri ght Upper Arm] 156/124 H Pulse Oximetry 96 96 100 Oxygen Delivery Me thod Room Air 07/15/24 16:00 07/15/24 16:14 07/15/24 16:15 Temperature Pulse Rate 89 88 90 Pulse Rate [Pulse Oximeter] Respiratory Rate 16 18 17 Blood Pressure 107/66 Blood Pressure [Ri ght Upper Arm] Pulse Oximetry 98 99 99 Oxygen Delivery Me thod 07/15/24 16:30 07/15/24 16:45 07/15/24 17:00 Temperature Pulse Rate 86 83 83 Pulse Rate [Pulse Oximeter] Respiratory Rate 6 L 4 L 4 L Blood Pressure Blood Pressure [Ri ght Upper Arm] Pulse Oximetry 96 95 100 Oxygen Delivery Me thod 07/15/24 17:15 07/15/24 17:30 07/15/24 17:45 Temperature Pulse Rate 82 81 84 Pulse Rate [Pulse Oximeter] Respiratory Rate 4 L 12 17 Blood Pressure Blood Pressure [Ri ght Upper Arm] Pulse Oximetry 97 100 100 Oxygen Delivery Me thod 07/15/24 18:00 07/15/24 18:15 07/15/24 18:30 Temperature Pulse Rate 84 89 87 Pulse Rate [Pulse Oximeter] Respiratory Rate 10 L 12 10 L Blood Pressure Blood Pressure [Ri ght Upper Arm] Pulse Oximetry 100 100 99 Oxygen Delivery Me thod 07/15/24 18:45 07/15/24 18:56 07/15/24 18:57 Temperature Pulse Rate 90 89 89 Pulse Rate [Pulse Oximeter] Respiratory Rate 15 16 16 Blood Pressure 139/80 Blood Pressure [Ri ght Upper Arm] Pulse Oximetry 98 100 100 Oxygen Delivery Me thod Documenting provider has reviewed patient's vital signs: yes Course Course ED Course: Patient agreeable to evaluation of her ankle and foot pain. We spoke of her suicidal gesture today and she is stating multiple times that she is not suicidal but just wanted someone to listen to her. She is receptive to blood dr aw today as well . According to chart patient has history of alcohol abuse. Will check alcohol level today as well. I do not note infection signs here today but will check his CBC and CRP. I am worried about a nerve related pain such as complex regional pain syndrome. She does have a follow-up with orthopedics in 48 hours. She is agreeable to Toradol 15 mg IV and oral Flexeril to see if these medications help. Will also give her a L of fluid. Reevaluation(s) Reevaluation #1: I was contacted by nursing staff stating that Suzanne took the muscle relaxer but did not want to have anything else done in 1 to go home. I do not feel that this is reasonable given her presentation with law enforcement and EMS today. She is Receptive to blood draw if we use EMLA as she states that she has a fear of needles after our discussion. She also will have some soup which I am pleased about. Will place order for [facility] Psychiatric services once labs have been returned. Patient is wanting her IV removed which we have done. She really does need IV fluids but instead she is drinking water well without difficulty. She has tolerated her for soup has well as her crackers. Reevaluation #2: patient noted to have elevated alcohol 0.3. She states that she had kicked al coholism to the curb while ago but in the last week has been using because of the pain. She had requested something more for pain after receiving transient relief with Flexeril. I was not aware that she had not received her Toradol. Will switch that to Toradol 15 mg IM. She is agreeable now to Behavioralhealth specialist. She really just wants to go home. Vital Signs Vital signs: Initial Vital Signs Temperature 97.6 F 07/15/24 14:51 Temperature Source Temporal Artery Scan 07/15/24 14:51 Pulse Rate 114 H 07/15/24 14:51 Respiratory Rate 20 07/15/24 14:51 Blood Pressure 156/124 H 07/15/24 14:51 Blood Pressure Mean 134 H 07/15/24 14:51 Blood Pressure Position Supine 07/15/24 14:51 Pulse Oximetry 96 07/15/24 14:51 Oxygen Delivery Method Room Air 07/15/24 14:51 Vital Signs Temperature 97.6 F 07/15/24 14:51 Pulse Rate 114 H 07/15/24 14:51 Respiratory Rate 20 07/15/24 14:51 Blood Pressure 156/124 H 07/15/24 14:51 Pulse Oximetry 96 07/15/24 14:51 Oxygen Delivery Method Room Air 07/15/24 14:51 Temperature 97.6 F 07/15/24 14:51 Pulse Rate 89 07/15/24 18:57 Respiratory Rate 16 07/15/24 18:57 Blood Pressure 139/80 07/15/24 18:56 Pulse Oximetry 100 07/15/24 18:57 Oxygen Delivery Method Room Air 07/15/24 14:51 Medications Administered Medications: Discontinued Medications Generic Name Dose Route Start Last Admin Trade Name Freq PRN Reason Stop Dose Admin Cyclobenzaprine HCl 10 mg 07/15/24 15:32 07/15/24 16:02 Cyclobenzaprine Hcl 10 Mg Tablet PO 07/15/24 15:33 10 mg ONCE ONE Administration Sodium Chloride 500 mls @ 500 mls/hr 07/15/24 15:32 07/15/24 16:07 0.9 % Sodium Chloride 500 Ml IV 07/15/24 16:31 Not Given .Q1H ONE Ketorolac Tromethamine 15 mg 07/15/24 15:32 07/15/24 16:07 Ketorolac 15 Mg/Ml Inj IVP 07/15/24 15:33 Not Given ONCE ONE Ketorolac Tromethamine 15 mg 07/15/24 19:28 07/15/24 19:45 Ketorolac 30 Mg/Ml Inj IM 07/15/24 19:29 15 mg ONCE ONE Administration Lidocaine/Prilocaine 1 applic 07/15/24 16:43 07/15/24 16:58 Lidocaine/Prilocaine 2.5-2.5% Cream TOPICAL 07/15/24 16:44 1 applic ONCE ONE Administration Tramadol HCl 50 mg 07/15/24 19:11 07/15/24 19:35 Tramadol Hcl 50 Mg Tablet PO 07/15/24 19:12 50 mg ONCE ONE Administration MDM - Psych MDM Narrative Medical decision making narrative: 1. Self-harm gesture- patient is adamant that she is not suicidal. Likely complicated by the fact that she is intoxicated at 0.3 . Clinically however she is alert and oriented. I do not feel that she is actively suicidal but did request [facility] psychiatric services for consult. They to agree she is not actively suicidal. 2. Chronic right ankle pain status post injury -X-rays without evidence of hardware alteration. Patient received Flexeril which helped transiently with her discomfort. She is now receiving Toradol and tramadol which she has not taken since yesterday. Addendum: Patient notes considerable relief of her discomfort. She will follow-up with orthopedics on MondayJuly 17 for specialty consultation. 3. History of alcohol abuse- alcohol level 0.3. Patient denies of withdrawal symptoms in the past. Patient is advised to abstain from alcohol. LFTs are mildly elevated but bilirubin is normal. CRP is also normal. 4. Disposition-home at this time. Patient notes that she has 6 more tramadol tablets at home which she may use in combination with ibuprofen up to 3 times a day for pain relief. She should return to the emergency room for worsening symptoms. Medical Records Attestation: I reviewed the patient's medical records. Lab Data Attestation: I reviewed the patient's lab results. Labs: Lab Results 07/15/24 Range/Units 18:10 WBC 6.95 (4.50-11.00) K/uL RBC 4.11 (4.00-5.20) m/uL Hgb 13.4 (12.0-16.0) gm/dL Hct 38.4 (33.0-51.0) % MCV 93 (80-100) fL MCH 33 (26-34) pg MCHC 35 (32-36) gm/dL RDW Coeff of Cally 13.1 (11.5-15.5) % Plt Count 407 (140-440) K/uL Neut % (Auto) 47.2 (42.0-72.0) % Lymph % (Auto) 44.9 H (20-44) % [place] % (Auto) 6.9 (0.0-11.0) % Eos % (Auto) 0.3 (0.0-7.0) % Baso % (Auto) 0.6 (0.0-3.0) % Neut # (Auto) 3.28 (1.7-7.0) K/uL Lymph # (Auto) 3.10 H (0.90-2.90) K/uL [place] # (Auto) 0.50 (0.00-0.90) K/UL Eos # (Auto) 0.02 (0.00-0.50) K/uL Baso # (Auto) 0.04 (0.00-0.30) K/uL Abs Immat Gran (auto) 0.01 (0.00-0.30) K/uL Imm/Tot Granulo (auto) 0.1 % Sodium 138 (135-149) mmol/L Potassium 4.0 (3.6-5.1) mmol/L Chloride 100 (96-114) mmol/L Carbon Dioxide 22 (20-32) mmol/L Anion Gap 16 H (7-15) mEq/L BUN 13 (7-30) mg/dL Creatinine 0.7 (0.5-1.5) mg/dL Estimated Creat Clear 75.20 Estimated GFR 105 ml/min Glucose 87 (60-115) mg/dL Lactate 2.6 H (0.5-1.9) mmol/L Calcium 9.1 (8.4-10.6) mg/dL Total Bilirubin 0.8 (0.1-1.5) mg/dL AST 71 H (12-35) U/L ALT 100 H (4-35) U/L Alkaline Phosphatase 83 (40-150) U/L C-Reactive Protein < 0.5 L (0.5-1.0) mg/dL Total Protein 7.3 (6.0-8.3) g/dL Albumin 4.5 (3.3-5.0) g/dL Ethyl Alcohol 0.30 H (0.01-0.03) % Imaging Data right foot xray: Attestation: I have reviewed the pertinent imaging results. Radiologist's impression: Redemonstrated recent mildly displaced comminuted distal right fibular fracture and medial malleolus status post ORIF of the right distal tibia and fibula. The hardware appears intact without evidence failure. No bony callus formation suggestive of normal interval healing process. The joint spaces are preserved. The Lisfranc joint appears within normal limits. Mild nonspecific soft tissue edema. IMPRESSION: Recent mildly displaced fractures of the distal right fibula and medial malleolus status post surgical fixation. No evidence of hardware failure. right ankle x-ray: Attestation: I have reviewed the pertinent imaging results. Radiologist's impression: Status post ORIF of the distal right fibular shaft and medial malleolus. The hardware appears intact without evidence of failure. Redemonstrated recent displaced fractures of the distal right fibular shaft and medial malleolus without suggestion of bony callus formation suggestive of normal interval healing process. The ankle mortise joint space is preserved. IMPRESSION: 1. Status post ORIF of the distal right fibular shaft and medial malleolus without evidence of hardware complications. 2. Recent displaced fractures of the distal right fibular shaft and medial malleolus. Discharge Plan Discharge Clinical Impression: Suicide gesture, Acute foot pain, Alcohol intoxication Patient Disposition: Home, Self-Care Condition: Improved Instructions: Abuse of Alcohol (ED) Additional Instructions: recommend abstinence from alcohol. Please increase your fluid intake tonight with water Gatorade or juices. Follow-up as directed on Monday with your orthopedic surgeon. Return to the emergency room as needed for suicidal thoughts, worsening symptoms and as needed. Prescriptions: No Action escitalopram oxalate 10 mg tablet 10 mg PO QDAY Qty: 30 2RF losartan 50 mg tablet PO aspirin 325 mg tablet 325 mg PO DAILY tramadol 50 mg tablet 50 mg PO Q4-6H PRN (Reason: pain) fluoxetine 10 mg capsule 10 mg PO DAILY Follow Up/Referrals: Ravi Smith MD [Primary Care Provider] - Stand Alone Forms: [employer] Info Instructions
--- NOTE | 2024-07-15 15:32 | CRLHL7_ITS ---
For Patients: As a result of the Century Cures Act, medical imaging exams and procedure reports are released immediately into your electronic medical record. You may view this report before your referring provider. If you have questions, please contact your health care provider. INDICATION: Persistent right lower extremity pain status post injury. TECHNIQUE: AP and lateral projections of the right foot, AP projections of the right ankle s, 3 views. COMPARISON: None. FINDINGS: Redemonstrated recent mildly displaced comminuted distal right fibular fracture and medial malleolus status post ORIF of the right distal tibia and fibula. The hardware appears intact without evidence failure. No bony callus formation suggestive of normal interval healing process. The joint spaces are preserved. The Lisfranc joint appears within normal limits. Mild nonspecific soft tissue edema. IMPRESSION: Recent mildly displaced fractures of the distal right fibula and medial malleolus status post surgical fixation. No evidence of hardware failure. Dictated by Woody Rausch MD @ 07/15/2024 5:56:32 PM (Electronically Signed)
--- NOTE | 2024-07-15 15:32 | CRLHL7_ITS ---
For Patients: As a result of the Century Cures Act, medical imaging exams and procedure reports are released immediately into your electronic medical record. You may view this report before your referring provider. If you have questions, please contact your health care provider. INDICATION: Postoperative pain. TECHNIQUE: Right ankle radiographs, 2 views. COMPARISON: None. FINDINGS: Status post ORIF of the distal right fibular shaft and medial malleolus. The hardware appears intact without evidence of failure. Redemonstrated recent displaced fractures of the distal right fibular shaft and medial malleolus without suggestion of bony callus formation suggestive of normal interval healing process. The ankle mortise joint space is preserved. IMPRESSION: 1. Status post ORIF of the distal right fibular shaft and medial malleolus without evidence of hardware complications. 2. Recent displaced fractures of the distal right fibular shaft and medial malleolus. Dictated by Woody Rausch MD @ 07/15/2024 6:02:10 PM (Electronically Signed)
--- OUTSIDE RECORDS SUMMARY | 2024-07-15 15:53 | XMS_ITS | Encounter Summary ---
Author Organization [place] Address [address] [facility] [place] [address] Care Team Providers Care Client Server Programmer Name Role Phone Roman Patten MD Primary Care Provider [phone] Encounter Details Date Type Department Care Team (Late st Contact Info) Description 07/30/2017 Telephone [facility] Behavioral Health Intake [address] [place] [phone] Generic, Behavioral Intake, Social History Tobacco Use Types Packs/Day Years Used Date Smoking Tobacco: Former Cigarettes 1 - 02/06/1999 Smokeless Tobacco: Never Alcohol Use Standard Drinks/Week Comments Yes 0 (1 standard drink = 0.6 oz pur e alcohol) social Comments No Sex and Gender Information Value Date Recorded Sex Assigned at Not on file 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 [...] 20 under the care of Dr Baker. center sales and service associate notified of admission at 3:50pm documented in this encounter Plan of Treatment Not on file documented as of this encounter Visit Diagnoses Not on filedocumented in this encounter Care Teams Client Server Programmer Relationship Specialty Start Date End Date Roman Patten MD PCP - General Family Practice 11/13/13 documented as of this encounter
--- OUTSIDE RECORDS SUMMARY | 2024-07-15 15:53 | XMS_ITS | Clinical Summary ---
Author Organization [facility] Address [address] [place] [address] Care Team Providers Care Oil And Gas Field Technician Name Role Phone Jennifer Benitez MD Primary [...] Department Care Team Description 05/28/2024 1:15 PM CIGARETTE MACHINE FILLER Office Visit [facility] [address] [place], [place] [id number] Manjeet Atwood MD Preoperative Exam (DOS: 06/03/2024, right ankle, [facility]. Brooks, [facility]) 05/27/2024 Travel from Last 3 Months Immunizations [...] on file Legal Sex Female 6:20 AM CIGARETTE MACHINE FILLER Gender Identity Not on file Sexual Orientation [...] Comments Blood Pressure 146/80 05/28/2024 1:39 PM CIGARETTE MACHINE FILLER Pulse 81 05/28/2024 1:25 PM CIGARETTE MACHINE FILLER Temperature 35.7 C (96.3 F) 11/19/2022 8:14 PM CDT Respiratory Rate 18 11/19/2022 8:14 PM CDT Oxygen Saturation 96% 05/28/2024 1:25 PM CIGARETTE MACHINE FILLER Inhaled Oxygen Concentration - - Weight 63 kg (139 lb) 05/28/2024 1:25 PM CIGARETTE MACHINE FILLER Height 157.5 cm (5' 2) 05/28/2024 1:25 PM CIGARETTE MACHINE FILLER Body Mass Index 25.42 05/28/2024 1:25 PM CIGARETTE MACHINE FILLER Plan of Treatment Health Maintenance Due Date [...] Comments ANTI HCV Routine 04/10/2024 3:47 PM CIGARETTE MACHINE FILLER Encounter for HCV screening test for low risk patient LIPID PANEL W REFLEX MEASURED LDL Routine 04/10/2024 3:47 PM CIGARETTE MACHINE FILLER Screening cholesterol level from Last 3 Months or Most Recently Relevant to Health Maintenance Results * (ABNORMAL) LIPID PANEL W REFLEX MEASURED LDL (04/10/2024 3:47 PM CIGARETTE MACHINE FILLER) CHOLESTEROL, TOTAL 243(H) <200 mg/dL [facility] HDL CHOLESTEROL 97 > OR = 50 mg/dL [facility] TRIGLYCERIDES 115 <150 mg/dL [...] LDL-C. Kushal SS et al. SARINA. 2013;310(19): 2717-3326 (http://education.FFFavs/faq/EWO516) CHOL/HDLC RATIO 2.5 <5.0 (calc) [facility] NON HDL CHOLESTEROL 146(H) <130 mg/dL (calc) [facility] Comment: For patients with diabetes plus 1 major ASCVD risk factor, treating to a non-HDL-C goal of <100 mg/dL (LDL-C of <70 mg/dL) is considered a therapeutic option. Blood BLOOD SPECIMEN / Unknown 04/10/2024 3:47 PM CIGARETTE MACHINE FILLER 04/10/2024 3:47 PM CIGARETTE MACHINE FILLER Jennifer Benitez MD CHEMISTRY Fi nal Result Performing Organization Address City/[facility]/ZIP Co de Phone Number Scratch [facility] [address] [place] [address], [place] [phone] [facility] [address] [place] [address] * ANTI HCV (04/10/2024 3:47 PM CIGARETTE MACHINE FILLER) HEPATITIS C ANTIBODY NON-REACTI VE NON-REACT DULCE [facility] Comment: HCV antibody was non-reactive. There is no laboratory evidence of HCV infection. In most cases, no further action is required. However, if recent HCV exposure is suspected, a test for HCV RNA (test code 98237) is suggested. For additional information please refer to http://education.Sinnet/faq/VJZ06u9 (This link is being provided for informational/ educational purposes only.) Blood BLOOD SPECIMEN / Unknown 04/10/2024 3:47 PM CIGARETTE MACHINE FILLER 04/10/2024 3:47 PM CIGARETTE MACHINE FILLER Jennifer Benitez MD SEND OUTS Fi nal Result Performing Organization Address [facility] Co de Phone Number [facility] [address] [place] [address], [email or web address] [address] [place] [phone] from Last 3 Months or Most Recently Relevant to Health Maintenance Insurance MEDICA PASSPORT MED[employer] PAS[employer]ORT BLUE ADVANTAGE [facility] Advance Directives * Full Code (Latest Code Status on File) Date Activated Date Inactivated Comments 04/03/2019 6:13 AM 04/03/2019 2:55 PM Care Teams Oil And Gas Field Technician Relationship Specialty Start Date End Date Jennifer Benitez MD [address] [facility] [place] [address] PCP - General Family Practice 03/25/24
--- OUTSIDE RECORDS SUMMARY | 2024-07-15 15:53 | XMS_ITS | Clinical Summary ---
Author Organization [facility] Address [address] [place] [address] Care Team Providers Care Agitator Operator Name Role Phone Elsewhere, Pcp Primary Care Provider Unavailabl e Source Comments Patient records contain information from all sites at [facility]. For routine questions regarding patient records, call [phone] during business hours, M-F 8:00 AM - 5:00 PM Central Time. Record requests for emergency care only can be directed to [phone] at any time.[facility] Allergies No known active allergies [...] on file Legal Sex Female 11:15 AM PAINT BOOTH OPERATOR Gender Identity Female 07/14/2017 9:05 AM CDT [...] Ke[place] D.O. LAB BLOOD ADD-ON Final Result [facility] [address] [place] [address], [facility] NPRG [facility] [address] [place] [address] * BI Breast Screening Bilateral (09/07/2017 7:50 [...] Recently Relevant to Health Maintenance Care Teams Agitator Operator Relationship Specialty Start Date End Date Elsewhere, Pcp PCP - General Family Medicine 06/12/20
--- OUTSIDE RECORDS SUMMARY | 2024-07-15 15:53 | XMS_ITS | Clinical Summary ---
Author Organization [facility] Address [address] [address] Phone Care Team Providers Care Jewish Thought Professor Name Role Phone Elsewhere, Pcp Primary Care [...] Department Care Team Description 05/25/2024 1:54 PM ACID SPLICER - 05/25/2024 4:48 PM [facility] Emergency [facility] [address] [place] [address] Abbie Reyna, JUAQUIN Closed trimalleolar [...] on file Legal Sex Female 1:53 PM ACID SPLICER Gender Identity Not on file Sexual Orientation Not on file Last Filed Vital Signs Vital Sign Reading Time Taken Comments Blood Pressure 159/107 05/25/2024 3:20 PM ACID SPLICER Pulse 81 05/25/2024 3:20 PM ACID SPLICER Temperature 36.9 C (98.4 F) 05/25/2024 1:58 PM ACID SPLICER Respiratory Rate 19 05/25/2024 3:20 PM ACID SPLICER Oxygen Saturation 97% 05/25/2024 3:20 PM ACID SPLICER Inhaled Oxygen Concentration - - Weight 56.7 kg (125 lb) 05/25/2024 1:58 PM ACID SPLICER Height - - Body Mass Index - [...] APPLY LOWER LEG SPLINT 05/25/2024 3:30 PM ACID SPLICER Closed trimalleolar fracture of right ankle, initial encounter CLOSED RX TRIMALLEOLAR FX,MANIP 05/25/2024 3:30 PM ACID SPLICER Closed trimalleolar fracture of right ankle, initial encounter XR ANKLE RIGHT 3 OR MORE VIEWS STAT 05/25/2024 3:28 PM ACID SPLICER Closed trimalleolar fracture of right ankle, initial encounter XR C ARM FLUORO STAT 05/25/2024 3:15 PM ACID SPLICER Closed trimalleolar fracture of right ankle, initial encounter MOD SED OTHER PHYS/QHP EACH ADDL 15 MINS 05/25/2024 2:37 PM ACID SPLICER Closed trimalleolar fracture of right ankle, initial encounter Ankle dislocation, right, initial encounter MOD SED OTHER PHYS/QHP EACH ADDL 15 MINS 05/25/2024 2:37 PM ACID SPLICER Closed trimalleolar fracture of right ankle, initial encounter Ankle dislocation, right, initial encounter MOD SED OTHER PHYS/QHP INITIAL 15 MINS 5/> YRS 05/25/2024 2:37 PM ACID SPLICER Closed trimalleolar fracture of right ankle, initial encounter Ankle dislocation, right, initial encounter XR ANKLE RIGHT 2 VIEWS STAT 05/25/2024 2:33 PM ACID SPLICER Closed trimalleolar fracture of right ankle, initial encounter from Last 3 Months Results * CLOSED RX TRIMALLEOLAR FX,MANIP, APPLY LOWER LEG SPLINT (05/25/2024 3:30 PM ACID SPLICER) Narrative Abbie Reyna PA-C - 05/25/2024 3:30 PM ACID SPLICER Abbie Reyna PA-C 05/25/2024 4:27 PM Orthopedic Injury Treatment - Fracture Date/Time: 05/25/2024 3:30 PM Performed by: Abbie Reyna PA-C Authorized by: Abbie Reyna PA-C Consent: Consent obtained: Verbal Consent given by: Patient Risks, benefits, and alternatives were discussed: yes Risks discussed: Pain [place] protocol: Patient identity confirmed: Verbally with patient [...] 3 OR MORE VIEWS (05/25/2024 3:28 PM ACID SPLICER) Anatomical Region Laterality Modality Ankle Radiographic Ursula ging 05/25/2024 3:28 PM ACID SPLICER Narrative 05/26/2024 7:44 AM ACID SPLICER PROCEDURE: XR ANKLE RIGHT 3 OR MORE [...] XR C ARM FLUORO (05/25/2024 3:15 PM ACID SPLICER) Anatomical Region Laterality Modality Radiographic Ursula ging 05/25/2024 3:05 PM ACID SPLICER Narrative 05/26/2024 7:47 AM ACID SPLICER PROCEDURE: C-ARM FLUOROSCOPIC SUPPORT HISTORY: fall right [...] EACH ADDL 15 MINS (05/25/2024 2:37 PM ACID SPLICER) Narrative Jermaine Lee MD - 05/25/2024 2:37 PM ACID SPLICER Jermaine Lee MD 05/25/2024 5:22 PM Moderate Sedation Date/Time: 05/25/2024 2:37 PM Performed by: Jermaine Lee MD Authorized by: Jermaine Lee MD Consent: Consent obtained: Verbal and emergent situation Risks, benefits, and alternatives were discussed: yes Risks discussed: Inadequate sedation and respiratory compromise necessitating ventilatory assistance and intubation Alternatives discussed: Analgesia without sedation [place] protocol: Procedure explained and questions answered to [...] Sedation: Propofol Intra-procedure monitoring: Blood pressure monitoring, music director, continuous pulse oximetry, continuous capnometry, frequent LOC [...] ANKLE RIGHT 2 VIEWS (05/25/2024 2:33 PM ACID SPLICER) Anatomical Region Laterality Modality Ankle Radiographic Ursula ging 05/25/2024 2:17 PM ACID SPLICER Narrative 05/26/2024 7:38 AM ACID SPLICER PROCEDURE: XR ANKLE RIGHT 2 VIEWS. HISTORY: [...] Billing Address Personal/Family Self 1975 [address] [place] [address] [facility] Care Teams Jewish Thought Professor Relationship Specialty Start Date End Date Elsewhere, Pcp PCP - General 05/25/24
--- OUTSIDE RECORDS SUMMARY | 2024-07-15 15:53 | XMS_ITS | Clinical Summary ---
[facility] Address [address] [place] [address] Care Team Providers Care Char Puller Name Role Phone Roman Patten MD Primary Care Provider [phone] Source Comments You are receiving this document as you are listed as the primary care provider,follow-up provider, or the patient has been referred to you for consultation.This is in compliance with the Medicare and[facility] EHR Incentive Program,which states Providers who transition their patient to another setting of careor provider of care or refers their patient to another provider of care shouldprovide summary care record for each transition of care or referral. [facility] Allergies No known active allergies Medications hydrOXYzine [...] Comments Blood Pressure 122/86 05/09/2019 10:48 AM NOTE TAKER Pulse 70 03/25/2019 4:28 PM NOTE TAKER Temperature 37 C (98.6 F) 09/24/2013 3:01 PM CDT Respiratory Rate - - Oxygen Saturation - - Inhaled Oxygen Concentration - - Weight 56.7 kg (125 lb) 08/14/2020 2:11 PM CDT Height 157.5 cm (5' 2) 03/25/2019 4:28 PM NOTE TAKER Body Mass Index 22.86 03/25/2019 4:28 PM NOTE TAKER Plan of Treatment Health Maintenance Due Date [...] 4:04 PM CDT) Case Report Pap Case: [id number] Authorizing Provider: Oneyda Bautista MD Collected: 11/21/2018 04:04 PM Ordering Location: [place] [address] Received: 11/21/2018 04:23 PM Obstetrics/Gynec ology First Screen: [place] [facility] (ASCP) Specimen: Pap Test, Routine, Cervix/Endocervix 11/27/2018 6:39 AM CDT [facility] Pap Specimen Adequacy Satisfactory for evaluation, endocervical/stewart sformation zone component present. 11/27/2018 6:39 AM CDT [facility] Pap Interpretation Negative for intraepithelial lesion or malignancy (NILM). 11/27/2018 6:39 AM CDT [facility] at 0639 CDT Pap Other Findings Endometrial cells in a woman >=45 years of age. 11/27/2018 6:39 AM CDT [facility] Gross Description The specimen is received in SurePath fixative and properly labeled. 1 Pap-stained SurePath slide is prepared. 11/27/2018 6:39 AM CDT [facility] Pap Disclaimer The Pap test is a screening test designed to aid in the detection of cervical cancer and its precursor lesions. It is not a diagnostic procedure and should not be used as the sole means of detecting cervical cancer. Both false-positive and false-negative reports may occur. 11/27/2018 6:39 AM CDT [facility] Embedded Images 6:39 AM CDT [facility] Other Specimen Type ENTIRE ENDOCERVIX / Unknown 11/21/2018 4:04 PM CDT 11/21/2018 4:23 PM CDT Comment:LMP: Patient's last menstrual period was 11/17/2018. us Oneyda Bautista MD LAB PATHOLOGY Final Result [facility] [address] [place] [address], [place] from Last 3 Months or Most Recently Relevant to Health Maintenance Care Teams Char Puller Relationship Specialty Start Date End Date Roman Patten MD [address] [place] [id number] PCP - General 06/12/13
--- OUTSIDE RECORDS SUMMARY | 2024-07-15 15:53 | XMS_ITS | Encounter Summary ---
Author Organization [facility] Address [address] [place] [address] Care Team Providers Care Electromechanical Equipment Assembler Name Role Phone Roman Patten MD Primary Care Provider [phone] Encounter Details Date Type Department Care Team (Late st Contact Info) Description 07/23/2015 Orders Only [facility] [address] [facility] [place] [address] David Martini, DPM [address] [place] [id number] Social History Tobacco Use Types Packs/Day Years [...] documented as of this encounter Care Teams Electromechanical Equipment Assembler Relationship Specialty Start Date End Date Roman Patten MD [address] [place] [address] PCP - General 06/12/13 documented as of this encounter
--- OUTSIDE RECORDS SUMMARY | 2024-07-15 15:53 | XMS_ITS | Encounter Summary ---
Author Organization [facility] Address [address] [place] [address] Care Team Providers Care Occ Ther Name Role Phone Roman Patten MD Primary Care Provider [phone] Encounter Details Date Type Department Care Team (Late st Contact Info) Description 01/21/2016 Orders Only [facility] [address] [place] [address] David Martini, DPM [address] [facility] [place] [address] Social History Tobacco Use Types Packs/Day Years [...] documented as of this encounter Care Teams Occ Ther Relationship Specialty Start Date End Date Roman Patten MD [address] [place] [address] PCP - General 06/12/13 documented as of this encounter
--- OUTSIDE RECORDS SUMMARY | 2024-07-15 15:53 | XMS_ITS | Clinical Summary ---
Author Organization [facility] Address [address] [facility] [place] [address] Care Team Providers Care Mechanic Field Service Name Role Phone Roman Patten MD Primary Care Provider [phone] Allergies No known active allergies Medications Metoprolol [...] on file Legal Sex Female 4:41 AM VISION SPECIALIST Gender Identity Not on file Sexual Orientation [...] Treatment Not on file [place] Advance Directives For more information, please contact: [phone] * Full Code (Latest Code Status on File) Date Activated Date Inactivated Comments 07/30/2017 6:37 PM 07/31/2017 4:21 PM Care Teams Mechanic Field Service Relationship Specialty Start Date End Date Roman Patten MD PCP - General Family Practice 11/13/13
[2024-07-15] MEDS: CYCLOBENZAPRINE HCL 10 MG TABLET PO (16:02)
--- NOTE | 2024-07-15 16:08 | ED.NURSE ---
Pt refused ketorolac and IV and fluids, MD dela cruz aware.
[2024-07-15] MEDS: LIDOCAINE/PRILOCAINE 2.5-2.5% CREAM 1 APPLIC TOPICAL (16:58)
[2024-07-15 18:17] LABS: Lactate* 2.6 mmol/L (0.5-1.9)
[2024-07-15 18:19] LABS: Basophils Absolute Auto 0.04 K/uL (0.00-0.30); Basophils Percent Auto 0.6 % (0.0-3.0); Eosinophils Absolute Auto 0.02 K/uL (0.00-0.50); Eosinophils Percent Auto 0.3 % (0.0-7.0); Hematocrit 38.4 % (33.0-51.0); Hemoglobin* 13.4 gm/dL (12.0-16.0); Immature Granulocytes Abs Auto 0.01 K/uL (0.00-0.30); Immature Granulocytes Pct Auto 0.1 %; Lymphocytes Percent Auto 44.9 % (20-44); Mean Corpuscular HGB Conc 35 gm/dL (32-36); Mean Corpuscular Hemoglobin 33 pg (26-34); Mean Corpuscular Volume 93 fL (80-100); Monocytes Percent Auto 6.9 % (0.0-11.0); Neutrophils Absolute Auto 3.28 K/uL (1.7-7.0); Neutrophils Percent Auto 47.2 % (42.0-72.0); Platelet Count* 407 K/uL (140-440); RDW Coefficient of Variation % 13.1 % (11.5-15.5); Red Blood Count 4.11 m/uL (4.00-5.20); White Blood Count* 6.95 K/uL (4.50-11.00)
[2024-07-15 18:21] LABS: Slide Review Reflex Yes
--- NOTE | 2024-07-15 18:25 | ED.NURSE ---
Pt is calm and cooperative at this time.
[2024-07-15 19:06] LABS: C Reactive Protein* < 0.5 mg/dL (0.5-1.0)
[2024-07-15] MEDS: TRAMADOL HCL 50 MG TABLET PO (19:35)
[2024-07-15 19:45] LABS: Albumin* 4.5 g/dL (3.3-5.0); Chloride* 100 mmol/L (96-114); Sodium* 138 mmol/L (135-149)
[2024-07-15] MEDS: KETOROLAC 30 MG/ML inj 15 MG IM (19:45)
[2024-07-15 19:48] LABS: Anion Gap 16 mEq/L (7-15); Aspartate Amino Transferase* 71 U/L (12-35); Bilirubin Total* 0.8 mg/dL (0.1-1.5); Blood Urea Nitrogen* 13 mg/dL (7-30); Calcium* 9.1 mg/dL (8.4-10.6); Carbon Dioxide* 22 mmol/L (20-32); Creatinine* 0.7 mg/dL (0.5-1.5); Estimated Glomerular Filt Rate 105 ml/min; Glucose* 87 mg/dL (60-115); Total Protein* 7.3 g/dL (6.0-8.3)
[2024-07-15 19:49] LABS: Alanine Aminotransferase* 100 U/L (4-35); Alkaline Phosphatase* 83 U/L (40-150)
[2024-07-15 20:18] LABS: Slide Review Acceptable Review (Acceptable)
== END 2024-07-15 20:09 | disposition home or self-care (01) ==
PROVIDERS: Emergency Provider Family Medicine; PCP Family Medicine
DX: R45.851 Suicidal ideations (principal); M79.671 Pain in right foot; F10.129 Alcohol abuse with intoxication, unspecified
CPT/HCPCS: 36415; 73600; 73620; 80053; 80306; 81001; 82077; 83605; 85025; 86140; 96372; 99284; A9270; J1885

== ENCOUNTER 2024-07-28 10:42 | Outpatient (CLI) | payer BC, SELFPAY | END 2024-07-28 10:43 | disposition home or self-care (01) | LOC: AMB 07-29 11:16 | PROVIDERS: PCP Family Medicine; Visit Provider Internal Medicine | DX: F29 Unspecified psychosis not due to a substance or known physiological condition (principal) | CPT/HCPCS: A0998 ==

== ENCOUNTER 2024-07-28 17:32 | Outpatient (CLI) | payer BC, SELFPAY | END 2024-07-28 17:33 | disposition home or self-care (01) | LOC: AMB 07-29 11:41 | PROVIDERS: PCP Family Medicine; Visit Provider Internal Medicine | DX: F10.129 Alcohol abuse with intoxication, unspecified (principal); R41.82 Altered mental status, unspecified | CPT/HCPCS: A0425; A0427 ==

== ENCOUNTER 2024-07-28 17:51 | Emergency (ER) | payer BC, SELFPAY ==
--- OUTSIDE RECORDS SUMMARY | 2024-07-28 17:54 | XMS_ITS | Clinical Summary ---
Author Organization [facility] Address [address] [place] [address] Care Team Providers Care Industrial Technician Name Role Phone Roman Patten MD Primary Care Provider [phone] Source Comments You are receiving this document as you are listed as the primary care provider,follow-up provider, or the patient has been referred to you for consultation.This is in compliance with the Medicare and[facility] EHR Incentive Program,which states Providers who transition their patient to another setting of careor provider of care or refers their patient to another provider of care shouldprovide summary care record for each transition of care or referral. [facility] Allergies No known active allergies Medications hydrOXYzine [...] Comments Blood Pressure 122/86 05/09/2019 10:48 AM BEATER BOSS Pulse 70 03/25/2019 4:28 PM BEATER BOSS Temperature 37 C (98.6 F) 09/24/2013 3:01 PM CDT Respiratory Rate - - Oxygen Saturation - - Inhaled Oxygen Concentration - - Weight 56.7 kg (125 lb) 08/14/2020 2:11 PM CDT Height 157.5 cm (5' 2) 03/25/2019 4:28 PM BEATER BOSS Body Mass Index 22.86 03/25/2019 4:28 PM BEATER BOSS Plan of Treatment Health Maintenance Due Date Last Done Comments Colon Cancer Screening Plan Due 1975 Hep C Screening (Preventive Services) 1975 Mammogram 1975 HIV Screening (Preventive Services) 1989 Adult Preventive Visit 1991 DTaP/Tdap/Td (1 - Tdap) 1992 HepB (1) 1992 Cholesterol 2018 Pneumococcal 50+ Yrs (1 of 1 - PCV) 2023 Zoster/Shingles (1 of 2) 2023 Cervical Cancer Screening 11/22/20232018, 11/21/2018, 03/12/2010 COVID-19 Vaccine ( - 2023-2 5 season) 2023 Influenza (#1) [...] 4:04 PM CDT) Case Report Pap Case: [id number] Authorizing Provider: Oneyda Bautista MD Collected: 11/21/2018 04:04 PM Ordering Location: [place] [address] Received: 11/21/2018 04:23 PM Obstetrics/Gynec ology First Screen: [place] [facility] (ASCP) Specimen: Pap Test, Routine, Cervix/Endocervix 11/27/2018 6:39 AM CDT [facility] Pap Specimen Adequacy Satisfactory for evaluation, endocervical/stewart sformation zone component present. 11/27/2018 6:39 AM CDT [facility] Pap Interpretation Negative for intraepithelial lesion or malignancy (NILM). 11/27/2018 6:39 AM CDT [facility] at 0639 CDT Pap Other Findings Endometrial cells in a woman >=45 years of age. 11/27/2018 6:39 AM CDT [facility] Gross Description The specimen is received in SurePath fixative and properly labeled. 1 Pap-stained SurePath slide is prepared. 11/27/2018 6:39 AM CDT [facility] Pap Disclaimer The Pap test is a screening test designed to aid in the detection of cervical cancer and its precursor lesions. It is not a diagnostic procedure and should not be used as the sole means of detecting cervical cancer. Both false-positive and false-negative reports may occur. 11/27/2018 6:39 AM CDT [facility] Embedded Images 6:39 AM CDT [facility] Other Specimen Type ENTIRE ENDOCERVIX / Unknown 11/21/2018 4:04 PM CDT 11/21/2018 4:23 PM CDT Comment:LMP: Patient's last menstrual period was 11/17/2018. Oneyda Bautista MD LAB PATHOLOGY Final Result [facility] [address] [place] [address], [facility] from Last 3 Months or Most Recently Relevant to Health Maintenance Care Teams Industrial Technician Relationship Specialty Start Date End Date Roman Patten MD [address] [place] [address] PCP - General 06/12/13
--- OUTSIDE RECORDS SUMMARY | 2024-07-28 17:54 | XMS_ITS | Encounter Summary ---
Author Organization [facility] Address [address] [place] [address] Care Team Providers Care Head Teller Name Role Phone Roman Patten MD Primary Care Provider [phone] Encounter Details Date Type Department Care Team (Late st Contact Info) Description 01/21/2016 Orders Only [facility] [address] [place] [address] David Martini, DPM [address] [facility] [place] [id number] Social History Tobacco Use Types Packs/Day Years [...] documented as of this encounter Care Teams Head Teller Relationship Specialty Start Date End Date Roman Patten MD [address] [facility] [place] [address] PCP - General 06/12/13 documented as of this encounter
--- OUTSIDE RECORDS SUMMARY | 2024-07-28 17:54 | XMS_ITS | Clinical Summary ---
Author Organization [facility] Address [address] [place] [address] Care Team Providers Care Medical Record Transcriber Name Role Phone Jennifer Benitez MD Primary [...] Encounters Date Type Department Care Team Description 07/25/2024 Refill [facility] [address] [place] [address] Jennifer Benitez MD Refill Request (FLUOXETINE) 05/28/2024 1:15 PM PRINCIPAL CLERK TYPIST Office Visit [facility] [address] [place] [address] Manjeet Atwood MD Preoperative Exam (DOS: 06/03/2024, right ankle, Dr. Brooks, [facility]) 05/27/2024 Travel from Last 3 Months [...] on file Legal Sex Female 6:20 AM PRINCIPAL CLERK TYPIST Gender Identity Not on file Sexual Orientation [...] Comments Blood Pressure 146/80 05/28/2024 1:39 PM PRINCIPAL CLERK TYPIST Pulse 81 05/28/2024 1:25 PM PRINCIPAL CLERK TYPIST Temperature 35.7 C (96.3 F) 11/19/2022 8:14 PM CDT Respiratory Rate 18 11/19/2022 8:14 PM CDT Oxygen Saturation 96% 05/28/2024 1:25 PM PRINCIPAL CLERK TYPIST Inhaled Oxygen Concentration - - Weight 63 kg (139 lb) 05/28/2024 1:25 PM PRINCIPAL CLERK TYPIST Height 157.5 cm (5' 2) 05/28/2024 1:25 PM PRINCIPAL CLERK TYPIST Body Mass Index 25.42 05/28/2024 1:25 PM PRINCIPAL CLERK TYPIST Plan of Treatment Health Maintenance Due Date Last Done Comments HIV for age 15-65 1988 Pneumococcal series for age 50+ (1 of 2 - PCV) 1992 Colonoscopy through age 75 2018 Mammogram for age 45-75 2018 Zoster (shingles) series for age 50+ (1 of 2) 2023 COVID-19 vaccine series (1 - season) 2023 Influenza Vaccine (#1) 2023 [...] Comments ANTI HCV Routine 04/10/2024 3:47 PM PRINCIPAL CLERK TYPIST Encounter for HCV screening test for low risk patient LIPID PANEL W REFLEX MEASURED LDL Routine 04/10/2024 3:47 PM PRINCIPAL CLERK TYPIST Screening cholesterol level from Last 3 Months or Most Recently Relevant to Health Maintenance Results * (ABNORMAL) LIPID PANEL W REFLEX MEASURED LDL (04/10/2024 3:47 PM PRINCIPAL CLERK TYPIST) CHOLESTEROL, TOTAL 243(H) <200 mg/dL [facility] HDL CHOLESTEROL 97 > OR = 50 mg/dL [facility] TRIGLYCERIDES 115 <150 mg/dL [...] equation in the estimation of LDL-C. Kushal RO et al. SARINA. 2013;310(19): 6724-9724 (http://education.[employer]/faq/UDC611) CHOL/HDLC RATIO 2.5 <5.0 (calc) [facility] NON HDL CHOLESTEROL 146(H) <130 mg/dL (calc) [facility] Comment: For patients with diabetes plus 1 major ASCVD risk factor, treating to a non-HDL-C goal of <100 mg/dL (LDL-C of <70 mg/dL) is considered a therapeutic option. Blood BLOOD SPECIMEN / Unknown 04/10/2024 3:47 PM PRINCIPAL CLERK TYPIST 04/10/2024 3:47 PM PRINCIPAL CLERK TYPIST Jennifer Benitez MD CHEMISTRY Fi nal Result Performing Organization Address [facility]/ZIP Co de Phone Number [facility] [address] [place] [address], [employer] [address] [place] [address] * ANTI HCV (04/10/2024 3:47 PM PRINCIPAL CLERK TYPIST) HEPATITIS C ANTIBODY NON-REACTI VE NON-REACT DULCE [employer] Comment: HCV antibody was non-reactive. There is no laboratory evidence of HCV infection. In most cases, no further action is required. However, if recent HCV exposure is suspected, a test for HCV RNA (test code 93669) is suggested. For additional information please refer to http://education.[employer]/faq/KSR55k7 (This link is being provided for informational/ educational purposes only.) Blood BLOOD SPECIMEN / Unknown 04/10/2024 3:47 PM PRINCIPAL CLERK TYPIST 04/10/2024 3:47 PM PRINCIPAL CLERK TYPIST Jennifer Benitez MD SEND OUTS Fi nal Result Performing Organization Address [facility] Co de Phone Number [facility] [address] [facility] [place] [address], [place] [phone] [facility] [address] [place] [address] from Last 3 Months or Most Recently Relevant to Health Maintenance Insurance [facility] [employer] [place] [id number] [facility] [id number] [facility] Advance Directives * Full Code (Latest Code Status on File) Date Activated Date Inactivated Comments 04/03/2019 6:13 AM 04/03/2019 2:55 PM Care Teams Medical Record Transcriber Relationship Specialty Start Date End Date Jennifer Benitez MD [address] [address] PCP - General Family Practice 03/25/24
--- OUTSIDE RECORDS SUMMARY | 2024-07-28 17:54 | XMS_ITS | Encounter Summary ---
Author Organization [facility] Address [address] [place] [address] Care Team Providers Care Small Lot Operator Name Role Phone Roman Patten MD Primary Care Provider [phone] Encounter Details Date Type Department Care Team (Late st Contact Info) Description 07/23/2015 Orders Only [facility] [address] [facility] [place] [address] David Martini, DPM [address] [facility] [address] [place] [id number] Social History Tobacco Use Types Packs/Day Years [...] documented as of this encounter Care Teams Small Lot Operator Relationship Specialty Start Date End Date Roman Patten MD [address] [facility] [place] [address] PCP - General 06/12/13 documented as of this encounter
--- OUTSIDE RECORDS SUMMARY | 2024-07-28 17:54 | XMS_ITS | Encounter Summary ---
Author Organization [facility] Address [address] [facility] [place] [address] Care Team Providers Care Loop Drier Operator Name Role Phone Roman Patten MD Primary Care Provider [phone] Encounter Details Date Type Department Care Team (Late st Contact Info) Description 07/30/2017 Telephone [facility] Behavioral Health Intake [address] [place] [id number] Generic, Behavioral Intake, Social History Tobacco Use Types Packs/Day Years Used Date Smoking Tobacco: Former Cigarettes 1 - 02/06/1999 Smokeless Tobacco: Never Alcohol Use Standard Drinks/Week Comments Yes 0 (1 standard drink = 0.6 oz pur e alcohol) social Comments No Sex and Gender Information Value Date Recorded Sex Assigned at Not on file Legal Sex Female 4:41 AM 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 [...] 20 under the care of Dr Baker. section maintainer notified of admission at 3:50pm documented in this encounter Plan of Treatment Not on file documented as of this encounter Visit Diagnoses Not on filedocumented in this encounter Care Teams Loop Drier Operator Relationship Specialty Start Date End Date Roman Patten MD PCP - General Family Practice 11/13/13 documented as of this encounter
--- OUTSIDE RECORDS SUMMARY | 2024-07-28 17:54 | XMS_ITS | Clinical Summary ---
Author Organization [facility] Address [address] [place] [address] Care Team Providers Care Group Fitness Assistant Department Head Name Role Phone Elsewhere, Pcp Primary Care Provider Unavailabl e Source Comments Patient records contain information from all sites at [facility]. For routine questions regarding patient records, call [phone] during business hours, M-F 8:00 AM - 5:00 PM Central Time. Record requests for emergency care only can be directed to [phone] at any time.[facility] Allergies No known active allergies Medications cholecalciferol [...] on file Legal Sex Female 11:15 AM DISHING MACHINE OPERATOR Gender Identity Female 07/14/2017 9:05 AM [...] Keene D.O. LAB BLOOD ADD-ON Final Result [facility] [address] [place] [address], [facility] NPRG [facility] [address] [place] [address] * BI Breast Screening Bilateral (09/07/2017 7:50 [...] Recently Relevant to Health Maintenance Care Teams Group Fitness Assistant Department Head Relationship Specialty Start Date End Date Elsewhere, Pcp PCP - General Family Medicine 06/12/20
--- OUTSIDE RECORDS SUMMARY | 2024-07-28 17:54 | XMS_ITS | Clinical Summary ---
Author Organization [facility] Address [address] [address] Phone Care Team Providers Care Backup Engineer Name Role Phone Elsewhere, Pcp Primary Care [...] Department Care Team Description 05/25/2024 1:54 PM SECONDARY SOCIAL STUDIES TEACHER - 05/25/2024 4:48 PM [facility] Emergency [facility] [address] [place] [address] Abbie Reyna, JUAQUIN Closed trimalleolar [...] on file Legal Sex Female 1:53 PM SECONDARY SOCIAL STUDIES TEACHER Gender Identity Not on file Sexual Orientation Not on file Last Filed Vital Signs Vital Sign Reading Time Taken Comments Blood Pressure 159/107 05/25/2024 3:20 PM SECONDARY SOCIAL STUDIES TEACHER Pulse 81 05/25/2024 3:20 PM SECONDARY SOCIAL STUDIES TEACHER Temperature 36.9 C (98.4 F) 05/25/2024 1:58 PM SECONDARY SOCIAL STUDIES TEACHER Respiratory Rate 19 05/25/2024 3:20 PM SECONDARY SOCIAL STUDIES TEACHER Oxygen Saturation 97% 05/25/2024 3:20 PM SECONDARY SOCIAL STUDIES TEACHER Inhaled Oxygen Concentration - - Weight 56.7 kg (125 lb) 05/25/2024 1:58 PM SECONDARY SOCIAL STUDIES TEACHER Height - - Body Mass Index - [...] APPLY LOWER LEG SPLINT 05/25/2024 3:30 PM SECONDARY SOCIAL STUDIES TEACHER Closed trimalleolar fracture of right ankle, initial encounter CLOSED RX TRIMALLEOLAR FX,MANIP 05/25/2024 3:30 PM SECONDARY SOCIAL STUDIES TEACHER Closed trimalleolar fracture of right ankle, initial encounter XR ANKLE RIGHT 3 OR MORE VIEWS STAT 05/25/2024 3:28 PM SECONDARY SOCIAL STUDIES TEACHER Closed trimalleolar fracture of right ankle, initial encounter XR C ARM FLUORO STAT 05/25/2024 3:15 PM SECONDARY SOCIAL STUDIES TEACHER Closed trimalleolar fracture of right ankle, initial encounter MOD SED OTHER PHYS/QHP EACH ADDL 15 MINS 05/25/2024 2:37 PM SECONDARY SOCIAL STUDIES TEACHER Closed trimalleolar fracture of right ankle, initial encounter Ankle dislocation, right, initial encounter MOD SED OTHER PHYS/QHP EACH ADDL 15 MINS 05/25/2024 2:37 PM SECONDARY SOCIAL STUDIES TEACHER Closed trimalleolar fracture of right ankle, initial encounter Ankle dislocation, right, initial encounter MOD SED OTHER PHYS/QHP INITIAL 15 MINS 5/> YRS 05/25/2024 2:37 PM SECONDARY SOCIAL STUDIES TEACHER Closed trimalleolar fracture of right ankle, initial encounter Ankle dislocation, right, initial encounter XR ANKLE RIGHT 2 VIEWS STAT 05/25/2024 2:33 PM SECONDARY SOCIAL STUDIES TEACHER Closed trimalleolar fracture of right ankle, initial encounter from Last 3 Months Results * CLOSED RX TRIMALLEOLAR FX,MANIP, APPLY LOWER LEG SPLINT (05/25/2024 3:30 PM SECONDARY SOCIAL STUDIES TEACHER) Narrative Abbie Reyna PA-C - 05/25/2024 3:30 PM SECONDARY SOCIAL STUDIES TEACHER Abbie Reyna PA-C 05/25/2024 4:27 PM Orthopedic Injury Treatment - Fracture Date/Time: 05/25/2024 3:30 PM Performed by: Abbie Reyna PA-C Authorized by: Abbie Reyna PA-C Consent: Consent obtained: Verbal Consent given by: Patient Risks, benefits, and alternatives were discussed: yes Risks discussed: Pain [place] protocol: Patient identity confirmed: Verbally with patient [...] 3 OR MORE VIEWS (05/25/2024 3:28 PM SECONDARY SOCIAL STUDIES TEACHER) Anatomical Region Laterality Modality Ankle Radiographic Ursula ging 05/25/2024 3:28 PM SECONDARY SOCIAL STUDIES TEACHER Narrative 05/26/2024 7:44 AM SECONDARY SOCIAL STUDIES TEACHER PROCEDURE: XR ANKLE RIGHT 3 OR MORE [...] XR C ARM FLUORO (05/25/2024 3:15 PM SECONDARY SOCIAL STUDIES TEACHER) Anatomical Region Laterality Modality Radiographic Ursula ging 05/25/2024 3:05 PM SECONDARY SOCIAL STUDIES TEACHER Narrative 05/26/2024 7:47 AM SECONDARY SOCIAL STUDIES TEACHER PROCEDURE: C-ARM FLUOROSCOPIC SUPPORT HISTORY: fall right [...] EACH ADDL 15 MINS (05/25/2024 2:37 PM SECONDARY SOCIAL STUDIES TEACHER) Narrative Jermaine Lee MD - 05/25/2024 2:37 PM SECONDARY SOCIAL STUDIES TEACHER Jermaine Lee MD 05/25/2024 5:22 PM Moderate Sedation Date/Time: 05/25/2024 2:37 PM Performed by: Jermaine Lee MD Authorized by: Jermaine Lee MD Consent: Consent obtained: Verbal and emergent situation Risks, benefits, and alternatives were discussed: yes Risks discussed: Inadequate sedation and respiratory compromise necessitating ventilatory assistance and intubation Alternatives discussed: Analgesia without sedation [place] protocol: Procedure explained and questions answered to [...] Sedation: Propofol Intra-procedure monitoring: Blood pressure monitoring, satellite project site monitor, continuous pulse oximetry, continuous capnometry, frequent [...] ANKLE RIGHT 2 VIEWS (05/25/2024 2:33 PM SECONDARY SOCIAL STUDIES TEACHER) Anatomical Region Laterality Modality Ankle Radiographic Ursula ging 05/25/2024 2:17 PM SECONDARY SOCIAL STUDIES TEACHER Narrative 05/26/2024 7:38 AM SECONDARY SOCIAL STUDIES TEACHER PROCEDURE: XR ANKLE RIGHT 2 VIEWS. HISTORY: [...] Billing Address Personal/Family Self 1975 [address] [place] [address] [facility] Commercial Address: [place] [id number] [place] [address] Care Teams Backup Engineer Relationship Specialty Start Date End Date Elsewhere, Pcp PCP - General 05/25/24
--- OUTSIDE RECORDS SUMMARY | 2024-07-28 17:54 | XMS_ITS | Clinical Summary ---
Author Organization [facility] Address [address] [facility] [address] Care Team Providers Care Enterprise Data Architect Name Role Phone Roman Patten MD Primary Care Provider [phone] Allergies No known active allergies Medications Metoprolol [...] on file Legal Sex Female 4:41 AM DIRECTOR OF PHOTOGRAPHY Gender Identity Not on file Sexual Orientation [...] Treatment Not on file [place] Advance Directives For more information, please contact: [phone] * Full Code (Latest Code Status on File) Date Activated Date Inactivated Comments 07/30/2017 6:37 PM 07/31/2017 4:21 PM Care Teams Enterprise Data Architect Relationship Specialty Start Date End Date Roman Patten MD PCP - General Family Practice 11/13/13
[2024-07-28 18:04] VITALS: BP 128/76; PULSE 104; RESP 18; TEMP 36.2; O2SAT 97; BMI 23.8
[2024-07-28] MEDS: 0.9 % SODIUM CHLORIDE 1000 ml 1,000 ML IV (19:01)
--- NOTE | 2024-07-28 19:07 | ED_ITS ---
HPI - General Adult General Date Seen: 07/28/24 Chief complaint: Alcohol/Intoxication Stated complaint: collapse Time Seen by Provider: 07/28/24 18:07 History of Present Illness HPI narrative: Patient is a 49-year-old woman with a history of alcohol abuse, here by EMS after 911 was called a couple of times today. Apparently the 1st time she seemed okay but the 2nd time she did not seem to be able to care for herself, kids said that they could not care for her and so she was brought to the ER. She is alert for me, she is not able to provide much of a history, just says that she made a bad decision. She does not elaborate further. She did tell me that she is not currently drinking, when I a suggested that her blood alcohol today was 0.4 and 2 weeks ago we saw her was 0.3, she did acknowledge that yes she has been drinking. She denies other substances. She is selective with what questions she will answer, but denies any acute injuries. She had an ankle surgery a little while back. She has had problems with pain related to that surgery. Seen here 2 weeks ago with alcohol intoxication and suicide gesture. Today she denies any suicidality. Related Data Home Medications ?Medication ?Instructions ?Recorded ?Confirmed aspirin 325 mg tablet 325 mg PO DAILY 07/15/24 07/28/24 fluoxetine 10 mg capsule 10 mg PO DAILY 07/15/24 07/28/24 losartan 50 mg tablet 50 mg PO 07/15/24 tramadol 50 mg tablet 50 mg PO Q4-6H PRN pain 07/15/24 07/28/24 Previous Rx's ?Medication ?Instructions ?Recorded escitalopram oxalate 10 mg tablet 10 mg PO QDAY #30 tabs 12/06/23 Allergies Allergy/AdvReac Type Severity Reaction Status Date / Time No Known Drug Allergies Allergy Verified 07/28/24 18:12 [facility] Medical History History of hypothyroidism ?Z86.39 - Personal history of other endocrine, nutritional and metabolic disease (ICD-10) Surgical History History of foot surgery ?Z98.890 - Other specified postprocedural states (ICD-10) Hx of hysterectomy ?Z90.710 - Acquired absence of both cervix and uterus (ICD-10) History of surgery on left wrist ?Z98.890 - Other specified postprocedural states (ICD-10) Social History Smoking Status: Former smoker Do you use any of these nicotine containing products: None Second hand tobacco smoke exposure: No How often do you have a drink containing alcohol: never How often do you have six or more drinks on one occasion: Never AUDIT-C Alcohol total score: 0 Non-prescribed substance use: denies use service: No Exam Narrative: Exam Narrative: Vital signs reviewed In general, An alert, intoxicated somewhat dramatic woman. Head: Normocephalic, atraumatic. Eyes: Sclera clear. Pupils equal and reactive. ENT: Mucous membranes moist. Neck: Supple without adenopathy. Heart: Mildly tachycardic, regular. Lungs: Clear. No increased work of breathing, crackles or wheezes. Abdomen: Soft, nontender to palpation. Extremities: Well perfused, pulses intact. No significant edema. Well- healed incision on the right ankle. No significant swelling or erythema. Neurologic: Alert, conversant. Speech is little slurred but fluent. Face is symmetric. Moves all extremities. Skin: Warm, dry well perfused. Affect: Labile. Const: Vital Signs, click to edit/add: Vital Signs - 24 hr 07/28/24 18:04 07/28/24 19:19 07/28/24 19:30 Temperature 97.1 F L Pulse Rate 107 H 99 Pulse Rate [Pulse Oximeter] 104 H Respiratory Rate 18 16 16 Blood Pressure [Le ft Upper Arm] 128/76 Pulse Oximetry 97 98 97 Oxygen Delivery Me thod Room Air Room Air Room Air 07/28/24 19:45 Temperature Pulse Rate 99 Pulse Rate [Pulse Oximeter] Respiratory Rate 16 Blood Pressure [Le ft Upper Arm] Pulse Oximetry 95 Oxygen Delivery Me thod Room Air Course Course ED Course: We will try to give her some IV fluids, check a few labs. Her Breathalyzer per PD was 0.4, she will likely need to stay here until she is a little more clinically sober. Labs overall are unremarkable, all reviewed. Her blood alcohol here is 0.47. She had some IV normal saline she has been resting comfortably. her son is here with her. She is alert and conversant, she is no longer slurred, up to bathroom without difficulty. Talking with her, it is clear that she still has alcohol on board in terms of her demeanor, but I would say otherwise she is clinically sober. Her son feels comfortable taking her home and I think that is reasonable. Did discuss that her blood alcohol is quite high and if she stacks more alcohol on top of that at this point she could run into problems with over- sedation. Discussed that this level of alcohol suggest significant tolerance to alcohol and that her risk of significant complications from alcoholism is high. Family says they have a lot of resources and support, seems unlikely at this point that she is interested in stopping drinking but they certainly are aware that that be the goal. Return as needed. Home with son. Vital Signs Vital signs: Initial Vital Signs Temperature 97.1 F L 07/28/24 18:04 Temperature Source Temporal Artery Scan 07/28/24 18:04 Pulse Rate 104 H 07/28/24 18:04 Respiratory Rate 18 07/28/24 18:04 Blood Pressure 128/76 07/28/24 18:04 Blood Pressure Mean 93 07/28/24 18:04 Blood Pressure Position Sitting 07/28/24 18:04 Pulse Oximetry 97 07/28/24 18:04 Oxygen Delivery Method Room Air 07/28/24 18:04 Vital Signs Temperature 97.1 F L 07/28/24 18:04 Pulse Rate 104 H 07/28/24 18:04 Respiratory Rate 18 07/28/24 18:04 Blood Pressure 128/76 07/28/24 18:04 Pulse Oximetry 97 07/28/24 18:04 Oxygen Delivery Method Room Air 07/28/24 18:04 Temperature 97.1 F L 07/28/24 18:04 Pulse Rate 99 07/28/24 19:45 Respiratory Rate 16 07/28/24 19:45 Blood Pressure 128/76 07/28/24 18:04 Pulse Oximetry 95 07/28/24 19:45 Oxygen Delivery Method Room Air 07/28/24 19:45 Medications Administered Medications: Discontinued Medications Generic Name Dose Route Start Last Admin Trade Name Freq PRN Reason Stop Dose Admin Sodium Chloride 1,000 mls @ 1,000 mls/hr 07/28/24 18:15 07/28/24 19:01 0.9 % Sodium Chloride 1000 Ml IV 07/28/24 19:14 1,000 mls/hr .Q1H JUANA Administration Medical Decision Making Lab Data Labs: Lab Results 07/28/24 Range/Units 18:50 WBC 7.20 (4.50-11.00) K/uL RBC 4.42 (4.00-5.20) m/uL Hgb 14.4 (12.0-16.0) gm/dL Hct 42.7 (33.0-51.0) % MCV 97 (80-100) fL MCH 33 (26-34) pg MCHC 34 (32-36) gm/dL RDW Coeff of Cally 13.4 (11.5-15.5) % Plt Count 468 H (140-440) K/uL Neut % (Auto) 44.7 (42.0-72.0) % Lymph % (Auto) 48.2 H (20-44) % [place] % (Auto) 6.0 (0.0-11.0) % Eos % (Auto) 0.4 (0.0-7.0) % Baso % (Auto) 0.7 (0.0-3.0) % Neut # (Auto) 3.22 (1.7-7.0) K/uL Lymph # (Auto) 3.50 H (0.90-2.90) K/uL [place] # (Auto) 0.40 (0.00-0.90) K/UL Eos # (Auto) 0.03 (0.00-0.50) K/uL Baso # (Auto) 0.05 (0.00-0.30) K/uL Abs Immat Gran (auto) 0.00 (0.00-0.30) K/uL Imm/Tot Granulo (auto) 0.0 % Sodium 148 (135-149) mmol/L Potassium 3.5 L (3.6-5.1) mmol/L Chloride 107 (96-114) mmol/L Carbon Dioxide 29 (20-32) mmol/L Anion Gap 12 (7-15) mEq/L BUN 14 (7-30) mg/dL Creatinine 0.8 (0.5-1.5) mg/dL Estimated Creat Clear 65.80 Estimated GFR 89 ml/min Glucose 114 (60-115) mg/dL Calcium 8.9 (8.4-10.6) mg/dL Total Bilirubin 0.3 (0.1-1.5) mg/dL Direct Bilirubin 0.3 (0.0-0.5) mg/dL AST 40 H (12-35) U/L ALT 30 (4-35) U/L Alkaline Phosphatase 61 (40-150) U/L Total Protein 7.5 (6.0-8.3) g/dL Albumin 4.6 (3.3-5.0) g/dL Lipase 94 (23-300) U/L Acetaminophen < 10.0 (10.0-30.0) ug/mL Ethyl Alcohol 0.47 H* (0.01-0.03) % Discharge Plan Discharge Clinical Impression: Alcohol intoxication, Alcoholism Patient Disposition: Home w/ Parent or Adult Condition: Improved Instructions: Alcohol Dependence (ED) Additional Instructions: Your blood alcohol tonight was 0.47. This suggests you have significant tolerance to alcohol and are at risk for significant complications if you continue to drink. when you have reached a point that you would like to stop drinking, strongly recommend inpatient chemical dependency treatment. Prescriptions: No Action escitalopram oxalate 10 mg tablet 10 mg PO QDAY Qty: 30 2RF losartan 50 mg tablet 50 mg PO aspirin 325 mg tablet 325 mg PO DAILY tramadol 50 mg tablet 50 mg PO Q4-6H PRN (Reason: pain) fluoxetine 10 mg capsule 10 mg PO DAILY Follow Up/Referrals: Ravi Smith MD [Primary Care Provider] - Stand Alone Forms: [employer] Info Instructions
[2024-07-28 19:12] LABS: Basophils Absolute Auto 0.05 K/uL (0.00-0.30); Basophils Percent Auto 0.7 % (0.0-3.0); Eosinophils Absolute Auto 0.03 K/uL (0.00-0.50); Eosinophils Percent Auto 0.4 % (0.0-7.0); Hematocrit 42.7 % (33.0-51.0); Hemoglobin* 14.4 gm/dL (12.0-16.0); Lymphocytes Percent Auto 48.2 % (20-44); Mean Corpuscular HGB Conc 34 gm/dL (32-36); Mean Corpuscular Hemoglobin 33 pg (26-34); Mean Corpuscular Volume 97 fL (80-100); Neutrophils Absolute Auto 3.22 K/uL (1.7-7.0); Neutrophils Percent Auto 44.7 % (42.0-72.0); Platelet Count* 468 K/uL (140-440); RDW Coefficient of Variation % 13.4 % (11.5-15.5); Red Blood Count 4.42 m/uL (4.00-5.20)
[2024-07-28 19:15] LABS: Slide Review Reflex No
[2024-07-28 19:19] VITALS: PULSE 107; RESP 16; O2SAT 98
[2024-07-28 19:23] LABS: Albumin* 4.6 g/dL (3.3-5.0)
[2024-07-28 19:24] LABS: Chloride* 107 mmol/L (96-114); Potassium* 3.5 mmol/L (3.6-5.1); Sodium* 148 mmol/L (135-149)
[2024-07-28 19:26] LABS: Alanine Aminotransferase* 30 U/L (4-35); Anion Gap 12 mEq/L (7-15); Aspartate Amino Transferase* 40 U/L (12-35); Blood Urea Nitrogen* 14 mg/dL (7-30); Carbon Dioxide* 29 mmol/L (20-32); Creatinine* 0.8 mg/dL (0.5-1.5); Estimated Glomerular Filt Rate 89 ml/min
[2024-07-28 19:27] LABS: Alkaline Phosphatase* 61 U/L (40-150); Bilirubin Direct* 0.3 mg/dL (0.0-0.5); Bilirubin Total* 0.3 mg/dL (0.1-1.5); Calcium* 8.9 mg/dL (8.4-10.6); Glucose* 114 mg/dL (60-115); Lipase* 94 U/L (23-300); Total Protein* 7.5 g/dL (6.0-8.3)
[2024-07-28 19:30] VITALS: PULSE 99; RESP 16; O2SAT 97
[2024-07-28 19:32] LABS: Acetaminophen* < 10.0 ug/mL (10.0-30.0)
[2024-07-28 19:43] LABS: Ethanol* 0.47 % (0.01-0.03)
[2024-07-28 19:45] VITALS: PULSE 99; RESP 16; O2SAT 95
[2024-07-28 20:00] VITALS: O2SAT 94
--- OUTSIDE RECORDS SUMMARY | 2024-07-28 20:45 | XMS_ITS | Encounter Summary ---
Author Organization [facility] Address [address] [place] [address] Care Team Providers Care Spiritual Counselor Name Role Phone Roman Patten MD Primary Care Provider [phone] Encounter Details Date Type Department Care Team (Late st Contact Info) Description 01/21/2016 Orders Only [facility] [address] [facility] [place] [address] David Martini, DPM [address] [facility] [place] [id number] Social History Tobacco Use Types Packs/Day Years [...] documented as of this encounter Care Teams Spiritual Counselor Relationship Specialty Start Date End Date Roman Patten MD [address] [place] [address] PCP - General 06/12/13 documented as of this encounter
--- OUTSIDE RECORDS SUMMARY | 2024-07-28 20:45 | XMS_ITS | Clinical Summary ---
[facility] Address [address] [place] [address] Care Team Providers Care Choral Teacher Name Role Phone Roman Patten MD Primary Care Provider [phone] Source Comments You are receiving this document as you are listed as the primary care provider,follow-up provider, or the patient has been referred to you for consultation.This is in compliance with the Medicare and[facility] EHR Incentive Program,which states Providers who transition their patient to another setting of careor provider of care or refers their patient to another provider of care shouldprovide summary care record for each transition of care or referral. [facility] Allergies No known active allergies Medications hydrOXYzine [...] Comments Blood Pressure 122/86 05/09/2019 10:48 AM FOUNTAIN PEN TURNER Pulse 70 03/25/2019 4:28 PM FOUNTAIN PEN TURNER Temperature 37 C (98.6 F) 09/24/2013 3:01 PM CDT Respiratory Rate - - Oxygen Saturation - - Inhaled Oxygen Concentration - - Weight 56.7 kg (125 lb) 08/14/2020 2:11 PM CDT Height 157.5 cm (5' 2) 03/25/2019 4:28 PM FOUNTAIN PEN TURNER Body Mass Index 22.86 03/25/2019 4:28 PM FOUNTAIN PEN TURNER Plan of Treatment Health Maintenance Due Date [...] 4:04 PM CDT) Case Report Pap Case: [id number] Authorizing Provider: Oneyda Bautista MD Collected: 11/21/2018 04:04 PM Ordering Location: [place] [address] Received: 11/21/2018 04:23 PM Obstetrics/Gynec ology First Screen: Theresa Hdz CT (ASCP) Specimen: Pap Test, Routine, Cervix/Endocervix 11/27/2018 6:39 AM CDT [facility] Pap Specimen Adequacy Satisfactory for evaluation, endocervical/stewart sformation zone component present. 11/27/2018 6:39 AM CDT [facility] Pap Interpretation Negative for intraepithelial lesion or malignancy (NILM). 11/27/2018 6:39 AM CDT [facility] at 0639 CDT Pap Other Findings Endometrial cells in a woman >=45 years of age. 11/27/2018 6:39 AM CDT [facility] Gross Description The specimen is received in SurePath fixative and properly labeled. 1 Pap-stained SurePath slide is prepared. 11/27/2018 6:39 AM CDT [facility] Pap Disclaimer The Pap test is a screening test designed to aid in the detection of cervical cancer and its precursor lesions. It is not a diagnostic procedure and should not be used as the sole means of detecting cervical cancer. Both false-positive and false-negative reports may occur. 11/27/2018 6:39 AM CDT [facility] Embedded Images 6:39 AM CDT [facility] Other Specimen Type ENTIRE ENDOCERVIX / Unknown 11/21/2018 4:04 PM CDT 11/21/2018 4:23 PM CDT Comment:LMP: Patient's last menstrual period was 11/17/2018. Oneyda Bautista MD LAB PATHOLOGY Final Result [facility] [address] [place] [address], [facility] from Last 3 Months or Most Recently Relevant to Health Maintenance Care Teams Choral Teacher Relationship Specialty Start Date End Date Roman Patten MD [address] [address] PCP - General 06/12/13
--- OUTSIDE RECORDS SUMMARY | 2024-07-28 20:45 | XMS_ITS | Clinical Summary ---
Author Organization [place] Address [address] [facility] [place] [place] [address] Care Team Providers Care Switchboard Installer Name Role Phone Roman Patten MD Primary Care Provider [phone] Allergies No known active allergies Medications Metoprolol [...] on file Legal Sex Female 4:41 AM LAUNCHMAN Gender Identity Not on file Sexual Orientation [...] Treatment Not on file [place] Advance Directives For more information, please contact: [phone] * Full Code (Latest Code Status on File) Date Activated Date Inactivated Comments 07/30/2017 6:37 PM 07/31/2017 4:21 PM Care Teams Switchboard Installer Relationship Specialty Start Date End Date Roman Patten MD PCP - General Family Practice 11/13/13
--- OUTSIDE RECORDS SUMMARY | 2024-07-28 20:45 | XMS_ITS | Encounter Summary ---
Author Organization [place] Address [address] [facility] [place] [address] Care Team Providers Care Shed Workers Supervisor Name Role Phone Roman Patten MD Primary Care Provider [phone] Encounter Details Date Type Department Care Team (Late st Contact Info) Description 07/30/2017 Telephone [facility] Behavioral Health Intake [address] [place] [id number] Generic, Behavioral Intake, Social History Tobacco Use Types Packs/Day Years Used Date Smoking Tobacco: Former Cigarettes 1 - 02/06/1999 Smokeless Tobacco: Never Alcohol Use Standard Drinks/Week Comments Yes 0 (1 standard drink = 0.6 oz pur e alcohol) social Comments No Sex and Gender Information Value Date Recorded Sex Assigned at Not on file Legal Sex Female 4:41 AM BATON TEACHER Gender Identity Not on file Sexual Orientation Not on file documented as of this encounter Miscellaneous Notes * Telephone Encounter - Karen Everett - 07/30/2017 11:26 AM CDT S: The pt was brought to [facility] ED B: The pt reports [...] 20 under the care of Dr Baker. manager house notified of admission at 3:50pm documented in this encounter Plan of Treatment Not on file documented as of this encounter Visit Diagnoses Not on filedocumented in this encounter Care Teams Shed Workers Supervisor Relationship Specialty Start Date End Date Roman Patten MD PCP - General Family Practice 11/13/13 documented as of this encounter
--- OUTSIDE RECORDS SUMMARY | 2024-07-28 20:45 | XMS_ITS | Encounter Summary ---
Author Organization [facility] Address [address] [place] [address] Care Team Providers Care Cracking And Fanning Machine Operator Name Role Phone Roman Patten MD Primary Care Provider [phone] Encounter Details Date Type Department Care Team (Late st Contact Info) Description 07/23/2015 Orders Only [facility] [address] [place] [address] David Martini, DPM [address] [facility] [address] [place] [address] Social History Tobacco Use Types Packs/Day Years [...] documented as of this encounter Care Teams Cracking And Fanning Machine Operator Relationship Specialty Start Date End Date Roman Patten MD [address] [address] PCP - General 06/12/13 documented as of this encounter
--- OUTSIDE RECORDS SUMMARY | 2024-07-28 20:45 | XMS_ITS | Clinical Summary ---
Author Organization [facility] Address [address] [place] [address] Care Team Providers Care Parts Salvager Name Role Phone Jennifer Benitez MD Primary [...] Type Department Care Team Description 07/25/2024 Refill [facility] [address] [place] [address] Jennifer Benitez MD Refill Request (FLUOXETINE) 05/28/2024 1:15 PM DISPATCHER MAINTENANCE SERVICE Office Visit [facility] [address] [place] [address] Manjeet Atwood MD Preoperative Exam (DOS: 06/03/2024, right ankle, Dr. Brooks, [facility]) 05/27/2024 Travel from Last 3 Months [...] on file Legal Sex Female 6:20 AM DISPATCHER MAINTENANCE SERVICE Gender Identity Not on file Sexual Orientation [...] Comments Blood Pressure 146/80 05/28/2024 1:39 PM DISPATCHER MAINTENANCE SERVICE Pulse 81 05/28/2024 1:25 PM DISPATCHER MAINTENANCE SERVICE Temperature 35.7 C (96.3 F) 11/19/2022 8:14 PM CDT Respiratory Rate 18 11/19/2022 8:14 PM CDT Oxygen Saturation 96% 05/28/2024 1:25 PM DISPATCHER MAINTENANCE SERVICE Inhaled Oxygen Concentration - - Weight 63 kg (139 lb) 05/28/2024 1:25 PM DISPATCHER MAINTENANCE SERVICE Height 157.5 cm (5' 2) 05/28/2024 1:25 PM DISPATCHER MAINTENANCE SERVICE Body Mass Index 25.42 05/28/2024 1:25 PM DISPATCHER MAINTENANCE SERVICE Plan of Treatment Health Maintenance Due Date [...] Comments ANTI HCV Routine 04/10/2024 3:47 PM DISPATCHER MAINTENANCE SERVICE Encounter for HCV screening test for low risk patient LIPID PANEL W REFLEX MEASURED LDL Routine 04/10/2024 3:47 PM DISPATCHER MAINTENANCE SERVICE Screening cholesterol level from Last 3 Months or Most Recently Relevant to Health Maintenance Results * (ABNORMAL) LIPID PANEL W REFLEX MEASURED LDL (04/10/2024 3:47 PM DISPATCHER MAINTENANCE SERVICE) CHOLESTEROL, TOTAL 243(H) <200 mg/dL [facility] [...] LDL-C. Kushal RO et al. SARINA. 2013;310(19): 9745-9136 (http://education.Razume.FUELUP/faq/SGS401) CHOL/HDLC RATIO 2.5 <5.0 (calc) [facility] NON HDL CHOLESTEROL 146(H) <130 mg/dL (calc) [facility] Comment: For patients with diabetes plus 1 major ASCVD risk factor, treating to a non-HDL-C goal of <100 mg/dL (LDL-C of <70 mg/dL) is considered a therapeutic option. Blood BLOOD SPECIMEN / Unknown 04/10/2024 3:47 PM DISPATCHER MAINTENANCE SERVICE 04/10/2024 3:47 PM DISPATCHER MAINTENANCE SERVICE Jennifer Benitez MD CHEMISTRY Fi nal Result Performing Organization Address [facility]/ZIP Co de Phone Number [employer] [facility] [address] [place] [address], [facility] [address] [place] [address] * ANTI HCV (04/10/2024 3:47 PM DISPATCHER MAINTENANCE SERVICE) HEPATITIS C ANTIBODY NON-REACTI VE NON-REACT DULCE [facility] Comment: HCV antibody was non-reactive. There is no laboratory evidence of HCV infection. In most cases, no further action is required. However, if recent HCV exposure is suspected, a test for HCV RNA (test code 34707) is suggested. For additional information please refer to http://education.Loaded Pocket/faq/XBI54k5 (This link is being provided for informational/ educational purposes only.) Blood BLOOD SPECIMEN / Unknown 04/10/2024 3:47 PM DISPATCHER MAINTENANCE SERVICE 04/10/2024 3:47 PM DISPATCHER MAINTENANCE SERVICE Jennifer Benitez MD SEND OUTS Fi nal Result Performing Organization Address [facility] Co de Phone Number [employer] [facility] [address] [facility] [facility] [place] [address], [place] [phone] [facility] [address] [place] [address] from Last 3 Months or Most Recently Relevant to Health Maintenance Insurance [facility] [employer]ORT MEDICA PAS[employer]ORT BLUE [employer] [place] [id number] [facility] [id number] [facility] [facility] Advance Directives * Full Code (Latest Code Status on File) Date Activated Date Inactivated Comments 04/03/2019 6:13 AM 04/03/2019 2:55 PM Care Teams Parts Salvager Relationship Specialty Start Date End Date Jennifer Benitez MD [address] [address] PCP - General Family Practice 03/25/24
--- OUTSIDE RECORDS SUMMARY | 2024-07-28 20:45 | XMS_ITS | Clinical Summary ---
Author Organization [facility] Address [address] [place] [address] Care Team Providers Care Graphics Specialist Name Role Phone Elsewhere, Pcp Primary Care Provider Unavailabl e Source Comments Patient records contain information from all sites at [facility]. For routine questions regarding patient records, call [phone] during business hours, M-F 8:00 AM - 5:00 PM Central Time. Record requests for emergency care only can be directed to [phone] at any time.[facility] Allergies No known active allergies [...] on file Legal Sex Female 11:15 AM FREIGHT RATE ANALYST Gender Identity Female 07/14/2017 9:05 AM CDT [...] [place] D.O. LAB BLOOD ADD-ON Final Result [facility] [address] [place] [address], [facility] [address] [place] [address] * BI Breast Screening Bilateral (09/07/2017 7:50 [...] Recently Relevant to Health Maintenance Care Teams Graphics Specialist Relationship Specialty Start Date End Date Elsewhere, Pcp PCP - General Family Medicine 06/12/20
--- OUTSIDE RECORDS SUMMARY | 2024-07-28 20:45 | XMS_ITS | Clinical Summary ---
Author Organization [facility] Address [address] [address] Phone Care Team Providers Care Negative Checker Name Role Phone Elsewhere, Pcp Primary Care [...] Department Care Team Description 05/25/2024 1:54 PM COMMERCIAL CENTER MANAGER - 05/25/2024 4:48 PM [facility] Emergency [facility] EMERGENCY DEPARTMENT [address] [place] [address] Abbie Reyna, JUAQUIN Closed trimalleolar [...] on file Legal Sex Female 1:53 PM COMMERCIAL CENTER MANAGER Gender Identity Not on file Sexual Orientation Not on file Last Filed Vital Signs Vital Sign Reading Time Taken Comments Blood Pressure 159/107 05/25/2024 3:20 PM COMMERCIAL CENTER MANAGER Pulse 81 05/25/2024 3:20 PM COMMERCIAL CENTER MANAGER Temperature 36.9 C (98.4 F) 05/25/2024 1:58 PM COMMERCIAL CENTER MANAGER Respiratory Rate 19 05/25/2024 3:20 PM COMMERCIAL CENTER MANAGER Oxygen Saturation 97% 05/25/2024 3:20 PM COMMERCIAL CENTER MANAGER Inhaled Oxygen Concentration - - Weight 56.7 kg (125 lb) 05/25/2024 1:58 PM COMMERCIAL CENTER MANAGER Height - - Body Mass Index - [...] APPLY LOWER LEG SPLINT 05/25/2024 3:30 PM COMMERCIAL CENTER MANAGER Closed trimalleolar fracture of right ankle, initial encounter CLOSED RX TRIMALLEOLAR FX,MANIP 05/25/2024 3:30 PM COMMERCIAL CENTER MANAGER Closed trimalleolar fracture of right ankle, initial encounter XR ANKLE RIGHT 3 OR MORE VIEWS STAT 05/25/2024 3:28 PM COMMERCIAL CENTER MANAGER Closed trimalleolar fracture of right ankle, initial encounter XR C ARM FLUORO STAT 05/25/2024 3:15 PM COMMERCIAL CENTER MANAGER Closed trimalleolar fracture of right ankle, initial encounter MOD SED OTHER PHYS/QHP EACH ADDL 15 MINS 05/25/2024 2:37 PM COMMERCIAL CENTER MANAGER Closed trimalleolar fracture of right ankle, initial encounter Ankle dislocation, right, initial encounter MOD SED OTHER PHYS/QHP EACH ADDL 15 MINS 05/25/2024 2:37 PM COMMERCIAL CENTER MANAGER Closed trimalleolar fracture of right ankle, initial encounter Ankle dislocation, right, initial encounter MOD SED OTHER PHYS/QHP INITIAL 15 MINS 5/> YRS 05/25/2024 2:37 PM COMMERCIAL CENTER MANAGER Closed trimalleolar fracture of right ankle, initial encounter Ankle dislocation, right, initial encounter XR ANKLE RIGHT 2 VIEWS STAT 05/25/2024 2:33 PM COMMERCIAL CENTER MANAGER Closed trimalleolar fracture of right ankle, initial encounter from Last 3 Months Results * CLOSED RX TRIMALLEOLAR FX,MANIP, APPLY LOWER LEG SPLINT (05/25/2024 3:30 PM COMMERCIAL CENTER MANAGER) Narrative Abbie Reyna PA-C - 05/25/2024 3:30 PM COMMERCIAL CENTER MANAGER Abbie Reyna PA-C 05/25/2024 4:27 PM Orthopedic Injury Treatment - Fracture Date/Time: 05/25/2024 3:30 PM Performed by: Abbie Reyna PA-C Authorized by: Abbie Reyna PA-C Consent: Consent obtained: Verbal Consent given by: Patient Risks, benefits, and alternatives were discussed: yes Risks discussed: Pain Jolon protocol: Patient identity confirmed: Verbally with patient [...] 3 OR MORE VIEWS (05/25/2024 3:28 PM COMMERCIAL CENTER MANAGER) Anatomical Region Laterality Modality Ankle Radiographic Ursula ging 05/25/2024 3:28 PM COMMERCIAL CENTER MANAGER Narrative 05/26/2024 7:44 AM COMMERCIAL CENTER MANAGER PROCEDURE: XR ANKLE RIGHT 3 OR MORE [...] XR C ARM FLUORO (05/25/2024 3:15 PM COMMERCIAL CENTER MANAGER) Anatomical Region Laterality Modality Radiographic Ursula ging 05/25/2024 3:05 PM COMMERCIAL CENTER MANAGER Narrative 05/26/2024 7:47 AM COMMERCIAL CENTER MANAGER PROCEDURE: C-ARM FLUOROSCOPIC SUPPORT HISTORY: fall right [...] EACH ADDL 15 MINS (05/25/2024 2:37 PM COMMERCIAL CENTER MANAGER) Narrative Jermaine Lee MD - 05/25/2024 2:37 PM COMMERCIAL CENTER MANAGER Jermaine Lee MD 05/25/2024 5:22 PM Moderate Sedation Date/Time: 05/25/2024 2:37 PM Performed by: Jermaine Lee MD Authorized by: Jermaine Lee MD Consent: Consent obtained: Verbal and emergent situation Risks, benefits, and alternatives were discussed: yes Risks discussed: Inadequate sedation and respiratory compromise necessitating ventilatory assistance and intubation Alternatives discussed: Analgesia without sedation Jolon protocol: Procedure explained and questions answered to [...] Sedation: Propofol Intra-procedure monitoring: Blood pressure monitoring, surveyor helper rod, continuous pulse oximetry, continuous capnometry, frequent LOC [...] ANKLE RIGHT 2 VIEWS (05/25/2024 2:33 PM COMMERCIAL CENTER MANAGER) Anatomical Region Laterality Modality Ankle Radiographic Ursula ging 05/25/2024 2:17 PM COMMERCIAL CENTER MANAGER Narrative 05/26/2024 7:38 AM COMMERCIAL CENTER MANAGER PROCEDURE: XR ANKLE RIGHT 2 VIEWS. HISTORY: [...] Billing Address Personal/Family Self 1975 [address] [place] [address] [facility] Care Teams Negative Checker Relationship Specialty Start Date End Date Elsewhere, Pcp PCP - General 05/25/24
[2024-07-28 20:46] VITALS: BP 144/93; PULSE 98; RESP 16; O2SAT 97
== END 2024-07-28 21:05 | disposition home or self-care (01) ==
PROVIDERS: Emergency Provider Emergency Medicine; PCP Family Medicine
DX: F10.229 Alcohol dependence with intoxication, unspecified (principal)
CPT/HCPCS: 36415; 80048; 80076; 80143; 82077; 83690; 85025; 94761; 99283; 99284; J7030

== ENCOUNTER 2024-08-01 10:15 | Outpatient (RCR) | payer BC, SELFPAY | END 2024-08-27 16:19 | disposition home or self-care (01) | PROVIDERS: PCP Family Medicine; Visit Provider Physician Assistant | DX: Z47.89 Encounter for other orthopedic aftercare (principal); S82.891D Other fracture of right lower leg, subsequent encounter for closed fracture with routine healing; Z51.89 Encounter for other specified aftercare | CPT/HCPCS: 97110; 97116; 97162; 97535 ==

== ENCOUNTER 2024-08-13 07:27 | Outpatient (CLI) | payer BC, SELFPAY | END 2024-08-13 07:28 | disposition home or self-care (01) | LOC: AMB 08-19 11:28 | PROVIDERS: PCP Family Medicine; Visit Provider Emergency Medicine Emergency Medical Services | DX: F10.129 Alcohol abuse with intoxication, unspecified (principal) | CPT/HCPCS: A0998 ==

== ENCOUNTER 2024-10-01 17:00 | Outpatient (CLI) | payer BC, SELFPAY | END 2024-10-01 17:01 | disposition home or self-care (01) | LOC: AMB 10-03 11:22 | PROVIDERS: PCP Family Medicine; Visit Provider Family Medicine | DX: R45.851 Suicidal ideations (principal) | CPT/HCPCS: A0425; A0427 ==

== ENCOUNTER 2024-10-01 17:36 | Emergency (ER) | payer BC, SELFPAY ==
--- OUTSIDE RECORDS SUMMARY | 2024-10-01 17:38 | XMS_ITS | Clinical Summary ---
Author Organization [facility] Address [address] [address] Phone Care Team Providers Care Certified Medication Technician Name Role Phone Elsewhere, Pcp Primary Care [...] Overview (05/25/2024): Hypertension (HTN) Chronic Hypertriglyceridemia 03/19/2009 Social History Tobacco Use Types Packs/Day Years Used Date Smoking Tobacco: Never Assessed EH IP Custom IPV Answer Date Recorded Do you feel UNSAFE in any of your personal relationships with your family members or any other acquaintances? No 2024 Comments Unknown Sex and Gender Information Value Date Recorded Sex Assigned at Not on file Legal Sex Female 1:53 PM OPTICAL BRIGHTENER MAKER HELPER Gender Identity Not on file Sexual Orientation Not on file Last Filed Vital Signs Vital Sign Reading Time Taken Comments Blood Pressure 159/107 05/25/2024 3:20 PM OPTICAL BRIGHTENER MAKER HELPER Pulse 81 05/25/2024 3:20 PM OPTICAL BRIGHTENER MAKER HELPER Temperature 36.9 C (98.4 F) 05/25/2024 1:58 PM OPTICAL BRIGHTENER MAKER HELPER Respiratory Rate 19 05/25/2024 3:20 PM OPTICAL BRIGHTENER MAKER HELPER Oxygen Saturation 97% 05/25/2024 3:20 PM OPTICAL BRIGHTENER MAKER HELPER Inhaled Oxygen Concentration - - Weight 56.7 kg (125 lb) 05/25/2024 1:58 PM OPTICAL BRIGHTENER MAKER HELPER Height - - Body Mass Index - [...] vaccine (Standing Order) (1 of 2) 2023 HPV Vaccine (Standing Order) Aged Out No longer eligible based on patient's age to complete this topic Insurance * Guarantor: Suzanne Duque Account Type Relation to Patient Date of Phone Billing Address Personal/Family Self 1975 [address] [place] [address] [facility] Care Teams Certified Medication Technician Relationship Specialty Start Date End Date Elsewhere, Pcp PCP - General 05/25/24
--- OUTSIDE RECORDS SUMMARY | 2024-10-01 17:38 | XMS_ITS | Clinical Summary ---
Author Organization [facility] Address [address] [place] [address] Care Team Providers Care Production Analyst Name Role Phone Roman Patten MD Primary Care Provider [phone] Source Comments You are receiving this document as you are listed as the primary care provider,follow-up provider, or the patient has been referred to you for consultation.This is in compliance with the Medicare and[facility] EHR Incentive Program,which states Providers who transition their patient to another setting of careor provider of care or refers their patient to another provider of care shouldprovide summary care record for each transition of care or referral. [employer] [employer] Allergies No known active allergies Medications hydrOXYzine [...] Comments Blood Pressure 122/86 05/09/2019 10:48 AM CRITICAL CARE SPECIALIST Pulse 70 03/25/2019 4:28 PM CRITICAL CARE SPECIALIST Temperature 37 C (98.6 F) 09/24/2013 3:01 PM CDT Respiratory Rate - - Oxygen Saturation - - Inhaled Oxygen Concentration - - Weight 56.7 kg (125 lb) 08/14/2020 2:11 PM CDT Height 157.5 cm (5' 2) 03/25/2019 4:28 PM CRITICAL CARE SPECIALIST Body Mass Index 22.86 03/25/2019 4:28 PM CRITICAL CARE SPECIALIST Plan of Treatment Health Maintenance Due Date Last Done Comments Colon Cancer Screening Plan Due 1973 Hep C Screening (Preventive Services) 1973 Mammogram 1973 HIV Screening (Preventive Services) 1989 Adult Preventive Visit 1991 DTaP/Tdap/Td Vaccine (1 - Tdap) 1992 HepB Vaccine (1) 1992 Cholesterol 2018 Pneumococcal Vaccine 50+ Yrs (1 of 1 - PCV) 2023 Zoster/Shingles Vaccine (1 o f 2) 2023 Cervical Cancer Screening 11/22/20232018, 11/21/2018, 03/12/2010 COVID-19 Vaccine ( - 2023-2 5 season) 2023 Influenza Vaccine (Season Ended) 2024 03/17/2003 HepA Vaccine Aged Out No longer eligi ble based on patient's age to complete this topic Hib Vaccine Aged Out No longer eligi ble based on patient's age to complete this topic IPV (Polio) Vaccine Aged Out No longe r eligible based on patient's age to complete this topic MCV4 Vaccine Aged Out No longer eligi ble based on patient's age to complete this topic Meningococcal B Vaccine Aged Out No l onger eligible based on patient's age to complete this topic Procedures Procedure Name Priority Date/Time Associated Diagnosis Comments CYTOLOGY (PAP) Routine 11/21/2018 4:04 PM CDT Screening for cervical cancer from Last 3 Months or Most Recently Relevant to Health Maintenance Results * PAP Test (11/21/2018 4:04 PM CDT) Case Report Pap Case: [id number] Authorizing Provider: Oneyda Bautista MD Collected: 11/21/2018 04:04 PM Ordering Location: [place] [address] Received: 11/21/2018 04:23 PM Obstetrics/Gynec ology First Screen: Theresa Hdz CT (ASCP) Specimen: Pap Test, Routine, Cervix/Endocervix 11/27/2018 6:39 AM CDT [facility] Pap Specimen Adequacy Satisfactory for evaluation, endocervical/stewart sformation zone component present. 11/27/2018 6:39 AM CDT [facility] Pap Interpretation Negative for intraepithelial lesion or malignancy (NILM). 11/27/2018 6:39 AM CDT [facility] at 0639 CDT Pap Other Findings Endometrial cells in a woman >=45 years of age. 11/27/2018 6:39 AM CDT [facility] Gross Description The specimen is received in SurePath fixative and properly labeled. 1 Pap-stained SurePath slide is prepared. 11/27/2018 6:39 AM CDT [facility] Pap Disclaimer The Pap test is a screening test designed to aid in the detection of cervical cancer and its precursor lesions. It is not a diagnostic procedure and should not be used as the sole means of detecting cervical cancer. Both false-positive and false-negative reports may occur. 11/27/2018 6:39 AM CDT [facility] Embedded Images 6:39 AM CDT [facility] Other Specimen Type ENTIRE ENDOCERVIX / Unknown 11/21/2018 4:04 PM CDT 11/21/2018 4:23 PM CDT Comment:LMP: Patient's last menstrual period was 11/17/2018. us Oneyda Bautista MD LAB PATHOLOGY Final Result [facility] [address] [place] [address], [facility] from Last 3 Months or Most Recently Relevant to Health Maintenance Care Teams Production Analyst Relationship Specialty Start Date End Date Roman Patten MD [address] [place] [id number] PCP - General 06/12/13
--- OUTSIDE RECORDS SUMMARY | 2024-10-01 17:38 | XMS_ITS | Clinical Summary ---
Author Organization [facility] Address [address] [place] [address] Care Team Providers Care Bean Snapper Name Role Phone Elsewhere, Pcp Primary Care Provider Unavailabl e Source Comments Patient records contain information from all sites at [facility]. For routine questions regarding patient records, call [phone] during business hours, M-F 8:00 AM - 5:00 PM Central Time. Record requests for emergency care only can be directed to [phone] at any time.[facility] Allergies No known active allergies Medications cholecalciferol [...] on file Legal Sex Female 11:15 AM PAVER LAYER Gender Identity Female 07/14/2017 9:05 AM CDT [...] D.O. LAB BLOOD ADD-ON Final Result [facility] [address] [place] [address], [facility] [address] [place] [address] * BI Breast Screening Bilateral (09/07/2017 7:50 [...] Recently Relevant to Health Maintenance Care Teams Bean Snapper Relationship Specialty Start Date End Date Elsewhere, Pcp PCP - General Family Medicine 06/12/20
--- OUTSIDE RECORDS SUMMARY | 2024-10-01 17:39 | XMS_ITS | Encounter Summary ---
Author Organization [facility] Address [address] [place] [address] Care Team Providers Care Factory Superintendent Name Role Phone Roman Patten MD Primary Care Provider [phone] Encounter Details Date Type Department Care Team (Late st Contact Info) Description 07/23/2015 Orders Only [facility] [address] [facility] [place] [address] David Martini, DPM [address] [facility] [place] [id number] Social History Tobacco Use Types Packs/Day Years [...] documented as of this encounter Care Teams Factory Superintendent Relationship Specialty Start Date End Date Roman Patten MD [address] [facility] [place] [address] PCP - General 06/12/13 documented as of this encounter
--- OUTSIDE RECORDS SUMMARY | 2024-10-01 17:39 | XMS_ITS | Encounter Summary ---
Author Organization [facility] Address [address] [place] [address] Care Team Providers Care Online Marketing Analyst Name Role Phone Roman Patten MD Primary Care Provider [phone] Encounter Details Date Type Department Care Team (Late st Contact Info) Description 01/21/2016 Orders Only [facility] [place] [address] [place] [address] David Martini, DP [address] [facility] [place] [id number] Social History Tobacco Use Types Packs/Day Years [...] documented as of this encounter Care Teams Online Marketing Analyst Relationship Specialty Start Date End Date Roman Patten MD [address] [facility] [place] [address] PCP - General 06/12/13 documented as of this encounter
--- OUTSIDE RECORDS SUMMARY | 2024-10-01 17:39 | XMS_ITS | Clinical Summary ---
Author Organization [facility] Address [address] [place] [address] Care Team Providers Care Cultured Marble Products Maker Name Role Phone Roman Patten MD Primary Care Provider [phone] Allergies No known active allergies Medications Metoprolol [...] on file Legal Sex Female 4:41 AM PUBLIC AFFAIRS MANAGER Gender Identity Not on file Sexual [...] Treatment Not on file [place] Advance Directives For more information, please contact: [phone] * Full Code (Latest Code Status on File) Date Activated Date Inactivated Comments 07/30/2017 6:37 PM 07/31/2017 4:21 PM Care Teams Cultured Marble Products Maker Relationship Specialty Start Date End Date Roman Patten MD PCP - General Family Practice 11/13/13
--- OUTSIDE RECORDS SUMMARY | 2024-10-01 17:39 | XMS_ITS | Clinical Summary ---
Author Organization [facility] Address [address] [place] [address] Care Team Providers Care Web Publisher Name Role Phone Jennifer Benitez MD Primary [...] hours if needed for Pain. 100 tablet 9 Active FLUoxetine 20 mg capsuleIndicati ons:Anxiety and depression Take 1 Capsule (20 mg) by mouth once daily in the morning. 30 Capsule 2 5 Active hydrOXYzine pamoate 25 mg capsuleIndicati ons:Anxiety and depression Take 1-2 Capsules (25-50 mg) by mouth every 6 hours if needed for Anxiety. 60 Capsule 1 5 Active losartan 50 mg tabletIndicatio ns:HTN (hypertension) 1 Tablet (50 MG) by mouth once daily. 90 Tablet 5 Active losartan (COZAAR) 50 mg tabletIndicatio ns:HTN (hypertension) Take 0.5 Tablet (25 mg) by mouth once daily for 1 week then increase to 1 tablets (50mg) daily. 30 Tablet 2 4 09/11/19 25 Discontinu ed(Reorder (E-cancel not sent)) hydrOXYzine pamoate (VISTARIL) 25 mg capsuleIndicati ons:Anxiety Take 1-2 Capsules (25-50 mg) by mouth every 6 hours if needed for Anxiety. 60 Capsule 1 4 09/05/19 25 Discontinu ed(Reorder (E-cancel not sent)) oxyCODONE (ROXICODONE) 5 mg immediate release tablet Take 5 mg by mouth every 4 hours if needed for Pain. 5 09/05/19 25 Discontinu ed(*Patien t states no longer taking) FLUoxetine 20 mg capsuleIndicati ons:Anxiety and depression Take 1 Capsule (20 mg) by mouth once daily in the morning. Take 1 Capsule (10 mg) by mouth once daily for 1 week then increase to 2 capsules (20mg) by mouth once daily 30 Capsule 5 09/05/19 25 Discontinu ed(Reorder (E-cancel not sent)) Active Problems Problem Noted Date Diagnosed Date Alcohol use disorder, moderate, in early remissi on 09/03/2024 Anxiety and depression 04/10/2024 HTN (hypertension) 04/10/2024 Resolved Problems Problem Noted Date Diagnosed Date Resolved Date H/O vaginal hysterectomy 09/29/202405/2024 Metrorrhagia 04/03/2019 04/10/2024 Intramural leiomyoma of uterus 04/03/2019 09/29/2024 Encounters Date Type Department Care Team Description 09/26/2024 Telephone [facility] [address] [place] [address] Jennifer Benitez MD 09/10/2024 Telephone [facility] [address] [place] [address] Jennifer Benitez MD Refill Request (losartan 50 mg) 09/04/2024 8:10 AM CDT Telemedicine [facility] [address] [place] [address] Jennifer Benitez MD Medication Management (Anxiety med check ) 09/04/2024 Travel 07/25/2024 Refill [facility] [address] [place] [address] Jennifer Benitez MD Refill Request (FLUOXETINE) from Last 3 Months Immunizations Immunization Administration [...] PHQ-2 Answer Date Recorded PHQ-2 TOTAL SCORE 5 09/04/2024 Social Connections Answer Date Recorded Do you [...] on file Legal Sex Female 6:20 AM MANIPULATIVE THERAPY SPECIALIST Gender Identity Not on file Sexual [...] Comments Blood Pressure 146/80 05/28/2024 1:39 PM MANIPULATIVE THERAPY SPECIALIST Pulse 81 05/28/2024 1:25 PM MANIPULATIVE THERAPY SPECIALIST Temperature 35.7 C (96.3 F) 11/19/2022 8:14 PM CDT Respiratory Rate 18 11/19/2022 8:14 PM CDT Oxygen Saturation 96% 05/28/2024 1:25 PM MANIPULATIVE THERAPY SPECIALIST Inhaled Oxygen Concentration - - Weight 63 kg (139 lb) 05/28/2024 1:25 PM MANIPULATIVE THERAPY SPECIALIST Height 157.5 cm (5' 2) 05/28/2024 1:25 PM MANIPULATIVE THERAPY SPECIALIST Body Mass Index 25.42 05/28/2024 1:25 PM MANIPULATIVE THERAPY SPECIALIST Plan of Treatment Health Maintenance Due Date Last Done Comments HIV for age 15-65 1988 Hepatitis B series for 19+ ( 1 of 3 - 19+ 3-dose series) 1992 Pneumococcal series for age 50+ (1 of 2 - PCV) 1992 Colonoscopy through age 75 2018 Mammogram for age 45-75 2018 Zoster (shingles) series for age 50+ (1 of 2) 2023 COVID-19 vaccine series ( season) 2023 Influenza Vaccine (Season Ended) 2024 03/17/20 03 BMI (ht and wt on same day) for age 18+ 05/28/2025 05/28/2024, 06/11/2019, 07/01/2016, Additional history exists Depression screening for age 12+ 09/04/2025 09/04/2024, 03/25/2024, 03/18/2024, Additional history exists Lipids for age 45-75 04/10/2029 04/10/2024 Tetanus booster 12/14/2031 12/13/2021 Tdap Completed 12/13/2021 Hepatitis C screening for ag e 18-79 Completed 04/10/2024 Procedures Procedure Name Priority Date/Time Associated Diagnosis Comments ANTI HCV Routine 04/10/2024 3:47 PM MANIPULATIVE THERAPY SPECIALIST Encounter for HCV screening test for low risk patient LIPID PANEL W REFLEX MEASURED LDL Routine 04/10/2024 3:47 PM MANIPULATIVE THERAPY SPECIALIST Screening cholesterol level from Last 3 Months or Most Recently Relevant to Health Maintenance Results * (ABNORMAL) LIPID PANEL W REFLEX MEASURED LDL (04/10/2024 3:47 PM MANIPULATIVE THERAPY SPECIALIST) CHOLESTEROL, TOTAL 243(H) <200 mg/dL [facility] HDL CHOLESTEROL 97 > OR = 50 mg/dL [facility] TRIGLYCERIDES 115 <150 mg/dL [facility] LDL-CHOLESTEROL 123(H) mg/dL (calc) [facility] Comment: Reference range: <100 Desirable range <100 mg/dL for primary prevention; <70 mg/dL for patients with CHD or diabetic patients with > or = 2 CHD risk factors. LDL-C is now calculated using the Victor Hugo calculation, which is a validated novel method providing better accuracy than the Friedewald equation in the estimation of LDL-C. Kushal SS et al. SARINA. 2013;310(19): 0136-2198 (http://education.[employer].Gamblino/faq/FYN291) CHOL/HDLC RATIO 2.5 <5.0 (calc) [facility] NON HDL CHOLESTEROL 146(H) <130 mg/dL (calc) [facility] Comment: For patients with diabetes plus 1 major ASCVD risk factor, treating to a non-HDL-C goal of <100 mg/dL (LDL-C of <70 mg/dL) is considered a therapeutic option. Blood BLOOD SPECIMEN / Unknown 04/10/2024 3:47 PM MANIPULATIVE THERAPY SPECIALIST 04/10/2024 3:47 PM MANIPULATIVE THERAPY SPECIALIST us Jennifer Benitez MD CHEMISTRY Fi nal Result [facility] [address] [place] [address], [facility] [address] [place] [address] * ANTI HCV (04/10/2024 3:47 PM MANIPULATIVE THERAPY SPECIALIST) HEPATITIS C ANTIBODY NON-REACTI VE NON-REACT DULCE [facility] Comment: HCV antibody was non-reactive. There is no laboratory evidence of HCV infection. In most cases, no further action is required. However, if recent HCV exposure is suspected, a test for HCV RNA (test code 70245) is suggested. For additional information please refer to http://education.[employer]/faq/VZZ87n7 (This link is being provided for informational/ educational purposes only.) Blood BLOOD SPECIMEN / Unknown 04/10/2024 3:47 PM MANIPULATIVE THERAPY SPECIALIST 04/10/2024 3:47 PM MANIPULATIVE THERAPY SPECIALIST Jennifer Benitez MD SEND OUTS Fi nal Result [facility] [address] [place] [address], [facility] [address] [place] [phone] from Last 3 Months or Most Recently Relevant to Health Maintenance Insurance MEDICA PASSPORT MEDICA PAS[employer]ORT BLUE [facility] [id number] [place] [address] [facility] Advance Directives * Full Code (Latest Code Status on File) Date Activated Date Inactivated Comments 04/03/2019 6:13 AM 04/03/2019 2:55 PM Care Teams Web Publisher Relationship Specialty Start Date End Date Jennifer Benitez MD [address] [place] [address] PCP - General Family Practice 03/25/24
[2024-10-01 17:49] VITALS: BP 138/100; PULSE 91; RESP 18; TEMP 36.6; O2SAT 97; BMI 20.4
--- NOTE | 2024-10-01 17:56 | ED_ITS ---
HPI - General Adult General Time Seen by Provider: 17:57 <Jodie Rowley MD - Last Filed: 10/03/24 08:40> Date Seen: 10/01/24 <Jodie Rowley MD - Last Filed: 10/03/24 08:40> Chief complaint: Psychiatric Problem/Disorder <Jodie Rowley MD - Last Filed: 10/03/24 08:40> Stated complaint: Mental Health <Jodie Rowley MD - Last Filed: 10/03/24 08:40> Time Seen by Provider: 10/01/24 17:45 <Jodie Rowley MD - Last Filed: 10/03/24 08:40> Source: patient, EMS and old records reviewed <Jodie Rowley MD - Last Filed: 10/03/24 08:40> Mode of arrival: EMS <Jodie Rowley MD - Last Filed: 10/03/24 08:40> History of Present Illness HPI narrative: This 49-year-old female is brought in by EMS, her son calling reportedly called. Patient is not forthcoming on why she is here. She states she does not know. She frequently will not answer questions but when pressed, will start talking. She reportedly told her son that she wanted to drown herself in the bathtub. He presumably called 911 then. Patient told nursing staff that she does not drink and had not been drinking. We did review with her that she frequently has been intoxicated when in here and that would be doing blood work checking for this, she stated okay. She tells me she is not going to harm herself, had no intent in has no suicidal ideation. When asked if she was attempting to get [place] attention with this statement, she did agree that that was what she was trying to do. She denies any pain, no trauma, no illness. <Jodie Rowley MD - Last Filed: 10/03/24 08:40> Related Data Home medications: Home Medications ?Medication ?Instructions ?Recorded ?Confirmed aspirin 325 mg tablet 325 mg PO DAILY 07/15/2407/23 fluoxetine 10 mg capsule 10 mg PO DAILY 07/15/2425 losartan 50 mg tablet 50 mg PO 07/15/24 tramadol 50 mg tablet 50 mg PO Q4-6H PRN pain 06/2910/01/24 Previous Rx's ?Medication ?Instructions ?Recorded escitalopram oxalate 10 mg tablet 10 mg PO QDAY #30 ta bs 12/06/23 <Jodie Rowley MD - Last Filed: 10/03/24 08:40> Allergies/adverse reactions: Allergies Allergy/AdvReac Type Severity Reaction Status Date / Time No Known Drug Allergies Allergy Verified 10/01/24 17:55 <Jodie Rowley MD - Last Filed: 10/03/24 08:40> Review of Systems Status of ROS: Reports: 6 or more systems reviewed and unremarkable except as noted in History and below <Jodie Rowley MD - Last Filed: 10/03/24 08:40> [facility] Medical History: Medical History History of hypothyroidism ?Z86.39 - Personal history of other endocrine, nutritional and metabolic disease (ICD-10) <Jodie Rowley MD - Last Filed: 10/03/24 08:40> Surgical History: Surgical History History of foot surgery ?Z98.890 - Other specified postprocedural states (ICD-10) Hx of hysterectomy ?Z90.710 - Acquired absence of both cervix and uterus (ICD-10) History of surgery on left wrist ?Z98.890 - Other specified postprocedural states (ICD-10) <Jodie Rowley MD - Last Filed: 10/03/24 08:40> Social History: Social History Smoking Status: Former smoker Do you use any of these nicotine containing products: None Second hand tobacco smoke exposure: No How often do you have a drink containing alcohol: never How often do you have six or more drinks on one occasion: Never AUDIT-C Alcohol total score: 0 Non-prescribed substance use: denies use service: No <Jodie Rowley MD - Last Filed: 10/03/24 08:40> Exam Const: Vital Signs, click to edit/add: Vital Signs - 24 hr 10/02/24 10:20 Pulse Rate [Right Pulse Oximeter] 100 Respiratory Rate 16 Blood Pressure [Ri ght Upper Arm] 168/121 H Pulse Oximetry 96 Oxygen Delivery Me thod Room Air This 49-year-old female smells of alcohol, is lying on the bed in position when I come into her room in exam room 1. She is easily arousable, maintaining her airway. Sclera are injected but conjugate gaze. Symmetrical facial function. When she does talk, her speech seems normal. Neck supple. Lungs clear, good air entry, no wheezing or crackles, no tachypnea. CV regular rate and rhythm, no murmur, normal S1-S2. Abdomen is soft, nontender, nondistended, no organomegaly, no rebound or guarding. She follows commands, arms and legs are fully mobile. She has been standing up in the ER, did see her on the camera before she got into the bed. She was standing in the room in able to ambulate in the room. <Jodie Rowley MD - Last Filed: 10/03/24 08:40> Vital Signs, click to edit/add: Vital Signs - 24 hr 10/02/24 10:20 Pulse Rate [Right Pulse Oximeter] 100 Respiratory Rate 16 Blood Pressure [Ri ght Upper Arm] 168/121 H Pulse Oximetry 96 Oxygen Delivery Me thod Room Air <Jesse Chavarria MD - Last Filed: 10/02/24 08:37> Documenting provider has reviewed patient's vital signs: yes <Jodie Rowley MD - Last Filed: 10/03/24 08:40> Course Course ED Course: Patient obviously is intoxicated. She is denying suicidality to me but is intoxicated. She does admit making the statement about drowning herself but seems that this may have been attention seeking behavior. In any event, she is intoxicated and will need to monitor her here. I will try to talk to her son for more information. <Jodie Rowley MD - Last Filed: 10/03/24 08:40> Reevaluation(s) Time of Reevaluation #1: 18:04 <Jodie Rowley MD - Last Filed: 10/03/24 08:40> Reevaluation #1: Attempted to call the number listed for her son Lucio. It states that he has calling restrictions and it will not allow our call to go through. <Jodie Rowley MD - Last Filed: 10/03/24 08:40> Time of Reevaluation #2: 19:35 <Jodie Rowley MD - Last Filed: 10/03/24 08:40> Reevaluation #2: Patient was just up, attempted to go to the bathroom. She did come back in eat a sandwich. Nursing staff has attempted to call the contact phone number listed as well and it will not allow us through. We will observe patient this point, allow some further sobering. Reviewing her history and past visits to the ED, there appears to be a pattern of harmful gestures or statements of suicidality for attention purposes. She is giving the same read her a tonight. We cannot contact anybody to safely release her to to go home to at this point. Thus, we will observe in ED, continue to evaluate. Will consider telehealth if there is indeed some suicidality as she coni up. We may need to involve psychotherapist social worker in the morning if we cannot get through to a family member. <Jodie Rowley MD - Last Filed: 10/03/24 08:40> Time of Reevaluation #3: 21:23 <Jodie Rowley MD - Last Filed: 10/03/24 08:40> Reevaluation #3: Patient requesting something for anxiety. Doubt she would be developing any alcohol withdrawal at this time. Will start with 50 mg oral hydroxyzine. Will continue to monitor. We have been unsuccessful in finding anyone that might be able to monitor her on discharge. She has been denying any suicidality. Thus, patient will continue to be monitored here. <Jodie Rowley MD - Last Filed: 10/03/24 08:40> Additional Reevaluation(s): 10:28 p.m.: Patient has been trying to call people she knows. She was able to talk to her friend neck but he will not be able to come get her until 10:30 a.m. tomorrow morning. 10:52 p.m.: Patient is requesting medication for headache. 1000 mg oral acetaminophen ordered. 11:02 p.m.: Patient is now requesting something for sleep. Will see how she responds to 5 mg oral Zyprexa, this certainly can help stabilize anxiety in any underlying mood disorder is as well. She has continued to deny suicidality here. <Jodie Rowley MD - Last Filed: 10/03/24 08:40> Vital Signs Vital signs: Initial Vital Signs Temperature 98 F 10/01/24 17:49 Temperature Source Temporal Artery Scan 10/01/24 17:49 Pulse Rate 91 10/01/24 17:49 Pulse Rhythm Regular 10/01/24 17:49 Pulse Strength 3+ Normal 10/01/24 17:49 Respiratory Rate 18 10/01/24 17:49 Blood Pressure 138/100 H 10/01/24 17:49 Blood Pressure Mean 112 H 10/01/24 17:49 Blood Pressure Position Semi-Fowlers 10/01/24 17:49 Pulse Oximetry 97 10/01/24 17:49 Oxygen Delivery Method Room Air 10/01/24 17:49 Vital Signs Temperature 98 F 10/01/24 17:49 Pulse Rate 91 10/01/24 17:49 Respiratory Rate 18 10/01/24 17:49 Blood Pressure 138/100 H 10/01/24 17:49 Pulse Oximetry 97 10/01/24 17:49 Oxygen Delivery Method Room Air 10/01/24 17:49 Temperature 97.6 F 10/02/24 06:04 Pulse Rate 100 10/02/24 10:20 Respiratory Rate 16 10/02/24 10:20 Blood Pressure 168/121 H 10/02/24 10:20 Pulse Oximetry 96 10/02/24 10:20 Oxygen Delivery Method Room Air 10/02/24 10:20 <Jodie Rowley MD - Last Filed: 10/03/24 08:40> Initial Vital Signs Temperature 98 F 10/01/24 17:49 Temperature Source Temporal Artery Scan 10/01/24 17:49 Pulse Rate 91 10/01/24 17:49 Pulse Rhythm Regular 10/01/24 17:49 Pulse Strength 3+ Normal 10/01/24 17:49 Respiratory Rate 18 10/01/24 17:49 Blood Pressure 138/100 H 10/01/24 17:49 Blood Pressure Mean 112 H 10/01/24 17:49 Blood Pressure Position Semi-Fowlers 10/01/24 17:49 Pulse Oximetry 97 10/01/24 17:49 Oxygen Delivery Method Room Air 10/01/24 17:49 Vital Signs Temperature 98 F 10/01/24 17:49 Pulse Rate 91 10/01/24 17:49 Respiratory Rate 18 10/01/24 17:49 Blood Pressure 138/100 H 10/01/24 17:49 Pulse Oximetry 97 10/01/24 17:49 Oxygen Delivery Method Room Air 10/01/24 17:49 Temperature 97.6 F 10/02/24 06:04 Pulse Rate 100 10/02/24 10:20 Respiratory Rate 16 10/02/24 10:20 Blood Pressure 168/121 H 10/02/24 10:20 Pulse Oximetry 96 10/02/24 10:20 Oxygen Delivery Method Room Air 10/02/24 10:20 <Jesse Chavarria MD - Last Filed: 10/02/24 08:37> Medications Administered Medications: Discontinued Medications Generic Name Dose Route Start Last Admin Trade Name Freq PRN Reason Stop Dose Admin Acetaminophen 1,000 mg 10/01/24 22:51 10/01/24 22:55 Acetaminophen 500 Mg Tablet PO 10/01/24 22:52 1,000 mg ONCE ONE Administration Hydroxyzine Pamoate 50 mg 10/01/24 21:22 10/01/24 21:25 Hydroxyzine Pamoate 25 Mg Capsule PO 10/01/24 21:23 50 mg ONCE ONE Administration Olanzapine 5 mg 10/01/24 23:02 10/01/24 23:04 Olanzapine 5 Mg Tab.Rapdis PO 10/01/24 23:03 5 mg ONCE ONE Administration <Jodie Rowley MD - Last Filed: 10/03/24 08:40> Discontinued Medications Generic Name Dose Route Start Last Admin Trade Name Freq PRN Reason Stop Dose Admin Acetaminophen 1,000 mg 10/01/24 22:51 10/01/24 22:55 Acetaminophen 500 Mg Tablet PO 10/01/24 22:52 1,000 mg ONCE ONE Administration Hydroxyzine Pamoate 50 mg 10/01/24 21:22 10/01/24 21:25 Hydroxyzine Pamoate 25 Mg Capsule PO 10/01/24 21:23 50 mg ONCE ONE Administration Olanzapine 5 mg 10/01/24 23:02 10/01/24 23:04 Olanzapine 5 Mg Tab.Rapdis PO 10/01/24 23:03 5 mg ONCE ONE Administration <Jesse Chavarria MD - Last Filed: 10/02/24 08:37> Medical Decision Making MDM Narrative Medical decision making narrative: Addendum at 8:36 a.m. 10/02/2024 the patient reports that this time that she feels much better, she is awake alert able to drink water. Will let her eat some breakfast. She was quite intoxicated at 0.47 alcohol level. The patient this time is clinically sober and denies any suicide ideation plan feels safe at home does not feel threatened at home. I think she is okay to go home with a friend. And this will be arranged. Recommend follow-up with primary care to discuss her issues in the next few days. <Jesse Chavarria MD - Last Filed: 10/02/24 08:37> Lab Data Lab results reviewed: Yes I reviewed the patient's lab results <Jodie Rowley MD - Last Filed: 10/03/24 08:40> Labs: Lab Results 10/01/24 10/01/24 Range/Units 18:20 21:10 WBC 5.96 (4.50-11.00) K/uL RBC 4.76 (4.00-5.20) m/uL Hgb 15.5 (12.0-16.0) gm/dL Hct 45.9 (33.0-51.0) % MCV 96 (80-100) fL MCH 33 (26-34) pg MCHC 34 (32-36) gm/dL RDW Coeff of Cally 13.1 (11.5-15.5) % Plt Count 342 (140-440) K/uL Neut % (Auto) 61.3 (42.0-72.0) % Lymph % (Auto) 33.6 (20-44) % [place] % (Auto) 3.9 (0.0-11.0) % Eos % (Auto) 0.2 (0.0-7.0) % Baso % (Auto) 0.7 (0.0-3.0) % Neut # (Auto) 3.66 (1.7-7.0) K/uL Lymph # (Auto) 2.00 (0.90-2.90) K/uL [place] # (Auto) 0.20 (0.00-0.90) K/UL Eos # (Auto) 0.01 (0.00-0.50) K/uL Baso # (Auto) 0.04 (0.00-0.30) K/uL Abs Immat Gran (auto) 0.02 (0.00-0.30) K/uL Imm/Tot Granulo (auto) 0.3 % Sodium 145 (135-149) mmol/L Potassium 4.0 (3.6-5.1) mmol/L Chloride 104 (96-114) mmol/L Carbon Dioxide 27 (20-32) mmol/L Anion Gap 14 (7-15) mEq/L BUN 11 (7-30) mg/dL Creatinine 0.8 (0.5-1.5) mg/dL Estimated Creat Clear 68.51 Estimated GFR 89 ml/min Glucose 84 (60-115) mg/dL Calcium 8.5 (8.4-10.6) mg/dL Total Bilirubin 0.6 (0.1-1.5) mg/dL Direct Bilirubin 0.2 (0.0-0.5) mg/dL AST 44 H (12-35) U/L ALT 22 (4-35) U/L Alkaline Phosphatase 70 (40-150) U/L Total Protein 7.7 (6.0-8.3) g/dL Albumin 4.6 (3.3-5.0) g/dL Salicylates < 1.0 L (1.0-10) mg/dL Urine Opiates Screen Negative (Negative) Ur Oxycodone Screen Negative (Negative) Urine Methadone Screen Negative (Negative) Acetaminophen < 10.0 (10.0-30.0) ug/mL Ur Barbiturates Screen Negative (Negative) U Tricyclic Antidepress Negative (Negative) Ur Phencyclidine Scrn Negative (Negative) Ur Amphetamines Screen Negative (Negative) U Methamphetamines Scrn Negative (Negative) U Benzodiazepines Scrn Negative (Negative) Urine Cocaine Screen Negative (Negative) U Marijuana (THC) Screen Negative (Negative) Ur Drug Screen Comment See Note Ethyl Alcohol 0.47 H* (0.01-0.03) % <Jodie Rowley MD - Last Filed: 10/03/24 08:40> Lab Results 10/01/24 10/01/24 Range/Units 18:20 21:10 WBC 5.96 (4.50-11.00) K/uL RBC 4.76 (4.00-5.20) m/uL Hgb 15.5 (12.0-16.0) gm/dL Hct 45.9 (33.0-51.0) % MCV 96 (80-100) fL MCH 33 (26-34) pg MCHC 34 (32-36) gm/dL RDW Coeff of Cally 13.1 (11.5-15.5) % Plt Count 342 (140-440) K/uL Neut % (Auto) 61.3 (42.0-72.0) % Lymph % (Auto) 33.6 (20-44) % [place] % (Auto) 3.9 (0.0-11.0) % Eos % (Auto) 0.2 (0.0-7.0) % Baso % (Auto) 0.7 (0.0-3.0) % Neut # (Auto) 3.66 (1.7-7.0) K/uL Lymph # (Auto) 2.00 (0.90-2.90) K/uL [place] # (Auto) 0.20 (0.00-0.90) K/UL Eos # (Auto) 0.01 (0.00-0.50) K/uL Baso # (Auto) 0.04 (0.00-0.30) K/uL Abs Immat Gran (auto) 0.02 (0.00-0.30) K/uL Imm/Tot Granulo (auto) 0.3 % Sodium 145 (135-149) mmol/L Potassium 4.0 (3.6-5.1) mmol/L Chloride 104 (96-114) mmol/L Carbon Dioxide 27 (20-32) mmol/L Anion Gap 14 (7-15) mEq/L BUN 11 (7-30) mg/dL Creatinine 0.8 (0.5-1.5) mg/dL Estimated Creat Clear 68.51 Estimated GFR 89 ml/min Glucose 84 (60-115) mg/dL Calcium 8.5 (8.4-10.6) mg/dL Total Bilirubin 0.6 (0.1-1.5) mg/dL Direct Bilirubin 0.2 (0.0-0.5) mg/dL AST 44 H (12-35) U/L ALT 22 (4-35) U/L Alkaline Phosphatase 70 (40-150) U/L Total Protein 7.7 (6.0-8.3) g/dL Albumin 4.6 (3.3-5.0) g/dL Salicylates < 1.0 L (1.0-10) mg/dL Urine Opiates Screen Negative (Negative) Ur Oxycodone Screen Negative (Negative) Urine Methadone Screen Negative (Negative) Acetaminophen < 10.0 (10.0-30.0) ug/mL Ur Barbiturates Screen Negative (Negative) U Tricyclic Antidepress Negative (Negative) Ur Phencyclidine Scrn Negative (Negative) Ur Amphetamines Screen Negative (Negative) U Methamphetamines Scrn Negative (Negative) U Benzodiazepines Scrn Negative (Negative) Urine Cocaine Screen Negative (Negative) U Marijuana (THC) Screen Negative (Negative) Ur Drug Screen Comment See Note Ethyl Alcohol 0.47 H* (0.01-0.03) % <Jesse Chavarria MD - Last Filed: 10/02/24 08:37> Discharge Plan Discharge Clinical Impression: Alcohol intoxication <Jodie Rowley MD - Last Filed: 10/03/24 08:40> Patient Disposition: Home, Self-Care <Jodie Rowley MD - Last Filed: 10/03/24 08:40> Condition: Stable <Jodie Rowley MD - Last Filed: 10/03/24 08:40> Instructions: Alcohol Use Disorder (ED) <Jodie Rowley MD - Last Filed: 10/03/24 08:40> Additional Instructions: I highly encourage you to seek help with your alcohol use. You can talk to your primary care provider in clinic, contact your insurance to see where you might be covered for treatment. [facility] is a readily accessible program that you could explore. If at any point you do feel that your mental health is worsening, are feeling suicidal, please seek emergent medical evaluation. <Jodie Rowley MD - Last Filed: 10/03/24 08:40> Prescriptions: No Action escitalopram oxalate 10 mg tablet 10 mg PO QDAY Qty: 30 2RF losartan 50 mg tablet 50 mg PO aspirin 325 mg tablet 325 mg PO DAILY tramadol 50 mg tablet 50 mg PO Q4-6H PRN (Reason: pain) fluoxetine 10 mg capsule 10 mg PO DAILY <Jodie Rowley MD - Last Filed: 10/03/24 08:40> Follow Up/Referrals: Ravi Smith MD [Primary Care Provider, Family Practice] <Jodie Rowley MD - Last Filed: 10/03/24 08:40> Stand Alone Forms: [employer] Info Instructions <Jodie Rowley MD - Last Filed: 10/03/24 08:40>
[2024-10-01 18:24] LABS: Basophils Absolute Auto 0.04 K/uL (0.00-0.30); Basophils Percent Auto 0.7 % (0.0-3.0); Eosinophils Absolute Auto 0.01 K/uL (0.00-0.50); Eosinophils Percent Auto 0.2 % (0.0-7.0); Hematocrit 45.9 % (33.0-51.0); Hemoglobin* 15.5 gm/dL (12.0-16.0); Immature Granulocytes Abs Auto 0.02 K/uL (0.00-0.30); Immature Granulocytes Pct Auto 0.3 %; Lymphocytes Percent Auto 33.6 % (20-44); Mean Corpuscular HGB Conc 34 gm/dL (32-36); Mean Corpuscular Hemoglobin 33 pg (26-34); Mean Corpuscular Volume 96 fL (80-100); Monocytes Percent Auto 3.9 % (0.0-11.0); Neutrophils Absolute Auto 3.66 K/uL (1.7-7.0); Neutrophils Percent Auto 61.3 % (42.0-72.0); Platelet Count* 342 K/uL (140-440); RDW Coefficient of Variation % 13.1 % (11.5-15.5); Red Blood Count 4.76 m/uL (4.00-5.20); White Blood Count* 5.96 K/uL (4.50-11.00)
[2024-10-01 18:27] LABS: Slide Review Reflex No
[2024-10-01 18:32] LABS: Albumin* 4.6 g/dL (3.3-5.0); Chloride* 104 mmol/L (96-114); Sodium* 145 mmol/L (135-149)
[2024-10-01 18:34] LABS: Alanine Aminotransferase* 22 U/L (4-35); Anion Gap 14 mEq/L (7-15); Aspartate Amino Transferase* 44 U/L (12-35); Blood Urea Nitrogen* 11 mg/dL (7-30); Carbon Dioxide* 27 mmol/L (20-32); Creatinine* 0.8 mg/dL (0.5-1.5); Est. Creatinine Clearance* 68.51; Estimated Glomerular Filt Rate 89 ml/min
[2024-10-01 18:35] LABS: Alkaline Phosphatase* 70 U/L (40-150); Bilirubin Direct* 0.2 mg/dL (0.0-0.5); Bilirubin Total* 0.6 mg/dL (0.1-1.5); Calcium* 8.5 mg/dL (8.4-10.6); Glucose* 84 mg/dL (60-115); Total Protein* 7.7 g/dL (6.0-8.3)
[2024-10-01 18:40] LABS: Acetaminophen* < 10.0 ug/mL (10.0-30.0); Salicylate* < 1.0 mg/dL (1.0-10)
[2024-10-01 19:09] LABS: Ethanol* 0.47 % (0.01-0.03)
[2024-10-01 19:49] VITALS: BP 175/130; PULSE 90; RESP 22; TEMP 36.6; O2SAT 95
[2024-10-01] MEDS: hydrOXYzine pamoate 25 MG CAPSULE 50 MG PO (21:25)
[2024-10-01 21:29] LABS: Amphetamine Screen Urine Negative (Negative); Barbiturate Screen Urine Negative (Negative); Benzodiazepines Screen Urine Negative (Negative); Cannabinoid Screen Urine Negative (Negative); Cocaine Screen Urine Negative (Negative); Methadone Screen Urine Negative (Negative); Methamphetamines Screen Urine Negative (Negative); Opiate Screen Urine Negative (Negative); Oxycodone Screen Urine Negative (Negative); Phencyclidine Screen Urine Negative (Negative); Tricyclic Antidepressant Urine Negative (Negative)
[2024-10-01] MEDS: ACETAMINOPHEN 500 MG TABLET 1000 MG PO (22:55)
[2024-10-01 22:59] VITALS: BP 165/110; PULSE 93; RESP 20; O2SAT 95
[2024-10-01] MEDS: OLANZapine 5 MG TAB.RAPDIS PO (23:04)
[2024-10-02 06:04] VITALS: BP 118/80; PULSE 71; RESP 16; TEMP 36.4; O2SAT 97
[2024-10-02 10:20] VITALS: BP 168/121; PULSE 100; RESP 16; O2SAT 96
--- NOTE | 2024-10-02 11:32 | PC.SOCIAL ---
Social work: Prior to pt leaving the ED, received call from Chloe Sanchez at [facility] who states they have an open case on pt and concerns about discharge. Provided Chloe with nurse station phone number in ED to follow up on concerns and connect with pt. Secure emailed records from pt's medical chart to Chloe Sanchez as requested.
== END 2024-10-02 11:04 | disposition home or self-care (01) ==
PROVIDERS: Emergency Provider Family Medicine; PCP Family Medicine
DX: F10.129 Alcohol abuse with intoxication, unspecified (principal)
CPT/HCPCS: 36415; 80053; 80143; 80179; 80306; 82077; 82248; 85025; 99284; A9270